=== PATIENT | male | born 1955 | race African-American/Black ===

== ENCOUNTER 2017-01-05 16:24 | Inpatient (IN) | payer OTHER ==
[~2017-01-05] VITALS: Ht 154.9 cm; Wt 43.3 kg
[2017-01-05] VITALS (9 sets, daily range): BP systolic 123–162; BP diastolic 84–109; PULSE 101–120; RESP 20–32; TEMP 98.7–98.8; O2SAT 86–100
--- NOTE | 2017-01-05 16:50 | PD ---
HPI Chief Complaint: Respiratory Distress Time Seen by Provider: 16:48 Travel History International Travel<30 days: No Contact w/Intl Traveler<30days: No Traveled to known affect area: No History of Present Illness HPI 61 YO M with unknown medical history presents to the ED for evaluation of 2 day history of tachypnea, hypoxia, respiratory distress. The patient's brother is at bedside and states that he was discharged from an outside hospital 2 days ago. He is unable to provide any other meaningful history. PFSH Past Medical History Chemotherapy: Yes Social History Tobacco Use: No Allergies-Medications (Allergen,Severity, Reaction): Coded Allergies: No Known Allergies (Unverified , 01/05/17) Reported Meds & Prescriptions Reported Meds & Active Scripts Active No Active Prescriptions or Reported Medications Review of Systems Except as stated in HPI: all other systems reviewed are Neg Physical Exam Narrative GENERAL: Well-nourished, well-developed petite black male in respiratory distress. SKIN: Focused skin assessment warm/dry. HEAD: Normocephalic. EYES: No scleral icterus. No injection or drainage. NECK: Supple, trachea midline. No JVD or lymphadenopathy. CARDIOVASCULAR: Regular rate and rhythm without murmurs, gallops, or rubs. RESPIRATORY: Breath coarse with expiratory wheezes bilaterally. Positive accessory muscle use. Positive retractions. GASTROINTESTINAL: Abdomen soft, non-tender, nondistended. MUSCULOSKELETAL: No cyanosis. Anasarca. BACK: Nontender without obvious deformity. No CVA tenderness. Data Data Last Documented VS Vital Signs Date Time Temp Pulse Resp B/P (MAP) Pulse Ox O2 Delivery O2 Flow Rate FiO2 01/05/17 18:49 97 Nasal Cannula 4.00 01/05/17 18:46 101 23 162/109 (126) 01/05/17 17:26 60 01/05/17 16:56 98.7 Orders Orders Complete Blood Count With Diff (01/05/17 16:52) Comprehensive Metabolic Panel (01/05/17 16:52) B-Type Natriuretic Peptide (01/05/17 16:52) Act Partial Throm Time (Ptt) (01/05/17 16:52) Prothrombin Time / Inr (Pt) (01/05/17 16:52) Ckmb (Isoenzyme) Profile (01/05/17 16:52) Troponin I (01/05/17 16:52) Arterial Blood Gas (Abg) (01/05/17 16:52) Urinalysis - C+S If Indicated (01/05/17 16:52) Iv Access Insert/Monitor (01/05/17 16:52) Electrocardiogram (01/05/17 16:52) Ecg Monitoring (01/05/17 16:52) Oximetry (01/05/17 16:52) Oxygen Administration (01/05/17 16:52) Chest, Single Ap (01/05/17 16:52) Sodium Chloride 0.9% Flush (Ns Flush) (01/05/17 17:00) Methylprednisolone So Succ Inj (Solumedr (01/05/17 17:00) Resp Bipap / Cpap Non Invas Vt (01/05/17 17:19) Resp Blood Gas Venous (01/05/17 ) Furosemide Inj (Lasix Inj) (01/05/17 18:30) Restraints Non-Violent VIKTORIA.Q3H (01/05/17 18:33) Lorazepam Inj (Ativan Inj) (01/05/17 18:45) Urinary Catheter Insert/Apply (01/05/17 18:33) Albuterol-Ipratropium Neb (Duoneb Neb) (01/05/17 18:45) CKMB (01/05/17 17:10) CKMB% (01/05/17 17:10) Admit Order (Ed Use Only) (01/05/17 19:45) Labs Laboratory Tests Test 01/05/17 17:10 01/05/17 18:00 01/05/17 18:06 White Blood Count 10.5 TH/MM3 Red Blood Count 4.33 MIL/MM3 Hemoglobin 12.3 GM/DL Hematocrit 37.5 % Mean Corpuscular Volume 86.8 FL Mean Corpuscular Hemoglobin 28.4 PG Mean Corpuscular Hemoglobin Concent 32.7 % Red Cell Distribution Width 16.4 % Platelet Count 214 TH/MM3 Mean Platelet Volume 6.9 FL Neutrophils (%) (Auto) 84.3 % Lymphocytes (%) (Auto) 2.7 % Monocytes (%) (Auto) 11.1 % Eosinophils (%) (Auto) 1.6 % Basophils (%) (Auto) 0.3 % Neutrophils # (Auto) 8.9 TH/MM3 Lymphocytes # (Auto) 0.3 TH/MM3 Monocytes # (Auto) 1.2 TH/MM3 Eosinophils # (Auto) 0.2 TH/MM3 Basophils # (Auto) 0.0 TH/MM3 CBC Comment AUTO DIFF Differential Comment AUTO DIFF CONFIRMED Platelet Estimate NORMAL Platelet Morphology Comment NORMAL Prothrombin Time 12.7 SEC Prothromb Time International Ratio 1.1 RATIO Activated Partial Thromboplast Time 27.6 SEC Blood Urea Nitrogen 9 MG/DL Creatinine 0.60 MG/DL Random Glucose 54 MG/DL Total Protein 6.8 GM/DL Albumin 2.6 GM/DL Calcium Level 7.7 MG/DL Alkaline Phosphatase 82 U/L Aspartate Amino Transf (AST/SGOT) 49 U/L Alanine Aminotransferase (ALT/SGPT) 20 U/L Total Bilirubin 0.9 MG/DL Sodium Level 123 MEQ/L Potassium Level 3.9 MEQ/L Chloride Level 90 MEQ/L Carbon Dioxide Level 24.0 MEQ/L Anion Gap 9 MEQ/L Estimat Glomerular Filtration Rate 167 ML/MIN Total Creatine Kinase 462 U/L Creatine Kinase MB 6.3 NG/ML Creatine Kinase MB % 1.4 % Troponin I LESS THAN 0.02 NG/ML B-Type Natriuretic Peptide 114 PG/ML Urine Color YELLOW Urine Turbidity CLEAR Urine pH 5.5 Urine Specific [place] 1.022 Urine Protein TRACE mg/dL Urine Glucose (UA) NEG mg/dL Urine Ketones NEG mg/dL Urine Occult Blood NEG Urine Nitrite NEG Urine Bilirubin NEG Urine Urobilinogen 2.0 MG/DL Urine Leukocyte Esterase NEG Urine WBC 1 /hpf Urine Hyaline Casts 6 /lpf Urine Granular Casts 1 /lpf Urine Mucus FEW /lpf Microscopic Urinalysis Comment CULT NOT INDICATED Urine Osmolality 722 MOSM/KG Urine Random Sodium 83 MEQ/L Urine Random Potassium 55 MEQ/L Urine Random Chloride 180 MEQ/L Blood Gas Puncture Site VENOUS Blood Gas Patient Temperature 98.6 Blood Gas HCO3 26 mmol/L Blood Gas Base Excess 0.1 mmol/L Blood Gas Oxygen Saturation 18 % Arterial Blood pH 7.29 Arterial Blood Partial Pressure CO2 56 mmHg Arterial Blood Partial Pressure O2 17 mmHG Arterial Blood Oxygen Content 3.1 Vol % Arterial Blood Carboxyhemoglobin 1.3 % Arterial Blood Methemoglobin 0.7 % Blood Gas Hemoglobin 12.0 G/DL Oxygen Delivery Device BIPAP Blood Gas Ventilator Setting 8/5/RATE12 Blood Gas Inspired Oxygen 60 % [facility] Medical Decision Making Medical Screen Exam Complete: Yes Emergency Medical Condition: Yes Interpretation(s) EKG: Rate 98, sinus rhythm. UT interval 120, QRS 76, QTC 394. Normal axis. No acute ST changes. Reviewed by Dr. Singh. Differential Diagnosis CHF versus cirrhosis versus COPD versus pneumonia versus PE versus other Narrative Course 61 YO M with unknown medical history presents to the ED for evaluation of 2 day history of tachypnea, hypoxia, respiratory distress. The patient's brother is at bedside and states that he was discharged from an outside hospital 2 days ago. He is unable to provide any other meaningful history. Records were requested from [facility]. The patient is tachypneic, hypoxic, using accessory muscles, retracting, struggling to breathe on exam. There is pitting edema in the bilateral upper and lower extremities. Patients O2 saturations dipping into the low 80s on NC, nonrebreather was applied. O2 sats essentially unchanged on nonrebreather. The patient was placed on BiPap, 8/5/40% for 30 minutes. Patient currently satting 95-100% on 2L NC. CBC: WBC 10.5. Neutrophil predominant. Hemoglobin 12.3. INR 1.1. CMP: Sodium 123, chloride 90, calcium 7.7. Cardiac enzymes negative 1. EKG as above CXR: Minimal parenchymal changes BNP 114. UA: No culture indicated. He is administered 500 mL's D5W, 60 mg Lasix IV. The patient is extremely restless, taking off his oximeter and O2, attempting to stand and urinate. Colindres catheter, soft restraints and Ativan were ordered. The patient is a poor historian. Unsure of the source of his respiratory distress at this time. Certainly PE is certainly differential. The patient's brother reports a history of lung cancer, but has no further information. Still awaiting records from the outside hospital. We'll admit to the medicine service for further evaluation. Dr. Peters agrees to accept the patient to the medicine service. Please see medicine note for disposition. Scripts No Active Prescriptions or Reported Meds Trish Ni Jan 05, 2017 16:49
[2017-01-05] MEDS ORDERED: methylPREDNISolone SOD SUCC 125 MG/2 ML VIAL IV PUSH ONE (17:00)
[2017-01-05] MEDS ORDERED: SODIUM CHLORIDE 0.9% FLUSH 10 ML FLUSH IVF PRN (17:00)
--- NOTE | 2017-01-05 17:35 | RADRPT ---
EXAM DATE/TIME: 01/05/2017 17:31 [facility] COMPARISON: No previous studies available for comparison. INDICATIONS : Shortness of breath MEDICAL HISTORY : None. SURGICAL HISTORY : None. ENCOUNTER: Initial ACUITY: 1 day PAIN SCORE: Non-responsive. LOCATION: Bilateral chest FINDINGS: Minimal parenchymal changes left base. There is no pneumothorax or pleural effusion.. The cardiomed iastinal contours are unremarkable. Degenerative changes are present about both shoulders CONCLUSION: Minimal parenchymal changes left base Degenerative changes both shoulders. Bang Sandoval MD FACR on January 05, 2017 at 17:33 Board Certified Radiologist. This report was verified electronically.
[2017-01-05 18:14] LABS: BLOOD GAS BASE EXCESS 0.1 mmol/L (-2-2); BLOOD GAS CARBOXYHEMOGLOBIN 1.3 % (0-4); BLOOD GAS HCO3 26 mmol/L (22-26); BLOOD GAS METHEMOGLOBIN 0.7 % (0-2); BLOOD GAS O2 HGB SATURATION 18 % (90-100); BLOOD GAS OXYGEN CONTENT 3.1 Vol % (12.0-20.0); BLOOD GAS PCO2 56 mmHg (38-42); BLOOD GAS PO2 17 mmHG (61-120); CRITICAL VALUE YES; FIO2 60 %; OXYGEN DEVICE BIPAP; TEMP CORR TO 98.6
[2017-01-05 18:15] LABS: DRAW SITE VENOUS; STAT YES
[2017-01-05] MEDS ORDERED: FUROSEMIDE 20 MG/2 ML VIAL IV PUSH ONE (18:30)
[2017-01-05] MEDS ORDERED: LORazepam 2 MG/ML VIAL IM ONE (18:45)
[2017-01-05] MEDS ORDERED: RESP: ALBUTEROL 2.5 MG/IPRATROPIUM 0.5 MG NEB (SCH) INH (18:45)
[2017-01-05 18:46] LABS: AUTOMATED NEUTROPHIL # 8.9 TH/MM3 (1.8-7.7); BASOPHIL % 0.3 % (0.0-2.0); EOSINOPHIL # 0.2 TH/MM3 (0-0.4); EOSINOPHIL % 1.6 % (0.0-4.0); HEMATOCRIT 37.5 % (39.0-51.0); LYMPH % 2.7 % (9.0-44.0); LYMPHOCYTE # 0.3 TH/MM3 (1.0-4.8); MEAN CELL VOLUME 86.8 FL (80.0-100.0); MEAN CORPUSCULAR HEMOGLOBIN 28.4 PG (27.0-34.0); MEAN CORPUSCULAR HGB CONC 32.7 % (32.0-36.0); MONO % 11.1 % (0.0-8.0); NEUT % 84.3 % (16.0-70.0); PLATELET COUNT 214 TH/MM3 (150-450); RED BLOOD COUNT 4.33 MIL/MM3 (4.50-5.90); RED CELL DISTRIBUTION WIDTH 16.4 % (11.6-17.2); WHITE BLOOD COUNT 10.5 TH/MM3 (4.0-11.0)
[2017-01-05 18:53] LABS: APTT (PATIENT) 27.6 SEC (24.3-30.1); HEMO FLAGS AUTO DIFF; INTERNATIONAL NORMALIZED RATIO 1.1 RATIO; PROTHROMBIN TIME - PATIENT 12.7 SEC (9.8-11.6)
[2017-01-05 19:01] LABS: ALT (GPT) 20 U/L (12-78); ANION GAP 9 MEQ/L (5-15); AST (GOT) 49 U/L (15-37); BLOOD UREA NITROGEN 9 MG/DL (7-18); CHLORIDE 90 MEQ/L (98-107); GLOMERULAR FILTRATION RATE 167 ML/MIN (>89)
[2017-01-05 19:02] LABS: BLOOD, URINE NEG (NEG); COMMENT (UR) CULT NOT INDICATED; CULTURE IF INDICATED CULT NOT INDICATED; GLUCOSE,URINE NEG (NEG); GRANULAR CAST, URINE 1 /lpf; HYALINE CAST, URINE 6 /lpf (RARE); KETONE, URINE NEG (NEG); MUCUS URINE FEW /lpf (OCC); NITRITE,URINE NEG (NEG); PH, URINE 5.5 (5.0-8.5); URINE COLOR YELLOW (YELLW/STRAW)
[2017-01-05 19:11] LABS: ALKALINE PHOSPHATASE 82 U/L (45-117); CREATINE KINASE 462 U/L (39-308); POTASSIUM 3.9 MEQ/L (3.5-5.1); TOTAL BILIRUBIN ADULT 0.9 MG/DL (0.2-1.0)
[2017-01-05 19:14] LABS: SODIUM (NA) 123 MEQ/L (136-145)
[2017-01-05 19:24] LABS: PLATELET ESTIMATE SMEAR NORMAL (NORMAL); PLATELET MORPHOLOGY NORMAL (NORMAL); SCAN/DIFF AUTO DIFF CONFIRMED
[2017-01-05 19:29] LABS: CKMB 6.3 NG/ML (0.5-3.6)
[2017-01-05] MEDS ORDERED: ONDANSETRON HCL 4 MG/2 ML VIAL IVP PRN (20:00)
[2017-01-05] MEDS ORDERED: DEXTROSE 5% IN WATE 500 ML INJ 500 ML IV ONE (20:00)
[2017-01-05] MEDS ORDERED: SODIUM CHLORIDE 0.9% FLUSH 10 ML FLUSH IV FLUSH PRN (20:00)
[2017-01-05] MEDS ORDERED: ACETAMINOPHEN 325 MG TAB PO PRN (20:00)
[2017-01-05] MEDS ORDERED: MAGNESIUM HYDROXIDE SUSP 30 ML CUP PO PRN (20:00)
[2017-01-05] MEDS ORDERED: LACTULOSE SYRUP 20 GM/30 ML CUP PO PRN (20:00)
[2017-01-05] MEDS ORDERED: MORPHINE SULFATE 4 MG/ML INJ IV PUSH PRN (20:00)
[2017-01-05] MEDS ORDERED: SENNOSIDES 8.6 MG TAB PO PRN (20:00)
[2017-01-05] MEDS ORDERED: BISACODYL 10 MG SUPP RECTAL PRN (20:00)
[2017-01-05] MEDS ORDERED: RESP: ALBUTEROL 2.5 MG/IPRATROPIUM 0.5 MG NEB (PRN) NEB (20:15)
[2017-01-05] MEDS ORDERED: CALCIUM GLUCONATE 10% 1 GM/10 ML VIAL IV PUSH ONE (20:30)
--- NOTE | 2017-01-05 20:33 | HHI.HP ---
[facility] No Primary Care Physician Admission Diagnosis respiratory distress Diagnoses: (1) Respiratory distress Diagnosis: Principal (2) Hypoxia Diagnosis: Principal (3) Lung cancer Diagnosis: Principal (4) Hyponatremia Diagnosis: Principal (5) Hypocalcemia Diagnosis: Principal (6) Rhabdomyolysis Diagnosis: Principal Travel History International Travel<30 Days: No Contact w/Intl Traveler <30 Da: No Traveled to Known Affected Are: No History of Present Illness This is a 61-year-old male with an apparent recent PMH of Lung CA who is brought to the ER by patient's Brother secondary to SOB x2 days. History difficult to obtain from patient upon arrival secondary to significant respiratory distress. O2 sat 86% on RA. Placed on BIPAP w/ mild improvement. BP 123/84, HR 113, Afebrile. Currently O2 sat 95% on 3L NC. Patient able to provide a little more history at this time. States that he was diagnosed with Lung CA approximately one month ago at [facility], states he underwent lung biopsy and chemotherapy but cannot recall name of Oncologist. Records from currently pending. D/c'd approx 1wk ago and has been doing well up until 2 days ago. Denies productive cough or fever. Does report "swelling all over" which is now resolved. WBC 10.5, elevated neutrophil count. Na 123, Ca 7.7, CPK 462. Trop neg. BNP 114. INR 1.1. UA negative. CXR with minimal parenchymal changes left base. S/p Lasix IV in ER in addition to Solu-Medrol and DuoNeb w/ improvement. Review of Systems Except as stated in HPI: all other systems reviewed are Neg ROS: 14 point review of systems otherwise negative. Past Family Social History Past Medical History PMH: Lung CA Past Surgical History PAST SURGICAL HISTORY: None Allergies: Coded Allergies: No Known Allergies (Unverified , 01/05/17) Family History PAST FAMILY HISTORY: Reviewed. No h/o DM or CAD Social History PAST SOCIAL HISTORY: Negative for alcohol. Positive for tobacco, quit 1 mo ago. +Marijuana Physical Exam Vital Signs Vital Signs Date Time Temp Pulse Resp B/P (MAP) Pulse Ox O2 Delivery O2 Flow Rate FiO2 01/05/17 20:00 120 20 125/89 (101) 95 Nasal Cannula 3.00 01/05/17 18:49 97 Nasal Cannula 4.00 01/05/17 18:46 101 23 162/109 (126) 98 Nasal Cannula 3.00 01/05/17 17:26 100 60 01/05/17 17:25 100 BiPAP 60 01/05/17 16:56 98.7 105 32 160/107 (124) 98 01/05/17 16:55 105 32 98 Nasal Cannula 4.00 01/05/17 16:55 (97) 98 Nasal Cannula 4.00 01/05/17 16:55 98 Nasal Cannula 4.00 01/05/17 16:25 98.8 113 22 123/84 (97) 86 Physical Exam PE: GENERAL: Middle-aged black male in no acute distress. On NC. HEENT: PERRLA, EOMI. No scleral icterus or conjunctival pallor. No lid lag or facial droop. CARDIOVASCULAR: Regular rate and rhythm. No obvious murmurs to auscultation. No chest tenderness to palpation. RESPIRATORY: Coarse breath sounds, occasional wheezing. Clear to auscultation. Breath sounds equal bilaterally. GASTROINTESTINAL: Abdomen soft, non-tender, nondistended. BS normal. MUSCULOSKELETAL: Extremities without clubbing, cyanosis, or edema. No obvious deformities. NEUROLOGICAL: Awake, alert and oriented x4. No focal neurologic deficits. Moving both upper and lower extremities spontaneously. Laboratory Laboratory Tests Test 01/05/17 17:10 01/05/17 18:00 01/05/17 18:06 White Blood Count 10.5 Red Blood Count 4.33 Hemoglobin 12.3 Hematocrit 37.5 Mean Corpuscular Volume 86.8 Mean Corpuscular Hemoglobin 28.4 Mean Corpuscular Hemoglobin Concent 32.7 Red Cell Distribution Width 16.4 Platelet Count 214 Mean Platelet Volume 6.9 Neutrophils (%) (Auto) 84.3 Lymphocytes (%) (Auto) 2.7 Monocytes (%) (Auto) 11.1 Eosinophils (%) (Auto) 1.6 Basophils (%) (Auto) 0.3 Neutrophils # (Auto) 8.9 Lymphocytes # (Auto) 0.3 Monocytes # (Auto) 1.2 Eosinophils # (Auto) 0.2 Basophils # (Auto) 0.0 CBC Comment AUTO DIFF Differential Comment AUTO DIFF CONFIRMED Platelet Estimate NORMAL Platelet Morphology Comment NORMAL Prothrombin Time 12.7 Prothromb Time International Ratio 1.1 Activated Partial Thromboplast Time 27.6 Blood Urea Nitrogen 9 Creatinine 0.60 Random Glucose 54 Total Protein 6.8 Albumin 2.6 Calcium Level 7.7 Alkaline Phosphatase 82 Aspartate Amino Transf (AST/SGOT) 49 Alanine Aminotransferase (ALT/SGPT) 20 Total Bilirubin 0.9 Sodium Level 123 Potassium Level 3.9 Chloride Level 90 Carbon Dioxide Level 24.0 Anion Gap 9 Estimat Glomerular Filtration Rate 167 Total Creatine Kinase 462 Creatine Kinase MB 6.3 Creatine Kinase MB % 1.4 Troponin I LESS THAN 0.02 Urine Color YELLOW Urine Turbidity CLEAR Urine pH 5.5 Urine Specific [place] 1.022 Urine Protein TRACE Urine Glucose (UA) NEG Urine Ketones NEG Urine Occult Blood NEG Urine Nitrite NEG Urine Bilirubin NEG Urine Urobilinogen 2.0 Urine Leukocyte Esterase NEG Urine WBC 1 Urine Hyaline Casts 6 Urine Granular Casts 1 Urine Mucus FEW Microscopic Urinalysis Comment CULT NOT INDICATED Blood Gas Puncture Site VENOUS Blood Gas Patient Temperature 98.6 Blood Gas HCO3 26 Blood Gas Base Excess 0.1 Blood Gas Oxygen Saturation 18 Arterial Blood pH 7.29 Arterial Blood Partial Pressure CO2 56 Arterial Blood Partial Pressure O2 17 Arterial Blood Oxygen Content 3.1 Arterial Blood Carboxyhemoglobin 1.3 Arterial Blood Methemoglobin 0.7 Blood Gas Hemoglobin 12.0 Oxygen Delivery Device BIPAP Blood Gas Ventilator Setting 8/5/RATE12 Blood Gas Inspired Oxygen 60 Result Diagram: 01/05/17170901/05/171709 Caprini VTE Risk Assessment Caprini VTE Risk Assessment: Mod/High Risk (score >= 2) Caprini Risk Assessment Model Point Value = 1 Point Value = 2 Point Value = 3 Point Value = 5 Age 41-60 Minor surgery BMI > 25 kg/m2 Swollen legs Varicose veins or History of unexplained or recurrent spontaneous Oral contraceptives or hormone replacement Sepsis (< 1 month) Serious lung disease, including pneumonia (< 1 month) Abnormal pulmonary function Acute myocardial infarction Congestive heart failure (< 1 month) History of inflammatory bowel disease Medical patient at bed rest Age 61-74 Arthroscopic surgery Major open surgery (> 45 min) Laparoscopic surgery (> 45 min) Malignancy Confined to bed (> 72 hours) Immobilizing plaster cast Central venous access Age >= 75 History of VTE Family history of VTE Factor V Leiden Prothrombin [id number] Lupus anticoagulant Anticardiolipin antibodies Elevated serum homocysteine Heparin-induced thrombocytopenia Other congenital or acquired thrombophilia Stroke (< 1 month) Elective arthroplasty Hip, pelvis, or leg fracture Acute spinal cord injury (< 1 month) Prophylaxis Regimen Total Risk Factor Score Risk Level Prophylaxis Regimen 0-1 Low Early ambulation 2 Moderate Order ONE of the following: *Sequential Compression Device (SCD) *Heparin 5000 units SQ BID 3-4 Higher Order ONE of the following medications: *Heparin 5000 units SQ TID *Enoxaparin/Lovenox 40 mg SQ daily (WT < 150 kg, CrCl > 30 mL/min) *Enoxaparin/Lovenox 30 mg SQ daily (WT < 150 kg, CrCl > 10-29 mL/min) *Enoxaparin/Lovenox 30 mg SQ BID (WT < 150 kg, CrCl > 30 mL/min) AND/OR *Sequential Compression Device (SCD) 5 or more Highest Order ONE of the following medications: *Heparin 5000 units SQ TID (Preferred with Epidurals) *Enoxaparin/Lovenox 40 mg SQ daily (WT < 150 kg, CrCl > 30 mL/min) *Enoxaparin/Lovenox 30 mg SQ daily (WT < 150 kg, CrCl > 10-29 mL/min) *Enoxaparin/Lovenox 30 mg SQ BID (WT < 150 kg, CrCl > 30 mL/min) AND *Sequential Compression Device (SCD) Assessment and Plan Problem List: (1) Respiratory distress ICD Code: R06.00 - Dyspnea, unspecified (2) Hypoxia ICD Code: R09.02 - Hypoxemia (3) Lung cancer ICD Code: C34.90 - Malignant neoplasm of unspecified part of unspecified bronchus or lung (4) Hypocalcemia ICD Code: E83.51 - Hypocalcemia (5) Hyponatremia ICD Code: E87.1 - Hypo-osmolality and hyponatremia (6) Rhabdomyolysis ICD Code: M62.82 - Rhabdomyolysis Assessment and Plan A/P: 1. Respiratory Distress: Acute Respiratory Failure. Severe. +respiratory distress w/ retractions, requiring BIPAP, now weaned to NC. +wheezing on exam, s/p Solu-Medrol, DuoNeb in ER w/ some improvement, will continue. BNP mildly elevated, no significant fluid overload on exam. CXR w/ no acute findings except for minimal parenchymal changes at left base, images reviewed by me. WBC normal, however elevated neutrophil count, ? early PNA. Will start on empiric treatment w/ Rocephin/Zithro. Apparent h/o recently diagnosed Lung Ca, ? PE, will check CTA Pulm for possible PE. 2. Hypoxia: O2 sat 86% on RA, placed on BIPAP upon arrival w/ improvement, O2 sat 95% on 3L NC at this time. Monitor O2. Check CTA Pulm as above. 3. Lung CA: reports recent diagnosis of Lung Ca approx 1mo ago at [facility] , s/p biopsy and started on chemotherapy. Cannot recall name of Oncologist. Records from pending, will follow. Check CTA as above. 4. Hyponatremia: Na 123, secondary to dehydration vs possible SIADH from underlying Lung CA. S/p Lasix and IVF in ER. Monitor Na, repeat labs in am. Check urine electrolytes, urine osmolality. 5. Hypocalcemia: Ca 7.7, will replace and recheck in am. 6. Rhabdomyolysis: Mild. CPK 462. Will check serial CPK, IVF for hydration. 7. DVT Prophylaxis: Heparin sq 8. Social work for d/c planning as needed. 9. Case discussed w/ ER physician at length. Physician Certification 2 Midnight Certification Type: Admission for Inpatient Services Order for Inpatient Services The services are ordered in accordance with Medicare regulations or non- Medicare payer requirements, as applicable. In the case of services not specified as inpatient-only, they are appropriately provided as inpatient services in accordance with the 2-midnight benchmark. Estimated LOS (days): 2 days is the estimated time the patient will need to remain in the hospital, assuming treatment plan goals are met and no additional complications. Post-Hospital Plan: Not yet determined Radha Peters MD Jan 05, 2017 20:33
--- NOTE | 2017-01-05 20:53 | EKG ---
Date Performed: 01/05/2017 Time Performed: 17:38:07 PTAGE: 61 years EKG: Baseline artifact present Sinus rhythm LOW QRS VOLTAGE IN EXTREMITY LEADS BORDERLINE ECG INTERPRETATION BASED ON A DEFAULT AGE OF 42 YEARS NO PREVIOUS TRACING DOCTOR: Joel Godinez Interpretating Date/Time 01/05/2017 20:52:32
[2017-01-05] MEDS ORDERED: CALCIUM GLUCONATE INJ 1 GM in SODIUM CHLORIDE 0.9% INJ 100 ML IV ONE (21:00)
[2017-01-05] MEDS: SODIUM CHLORIDE 0.9% FLUSH 10 ML FLUSH IV FLUSH SCH (21:00)
[2017-01-05] MEDS: AZITHROMYCIN INJ 500 MG in SODIUM CHLOR 0.9% 250 ML INJ 250 ML IV SCH (21:30)
[2017-01-05] MEDS: DOCUSATE SODIUM 50 MG/SENNA 8.6 MG TAB PO SCH (21:34)
[2017-01-05] MEDS ORDERED: IOHEXOL 350 MG/ML 10 ML VIAL (for RAD DIAG) IVCONTRAST ONE (22:29)
--- NOTE | 2017-01-05 22:49 | RADRPT ---
EXAM DATE/TIME: 01/05/2017 22:21 [facility] COMPARISON: No previous studies available for comparison. INDICATIONS : Shortness of breath. IV CONTRAST: 75 cc Omnipaque 350 (iohexol) IV RADIATION DOSE: 5.81 CTDIvol (mGy) MEDICAL HISTORY : Lung cancer. SURGICAL HISTORY : None. ENCOUNTER: Initial ACUITY: 1 day PAIN SCALE: 10/10 LOCATION: chest TECHNIQUE: Volumetric scanning of the chest was performed using a pulmonary embolism protocol MIP images were re constructed. Using automated exposure control and adjustment of the mA and/or kV according to patien t size, radiation dose was kept as low as reasonably achievable to obtain optimal diagnostic quality images. DICOM format image data is available electronically for review and comparison. Follow-up recommendations for detected pulmonary nodules are based at a minimum on nodule size and pa tient risk factors according to Fleischner Society Guidelines. FINDINGS: Small segmental pulmonary embolus seen posteromedially of the right lower lobe. No other pulmonary em boli are demonstrated. Normal heart size. There is left-sided predominant coronary artery calcificati on. There is a 16 x 28 mm right hilar lymph node. 18 x 39 mm subcarinal lymph node and multiple paraesoph ageal posterior mediastinal lymph nodes that measure up to 2 cm in size. An approximately 18 mm spicu lated mass is seen in the right upper lobe. This is most likely treated tumor. I don't have any perti nent priors. There are small bilateral pleural effusions. Numerous sclerotic foci are seen of the visualized osseous structures CONCLUSION: 1. Small right lower lobe pulmonary embolus. 2. Site of reported primary bronchogenic carcinoma likely in the right upper lobe with an 18 mm spicu lated soft tissue area is seen currently. There is mediastinal and right hilar lymphadenopathy as janie cribed above, pathologic by size criteria. 3. Small bilateral pleural effusions. 4. Coronary artery calcification. 5. Numerous sclerotic metastatic bone lesions. Dae Hair MD on January 05, 2017 at 22:43 Board Certified Radiologist. This report was verified electronically.
[2017-01-05] MEDS: methylPREDNISolone SOD SUCC 40 MG/1 ML VIAL IV PUSH SCH (23:38)
[2017-01-05] MEDS: cefTRIAXone INJ 1,000 MG in SODIUM CHLORIDE 0.9% INJ 100 ML IV SCH (23:56)
[2017-01-06] VITALS (8 sets, daily range): BP systolic 101–149; BP diastolic 66–91; PULSE 87–107; RESP 14–20; TEMP 98–98.6; O2SAT 90–98
[2017-01-06 01:53] LABS: CREATINE KINASE 391 U/L (39-308)
[2017-01-06 02:06] LABS: CKMB 5.6 NG/ML (0.5-3.6)
[2017-01-06] MEDS: ACETAMINOPHEN/HYDROcodone 325 MG/5 MG TAB PO PRN ×2 (05:41→18:52)
[2017-01-06] MEDS: methylPREDNISolone SOD SUCC 40 MG/1 ML VIAL IV PUSH SCH ×4 (05:46→23:51)
[2017-01-06] MEDS: RESP: ALBUTEROL 2.5 MG/IPRATROPIUM 0.5 MG NEB (SCH) NEB ×4 (08:41→19:15)
[2017-01-06] MEDS ORDERED: HEPARIN SODIUM - SQ 10,000 UNITS/ML VIAL SQ SCH (09:00)
--- NOTE | 2017-01-06 09:03 | HHI.PR ---
Subjective Remarks Follow up for respiratory distress, PE, lung cancer. Patient has no acute concerns. No fever, chills. He goes to oncology for his lung cancer. Objective Vitals Vital Signs Date Time Temp Pulse Resp B/P (MAP) Pulse Ox O2 Delivery O2 Flow Rate FiO2 01/06/17 08:42 93 Nasal Cannula 2.00 01/06/17 08:00 98.0 87 14 101/66 (78) 95 01/06/17 06:48 18 01/06/17 04:00 98.0 99 20 149/70 (96) 98 01/06/17 04:00 98.0 99 20 149/70 (96) 98 01/06/17 02:35 18 01/06/17 00:00 98.3 107 18 121/70 (87) 98 01/05/17 22:48 01/05/17 21:36 119 20 150/101 (117) 94 Nasal Cannula 3.00 01/05/17 20:15 93 Nasal Cannula 3.00 01/05/17 20:00 120 20 125/89 (101) 95 Nasal Cannula 3.00 01/05/17 18:49 97 Nasal Cannula 4.00 01/05/17 18:46 101 23 162/109 (126) 98 Nasal Cannula 3.00 01/05/17 17:26 100 60 01/05/17 17:25 100 BiPAP 60 01/05/17 16:56 98.7 105 32 160/107 (124) 98 01/05/17 16:55 105 32 98 Nasal Cannula 4.00 01/05/17 16:55 (97) 98 Nasal Cannula 4.00 01/05/17 16:55 98 Nasal Cannula 4.00 01/05/17 16:25 98.8 113 22 123/84 (97) 86 I/O 01/05/17 01/05/17 01/05/17 01/06/17 01/06/17 01/06/17 07:00 15:00 23:00 07:00 15:00 23:00 Intake Total 730 ml 250 ml Output Total 1600 ml 3350 ml Balance -870 ml -3100 ml Intake Oral 120 ml IV Total 610 ml 250 ml Output Urine Total 1600 ml 3350 ml Result Diagram: 01/05/17 1710 01/05/17 1710 Imaging Last Impressions Chest X-Ray 01/05/17 1652 Signed Impressions: Service Date/Time: Thursday, January 05, 2017 17:31 - CONCLUSION: Minimal parenchymal changes left base Degenerative changes both shoulders. Bang Sandoval MD FACR CT Angiography 01/05/17 0000 Signed Impressions: Service Date/Time: Thursday, January 05, 2017 22:21 - CONCLUSION: 1. Small right lower lobe pulmonary embolus. 2. Site of reported primary bronchogenic carcinoma likely in the right upper lobe with an 18 mm spiculated soft tissue area is seen currently. There is mediastinal and right hilar lymphadenopathy as described above, pathologic by size criteria. 3. Small bilateral pleural effusions. 4. Coronary artery calcification. 5. Numerous sclerotic metastatic bone lesions. Dae Hair MD Objective Remarks GENERAL: Alert, NAD. SKIN: Warm and dry. HEAD: Normocephalic. EYES: No scleral icterus. No injection or drainage. NECK: Supple, trachea midline. No JVD or lymphadenopathy. CARDIOVASCULAR: Regular rate and rhythm without murmurs, gallops, or rubs. RESPIRATORY: Breath sounds equal bilaterally. No accessory muscle use. GASTROINTESTINAL: Abdomen soft, non-tender, nondistended. MUSCULOSKELETAL: No cyanosis, or edema. BACK: Nontender without obvious deformity. No CVA tenderness. Procedures None. A/P Problem List: (1) Respiratory distress ICD Code: R06.00 - Dyspnea, unspecified (2) Hypoxia ICD Code: R09.02 - Hypoxemia (3) Lung cancer ICD Code: C34.90 - Malignant neoplasm of unspecified part of unspecified bronchus or lung (4) Hypocalcemia ICD Code: E83.51 - Hypocalcemia (5) Hyponatremia ICD Code: E87.1 - Hypo-osmolality and hyponatremia (6) Rhabdomyolysis ICD Code: M62.82 - Rhabdomyolysis Assessment and Plan This is a 61-year-old male with an apparent recent PMH of Lung CA who is brought to the ER by patient's Brother secondary to SOB x2 days. He was diagnosed with Lung CA approximately one month ago at [facility], states he underwent lung biopsy and chemotherapy but cannot recall name of Oncologist. CT PE study shows right sided PE. - Acute respiratory failure hypoxia - Right Lower lobe Pulmonary embolism - Lung cancer - Continue supplemental O2 via NC. - Wean off O2 if possible. - Start Lovenox 1mg/kg (40mg Q12hrs). - Follow up with oncology. - Hyponatremia - Hypocalcemia - Na improved from 123 --> 131. - Possibly related to SIADH. - Ca was 7.7, replaced, improved to 8.4. Full code. Lovenox. Reji Monge DO Jan 06, 2017 09:03
[2017-01-06] MEDS: DOCUSATE SODIUM 50 MG/SENNA 8.6 MG TAB PO SCH ×2 (10:32→22:21)
[2017-01-06] MEDS: SODIUM CHLORIDE 0.9% FLUSH 10 ML FLUSH IV FLUSH SCH ×2 (10:32→22:22)
[2017-01-06 11:27] LABS: BASOPHIL % 0.1 % (0.0-2.0); HEMO FLAGS DIFF FINAL; LYMPH % 1.4 % (9.0-44.0); LYMPHOCYTE # 0.1 TH/MM3 (1.0-4.8); MEAN CELL VOLUME 85.1 FL (80.0-100.0); MEAN CORPUSCULAR HEMOGLOBIN 28.2 PG (27.0-34.0); MEAN CORPUSCULAR HGB CONC 33.2 % (32.0-36.0); MONO % 3.3 % (0.0-8.0); NEUT % 95.2 % (16.0-70.0); PLATELET COUNT 240 TH/MM3 (150-450); RED BLOOD COUNT 3.88 MIL/MM3 (4.50-5.90); RED CELL DISTRIBUTION WIDTH 16.2 % (11.6-17.2); WHITE BLOOD COUNT 10.5 TH/MM3 (4.0-11.0)
[2017-01-06 12:04] LABS: ALKALINE PHOSPHATASE 73 U/L (45-117); ALT (GPT) 20 U/L (12-78); ANION GAP 8 MEQ/L (5-15); AST (GOT) 60 U/L (15-37); BICARBONATE 28.1 MEQ/L (21.0-32.0); BLOOD UREA NITROGEN 11 MG/DL (7-18); CHLORIDE 95 MEQ/L (98-107); CREATINE KINASE 296 U/L (39-308); GLOMERULAR FILTRATION RATE 174 ML/MIN (>89); SODIUM (NA) 131 MEQ/L (136-145); TOTAL BILIRUBIN ADULT 0.7 MG/DL (0.2-1.0)
[2017-01-06 12:07] LABS: POTASSIUM 4.7 MEQ/L (3.5-5.1)
[2017-01-06] MEDS: AZITHROMYCIN INJ 500 MG in SODIUM CHLOR 0.9% 250 ML INJ 250 ML IV SCH (22:22)
[2017-01-06] MEDS: cefTRIAXone INJ 1,000 MG in SODIUM CHLORIDE 0.9% INJ 100 ML IV SCH (22:28)
[2017-01-06] MEDS: ENOXAPARIN SODIUM 40 MG/0.4 ML SYRINGE SQ SCH (22:33)
[2017-01-07] VITALS (9 sets, daily range): BP systolic 113–140; BP diastolic 67–94; PULSE 85–95; RESP 18–20; TEMP 97.9–98.6; O2SAT 92–99
[2017-01-07] MEDS: ACETAMINOPHEN/HYDROcodone 325 MG/5 MG TAB PO PRN ×5 (02:32→22:36)
[2017-01-07] MEDS: methylPREDNISolone SOD SUCC 40 MG/1 ML VIAL IV PUSH SCH ×4 (05:40→23:15)
[2017-01-07] MEDS: RESP: ALBUTEROL 2.5 MG/IPRATROPIUM 0.5 MG NEB (SCH) NEB ×4 (08:06→19:06)
[2017-01-07] MEDS: DOCUSATE SODIUM 50 MG/SENNA 8.6 MG TAB PO SCH ×2 (09:22→21:08)
[2017-01-07] MEDS: ENOXAPARIN SODIUM 40 MG/0.4 ML SYRINGE SQ SCH ×2 (09:23→21:09)
[2017-01-07] MEDS: SODIUM CHLORIDE 0.9% FLUSH 10 ML FLUSH IV FLUSH SCH ×2 (09:23→21:09)
--- NOTE | 2017-01-07 14:29 | HHI.PR ---
Subjective Remarks Follow up for respiratory distress, PE, lung cancer. Patient is doing well. On room air. No acute concerns. Patient apparently was diagnosed with lung cancer at [facility]. However, per patient he was referred to Dr. Fuentes at [facility] for treatment. No fever, chills. Discussed with sister. Objective Vitals Vital Signs Date Time Temp Pulse Resp B/P (MAP) Pulse Ox O2 Delivery O2 Flow Rate FiO2 01/07/17 12:53 98.2 87 19 116/88 (97) 94 01/07/17 08:07 92 01/07/17 08:00 85 01/07/17 08:00 98.6 86 20 134/67 (89) 99 01/07/17 07:00 Nasal Cannula 3.00 21 01/07/17 04:00 98.0 85 20 113/73 (86) 92 01/07/17 03:51 18 01/07/17 02:30 96 Nasal Cannula 3.00 01/07/17 02:07 95 01/07/17 00:00 98.1 92 18 116/84 (95) 96 01/06/17 20:00 98.4 94 20 128/83 (98) 98 01/06/17 16:00 98.6 93 16 132/91 (105) 92 01/06/17 15:37 91 21 I/O 01/06/17 01/06/17 01/06/17 01/07/17 01/07/17 01/07/17 07:00 15:00 23:00 07:00 15:00 23:00 Intake Total 250 ml 920 ml 220 ml 710 ml Output Total 3450 ml 325 ml Balance -3200 ml 920 ml -105 ml 710 ml Intake Oral 920 ml 220 ml 360 ml IV Total 250 ml 350 ml Output Urine Total 3450 ml 325 ml # Voids 3 2 Result Diagram: 01/06/17 1011 01/06/17 1011 Imaging Last Impressions Chest X-Ray 01/05/17 1652 Signed Impressions: Service Date/Time: Thursday, January 05, 2017 17:31 - CONCLUSION: Minimal parenchymal changes left base Degenerative changes both shoulders. Bang Sandoval MD FACR CT Angiography 01/05/17 0000 Signed Impressions: Service Date/Time: Thursday, January 05, 2017 22:21 - CONCLUSION: 1. Small right lower lobe pulmonary embolus. 2. Site of reported primary bronchogenic carcinoma likely in the right upper lobe with an 18 mm spiculated soft tissue area is seen currently. There is mediastinal and right hilar lymphadenopathy as described above, pathologic by size criteria. 3. Small bilateral pleural effusions. 4. Coronary artery calcification. 5. Numerous sclerotic metastatic bone lesions. Dae Hair MD Objective Remarks GENERAL: Alert, NAD. SKIN: Warm and dry. HEAD: Normocephalic. EYES: No scleral icterus. No injection or drainage. NECK: Supple, trachea midline. No JVD or lymphadenopathy. CARDIOVASCULAR: Regular rate and rhythm without murmurs, gallops, or rubs. RESPIRATORY: Breath sounds equal bilaterally. No accessory muscle use. GASTROINTESTINAL: Abdomen soft, non-tender, nondistended. MUSCULOSKELETAL: No cyanosis, or edema. BACK: Nontender without obvious deformity. No CVA tenderness. Procedures None. A/P Problem List: (1) Respiratory distress ICD Code: R06.00 - Dyspnea, unspecified (2) Hypoxia ICD Code: R09.02 - Hypoxemia (3) Lung cancer ICD Code: C34.90 - Malignant neoplasm of unspecified part of unspecified bronchus or lung (4) Hypocalcemia ICD Code: E83.51 - Hypocalcemia (5) Hyponatremia ICD Code: E87.1 - Hypo-osmolality and hyponatremia (6) Rhabdomyolysis ICD Code: M62.82 - Rhabdomyolysis Assessment and Plan This is a 61-year-old male with an apparent recent PMH of Lung CA who is brought to the ER by patient's Brother secondary to SOB x2 days. He was diagnosed with Lung CA approximately one month ago at [facility], states he underwent lung biopsy and chemotherapy but cannot recall name of Oncologist. CT PE study shows right sided PE. - Acute respiratory failure hypoxia - Right Lower lobe Pulmonary embolism - Lung cancer - Continue supplemental O2 via NC. - Wean off O2 if possible. - Lovenox 1mg/kg (40mg Q12hrs). - Per patient, he is scheduled to follow up with Oncology at [facility] (Dr. Fuentes). - Will consult Medical oncology. - Hyponatremia - Hypocalcemia - Na improved from 123 --> 131. - Possibly related to SIADH. - Ca was 7.7, replaced, improved to 8.4. Full code. Lovenox. Ahmed,Shahabuddin DO Jan 07, 2017 2:29 pm
--- NOTE | 2017-01-07 17:42 | MB ---
cc: LYLA PLEITEZ M.D. DATE OF CONSULTATION: 01/07/2017. REASON FOR CONSULTATION: Oncology was consulted to render opinion regarding a patient with newly diagnosed lung cancer. ATTENDING PHYSICIAN: Dr. Monge. HISTORY OF PRESENT ILLNESS The patient is a 61-year-old male who presented to the hospital with complaint of shortness of breath. On presentation he was noted to be hypoxemic. He is a rather poor historian. He stated he was admitted to [facility] last month and was diagnosed with lung cancer. He told me he was treated with radiation but did not receive any chemotherapy. He was supposed to follow up with oncology after discharge but he cannot provide any other information. When he presented here, he had a CT angiogram which showed a small right lower lobe pulmonary embolism. There was a right upper lobe 1.8 cm mass with mediastinal right hilar adenopathy. There were also small bilateral pleural effusions. The patient also stated that he was found to have blood clots when he was at the [facility]. He was given a blood thinner that started with the letter "X" which I am assuming is Xarelto. He is feeling well at this point. He is sitting up and playing games on his phone. He denies any chest pain or palpitations. He denies any significant shortness of breath at this time. He states that he lost about 5 pounds. He denies any headache or visual changes. He denies any bone pain or dysuria or hematuria. PAST MEDICAL HISTORY: 1. Pulmonary embolism. 2. A recent diagnosis of lung cancer. PAST SURGICAL HISTORY: 1. Lung biopsy. FAMILY HISTORY: He has no children. He has two brothers and two sisters all healthy. SOCIAL HISTORY: Smoker about a pack a day for thirty years and quit about a month ago. He denies any alcohol use. He lives with a friend. ALLERGIES: NO KNOWN DRUG ALLERGIES. CURRENT MEDICATIONS: 1. Lovenox. 2. Solu-Medrol. 3. Ceftriaxone. 4. Azithromycin. REVIEW OF SYSTEMS: CONSTITUTIONAL: As above. EYES: Negative. ENT: Negative. CARDIOVASCULAR: As above. RESPIRATORY: As above. GI: Denies any nausea or vomiting diarrhea or abdominal pain. : Denies any dysuria or hematuria. MUSCULOSKELETAL: Negative. HEMATOLOGIC: Negative. ENDOCRINE: Negative. DERMATOLOGIC: Negative. PSYCHIATRIC: Negative. NEUROLOGIC: Negative. PHYSICAL EXAMINATION: VITAL SIGNS: Temperature 98.2, blood pressure 116/80, 02 saturation 94% on three liters nasal cannula. GENERAL: He is alert and oriented times three and in no acute distress. He is ambulating around the room without any difficulty. HEAD, EYES, EARS, NOSE, THROAT: Atraumatic, normocephalic. Pupils equal, round, reactive to light. Extraocular muscles intact. No scleral icterus. OROPHARYNX: Dry mucosa. No lesions. NECK: No thyromegaly. The neck veins are prominent, more so on the left side. CARDIOVASCULAR: Regular S1-S2. No murmur. LUNGS: Slight decreased breath sounds at the lung bases. No wheezing. ABDOMEN: Abdomen soft and nontender. I could not palpate the liver or spleen. EXTREMITIES: No cyanosis or clubbing. No significant edema. BACK: No paravertebral tenderness. SKIN: No rash or petechiae. NEUROLOGIC EXAM: Nonfocal. LABORATORY DATA: Reviewed. ASSESSMENT: 1. Newly diagnosed lung cancer. The patient stated he was diagnosed with lung cancer when he was admitted to [facility] last month. He said he had a lung biopsy. We do not have any of the records at this time. The patient states he was treated with radiation and was supposed to follow up with his oncologist; however, he is not able to provide the name of the oncologist or any details. During this hospital stay he had a CT of the chest which showed a 1.8 cm right upper lobe spiculated mass. There was also mediastinal and right hilar adenopathy. There are small bilateral pleural effusions. There were numerous sclerotic metastatic bone lesions noted. Clinically he has no bone pain. He appeared to have metastatic disease. He is going to need palliative chemotherapy if he wants any treatment. I will recommend outpatient PET/CT scan for further evaluation. He can follow up with his oncologist after discharge for treatment. No oncologic intervention planned during this hospital stay. 2. Pulmonary embolism noted on CT angiogram. He has a small right lower lobe pulmonary embolism. The patient however states that he was told he had blood clot in the lung when he was at [facility]. He was given blood thinner which sounds like Xarelto. He is currently on Lovenox. He could be continued on Lovenox or could be switched to an oral anticoagulation agent for treatment of these pulmonary emboli. RECOMMENDATIONS: 1. Agree to continue with Lovenox and can be switched to a new oral anticoagulation agent. 2. Follow up with his oncologist after discharge for treatment of metastatic lung cancer. Thank you Dr. Monge for asking me to see this patient. MD MECHELLE Evans/REYNOLD /3:49 PM /5:21 PM MTDLeanna
[2017-01-07] MEDS: AZITHROMYCIN INJ 500 MG in SODIUM CHLOR 0.9% 250 ML INJ 250 ML IV SCH (21:08)
[2017-01-07] MEDS: cefTRIAXone INJ 1,000 MG in SODIUM CHLORIDE 0.9% INJ 100 ML IV SCH (22:36)
[2017-01-08] VITALS (10 sets, daily range): BP systolic 103–184; BP diastolic 72–90; PULSE 79–101; RESP 16–18; TEMP 97.4–98.3; O2SAT 91–99
[2017-01-08] MEDS: methylPREDNISolone SOD SUCC 40 MG/1 ML VIAL IV PUSH SCH ×3 (05:51→18:06)
[2017-01-08] MEDS: ACETAMINOPHEN/HYDROcodone 325 MG/5 MG TAB PO PRN ×3 (05:52→20:53)
[2017-01-08 06:11] LABS: BICARBONATE 30.7 MEQ/L (21.0-32.0); MAGNESIUM 2.3 MG/DL (1.5-2.5); POTASSIUM 4.5 MEQ/L (3.5-5.1)
[2017-01-08] MEDS: RESP: ALBUTEROL 2.5 MG/IPRATROPIUM 0.5 MG NEB (SCH) NEB ×4 (08:01→19:47)
[2017-01-08] MEDS: SODIUM CHLORIDE 0.9% FLUSH 10 ML FLUSH IV FLUSH SCH ×2 (08:46→20:53)
[2017-01-08] MEDS: DOCUSATE SODIUM 50 MG/SENNA 8.6 MG TAB PO SCH ×2 (08:46→20:50)
[2017-01-08] MEDS: APIXABAN 5 MG TABLET PO SCH ×2 (08:46→20:50)
[2017-01-08] MEDS: LEVOFLOXACIN 500 MG TAB PO SCH (08:46)
[2017-01-08] MEDS ORDERED: LEVA500T20 PO (10:48)
[2017-01-08] MEDS ORDERED: HYDR-3516 PO (10:48)
[2017-01-08] MEDS ORDERED: APIX5TAB PO (10:48)
[2017-01-08] MEDS ORDERED: VENTAER INH (10:50)
--- NOTE | 2017-01-08 10:52 | HHI.DS ---
Discharge Summary Admission Date Jan 05, 2017 at 20:04 Discharge Date: Jan 08, 2017 Admitting Diagnosis respiratory distress (1) Respiratory distress ICD Code: R06.00 - Dyspnea, unspecified (2) Hypoxia ICD Code: R09.02 - Hypoxemia (3) Lung cancer ICD Code: C34.90 - Malignant neoplasm of unspecified part of unspecified bronchus or lung (4) Hypocalcemia ICD Code: E83.51 - Hypocalcemia (5) Hyponatremia ICD Code: E87.1 - Hypo-osmolality and hyponatremia (6) Rhabdomyolysis ICD Code: M62.82 - Rhabdomyolysis Procedures None. Brief History - From Admission This is a 61-year-old male with an apparent recent PMH of Lung CA who is brought to the ER by patient's Brother secondary to SOB x2 days. History difficult to obtain from patient upon arrival secondary to significant respiratory distress. O2 sat 86% on RA. Placed on BIPAP w/ mild improvement. BP 123/84, HR 113, Afebrile. Currently O2 sat 95% on 3L NC. Patient able to provide a little more history at this time. States that he was diagnosed with Lung CA approximately one month ago at [facility], states he underwent lung biopsy and chemotherapy but cannot recall name of Oncologist. Records from currently pending. D/c'd approx 1wk ago and has been doing well up until 2 days ago. Denies productive cough or fever. Does report "swelling all over" which is now resolved. WBC 10.5, elevated neutrophil count. Na 123, Ca 7.7, CPK 462. Trop neg. BNP 114. INR 1.1. UA negative. CXR with minimal parenchymal changes left base. S/p Lasix IV in ER in addition to Solu-Medrol and DuoNeb w/ improvement. CBC/BMP: 01/06/17 1011 01/08/17 0545 Significant Findings Laboratory Tests Test 01/05/17 17:10 01/05/17 18:00 01/05/17 18:06 01/06/17 01:13 Red Blood Count 4.33 MIL/MM3 (4.50-5.90) Hemoglobin 12.3 GM/DL (13.0-17.0) Hematocrit 37.5 % (39.0-51.0) Mean Platelet Volume 6.9 FL (7.0-11.0) Neutrophils (%) (Auto) 84.3 % (16.0-70.0) Lymphocytes (%) (Auto) 2.7 % (9.0-44.0) Monocytes (%) (Auto) 11.1 % (0.0-8.0) Neutrophils # (Auto) 8.9 TH/MM3 (1.8-7.7) Lymphocytes # (Auto) 0.3 TH/MM3 (1.0-4.8) Monocytes # (Auto) 1.2 TH/MM3 (0-0.9) Prothrombin Time 12.7 SEC (9.8-11.6) Random Glucose 54 MG/DL (74-106) Albumin 2.6 GM/DL (3.4-5.0) Calcium Level 7.7 MG/DL (8.5-10.1) Aspartate Amino Transf (AST/SGOT) 49 U/L (15-37) Sodium Level 123 MEQ/L (136-145) Chloride Level 90 MEQ/L (98-107) Total Creatine Kinase 462 U/L (39-308) 391 U/L (39-308) Creatine Kinase MB 6.3 NG/ML (0.5-3.6) 5.6 NG/ML (0.5-3.6) Troponin I LESS THAN 0.02 NG/ML LESS THAN 0.02 NG/ML B-Type Natriuretic Peptide 114 PG/ML (0-100) Urine Mucus FEW /lpf (OCC) Blood Gas Oxygen Saturation 18 % (90-100) Arterial Blood pH 7.29 (7.380-7.420) Arterial Blood Partial Pressure CO2 56 mmHg (38-42) Arterial Blood Partial Pressure O2 17 mmHG (61-120) Arterial Blood Oxygen Content 3.1 Vol % (12.0-20.0) Test 01/06/17 10:11 01/08/17 05:45 Red Blood Count 3.88 MIL/MM3 (4.50-5.90) Hemoglobin 11.0 GM/DL (13.0-17.0) Hematocrit 33.0 % (39.0-51.0) Neutrophils (%) (Auto) 95.2 % (16.0-70.0) Lymphocytes (%) (Auto) 1.4 % (9.0-44.0) Neutrophils # (Auto) 10.0 TH/MM3 (1.8-7.7) Lymphocytes # (Auto) 0.1 TH/MM3 (1.0-4.8) Creatinine 0.58 MG/DL (0.60-1.30) 0.51 MG/DL (0.60-1.30) Total Protein 6.2 GM/DL (6.4-8.2) Albumin 2.3 GM/DL (3.4-5.0) Calcium Level 8.4 MG/DL (8.5-10.1) 7.9 MG/DL (8.5-10.1) Aspartate Amino Transf (AST/SGOT) 60 U/L (15-37) Sodium Level 131 MEQ/L (136-145) 135 MEQ/L (136-145) Chloride Level 95 MEQ/L (98-107) Troponin I LESS THAN 0.02 NG/ML Phosphorus Level 2.2 MG/DL (2.5-4.9) Imaging Last Impressions Chest X-Ray 01/05/17 1652 Signed Impressions: Service Date/Time: Thursday, January 05, 2017 17:31 - CONCLUSION: Minimal parenchymal changes left base Degenerative changes both shoulders. Bang Sandoval MD FACR CT Angiography 01/05/17 0000 Signed Impressions: Service Date/Time: Thursday, January 05, 2017 22:21 - CONCLUSION: 1. Small right lower lobe pulmonary embolus. 2. Site of reported primary bronchogenic carcinoma likely in the right upper lobe with an 18 mm spiculated soft tissue area is seen currently. There is mediastinal and right hilar lymphadenopathy as described above, pathologic by size criteria. 3. Small bilateral pleural effusions. 4. Coronary artery calcification. 5. Numerous sclerotic metastatic bone lesions. Dae Hair MD PE at Discharge GENERAL: Alert, NAD. SKIN: Warm and dry. HEAD: Normocephalic. EYES: No scleral icterus. No injection or drainage. NECK: Supple, trachea midline. No JVD or lymphadenopathy. CARDIOVASCULAR: Regular rate and rhythm without murmurs, gallops, or rubs. RESPIRATORY: Breath sounds equal bilaterally. No accessory muscle use. GASTROINTESTINAL: Abdomen soft, non-tender, nondistended. MUSCULOSKELETAL: No cyanosis, or edema. BACK: Nontender without obvious deformity. No CVA tenderness. Pt update on day of discharge Patient is doing well. Currently on room air. No fever, chills. Ambulating well. Pt Condition on Discharge: Good Discharge Disposition: Discharge Home Discharge Time: > 30 minutes Discharge Instructions DIET: Follow Instructions for: As Tolerated, No Restrictions Activities you can perform: Regular-No Restrictions Follow up Referrals: Oncology/Hematology - 1 Week PCP Follow-up - 1 Week New Medications: Albuterol 18 GM Inh (Ventolin Hfa 18 GM Inh) 90 Mcg/Act Aer 1 PUFF INH Q4H PRN for SHORTNESS OF BREATH, #1 INHALER 0 Refills Apixaban (Eliquis) 5 Mg Tab 5 MG PO BID for Blood Clot Prevention, #42 TAB Take 2 tablets (total 10mg) TWICE a day until 01/14/2017. THEN START 1 tablet TWICE a day starting 01/15/2017 Hydrocodone-Acetaminophen (Hydrocodone-Acetaminophen) 5-325 mg Tab 1 TAB PO Q6HR PRN for PAIN SCALE 4 TO 10, #20 TAB Levofloxacin (Levaquin) 500 Mg Tablet 500 MG PO DAILY for Infection, #4 TAB Reji Monge DO Jan 08, 2017 10:52
--- NOTE | 2017-01-08 12:14 | PD.ONC.PN ---
Subjective Subjective Remarks Afebrile overnight. Patient resting in room. Eager to go home, if possible. Objective Data Date Time Temp Pulse Resp B/P (MAP) Pulse Ox O2 Delivery O2 Flow Rate FiO2 01/08/17 11:53 2.00 01/08/17 08:35 Room Air 01/08/17 08:03 95 Nasal Cannula 3.00 01/08/17 08:00 98.2 79 17 120/81 (94) 92 01/08/17 04:59 98.3 86 16 103/72 (82) 99 01/08/17 01:04 81 01/08/17 00:49 95 Room Air 01/08/17 00:30 97.4 82 16 124/89 (101) 95 01/07/17 21:32 97.9 94 19 130/85 (100) 95 01/07/17 16:00 98.6 91 18 140/94 (109) 93 01/07/17 15:29 94 Nasal Cannula 3.00 01/07/17 12:53 98.2 87 19 116/88 (97) 94 01/08/17 01/08/17 01/08/17 07:00 15:00 23:00 Intake Total 550 ml Balance 550 ml Result Diagram: 01/06/17 1011 01/08/17 0545 Laboratory Results Laboratory Tests Test 01/08/17 05:45 Blood Urea Nitrogen 10 MG/DL Creatinine 0.51 MG/DL Random Glucose 92 MG/DL Calcium Level 7.9 MG/DL Phosphorus Level 2.2 MG/DL Magnesium Level 2.3 MG/DL Sodium Level 135 MEQ/L Potassium Level 4.5 MEQ/L Chloride Level 99 MEQ/L Carbon Dioxide Level 30.7 MEQ/L Anion Gap 5 MEQ/L Estimat Glomerular Filtration Rate 202 ML/MIN Administered Medications Medications (Trade) Dose Ordered Sig/Shravan Route PRN Reason Start Time Stop Time Status Last Admin Dose Admin Sodium Chloride (NS Flush) 2 ml BID IV FLUSH 01/05/17 21:00 01/08/17 08:46 Acetaminophen/ Hydrocodone Bitart ([place] 5-325 Mg) 1 tab Q4H PRN PO PAIN SCALE 3 TO 5 01/05/17 20:00 01/08/17 05:52 Morphine Sulfate (Morphine Inj) 2 mg Q3H PRN IV PUSH Pain 6-10 01/05/17 20:00 01/06/17 02:02 Senna/Docusate Sodium (Darcy-Colace) 1 tab BID PO 01/05/17 21:00 01/08/17 08:46 Albuterol/ Ipratropium (Duoneb Neb) 1 ampule Q4HR WHILE AWAKE NEB NEB 01/06/17 08:00 01/08/17 11:52 Albuterol/ Ipratropium (Duoneb Neb) 1 ampule Q2HR NEB PRN NEB SOB/WHEEZING 01/05/17 20:15 01/06/17 00:34 Methylprednisolone Sodium Succinate (SoluMEDROL INJ) 40 mg Q6HR IV PUSH 01/06/17 00:00 01/08/17 05:51 Apixaban (Eliquis) 10 mg BID PO 01/08/17 09:00 01/14/17 08:59 01/08/17 08:46 Levofloxacin (Levaquin) 500 mg DAILY PO 01/08/17 09:00 01/12/17 08:59 01/08/17 08:46 Objective Remarks GENERAL: Elderly male upright in room in nad. SKIN: Warm and dry. HEAD: Normocephalic. EYES: No injection or drainage. NECK: Supple, trachea midline. CARDIOVASCULAR: Regular rate and rhythm RESPIRATORY: diminished at bases, anterior ravi clear. GASTROINTESTINAL: Abdomen soft, non-tender, nondistended. EXTREMITIES: No cyanosis NEUROLOGICAL: awake and alert, normal speech. moving all extremities. Assessment/Plan Problem List: (1) Lung cancer ICD Codes: C34.90 - Malignant neoplasm of unspecified part of unspecified bronchus or lung Plan: --Newly diagnosed lung cancer. --patient stated he was diagnosed with lung cancer when he was admitted to [facility] last month. --he had a lung biopsy. --The patient states he was treated with radiation and was supposed to follow up with his oncologist; however, he is not able to provide the name of the oncologist or any details. --CT chest showed a 1.8 cm right upper lobe spiculated mass +mediastinal and right hilar adenopathy, +small bilateral pleural effusions. ++numerous sclerotic metastatic bone lesions noted. --will need palliative chemotherapy if he wants any treatment. --recommend outpatient PET/CT scan for further evaluation. can follow up with his oncologist after discharge for treatment. --No oncologic intervention planned during this hospital stay (2) Pulmonary embolism ICD Codes: I26.99 - Other pulmonary embolism without acute cor pulmonale Plan: --on Eliquis --Pulmonary embolism noted on CTA --has a small right lower lobe pulmonary embolism. states that he was told he had blood clot in the lung when he was at [facility]. He was given blood thinner which sounds like Xarelto. Assessment 61y/o male with newly diagnosed lung cancer. h/o Pulmonary embolism. recent diagnosis of lung cancer. Lung biopsy. Plan 1. follow up with his medical oncologist once discharged 2. continue NOAC (Eliquis) Attending Statement The exam, history, and the medical decision-making described in the above note were completed with the assistance of the mid-level provider. I reviewed and agree with the findings presented. I attest that I had a [id number] encounter with the patient on the same day, and personally performed and documented my assessment and findings in the medical record. No CP/SOB. No bleeding reported. Eager to go home. F/u oncology clinic once d/c to continue treatment for his lung cancer. Unique Escobedo Jan 08, 2017 12:13 Franklin Espino MD Jan 08, 2017 15:52
--- NOTE | 2017-01-08 13:42 | HHI.PR ---
Subjective Remarks Follow up for respiratory distress, PE, lung cancer. Patient is doing well. He was on room air this morning. However, prior to discharge, a walk test indicated need for home O2. No fever, chills. Objective Vitals Vital Signs Date Time Temp Pulse Resp B/P (MAP) Pulse Ox O2 Delivery O2 Flow Rate FiO2 01/08/17 12:00 98.3 86 17 128/77 (94) 94 01/08/17 11:53 2.00 01/08/17 08:35 Room Air 01/08/17 08:03 95 Nasal Cannula 3.00 01/08/17 08:00 98.2 79 17 120/81 (94) 92 01/08/17 04:59 98.3 86 16 103/72 (82) 99 01/08/17 01:04 81 01/08/17 00:49 95 Room Air 01/08/17 00:30 97.4 82 16 124/89 (101) 95 01/07/17 21:32 97.9 94 19 130/85 (100) 95 01/07/17 16:00 98.6 91 18 140/94 (109) 93 01/07/17 15:29 94 Nasal Cannula 3.00 I/O 01/07/17 01/07/17 01/07/17 01/08/17 01/08/17 01/08/17 07:00 15:00 23:00 07:00 15:00 23:00 Intake Total 710 ml 480 ml 550 ml Output Total 650 ml Balance 710 ml -170 ml 550 ml Intake Oral 360 ml 480 ml IV Total 350 ml 550 ml Output Urine Total 650 ml # Voids 2 2 # Bowel Movements 1 1 Result Diagram: 01/06/17 1011 01/08/17 0545 Imaging Last Impressions Chest X-Ray 01/05/17 1652 Signed Impressions: Service Date/Time: Thursday, January 05, 2017 17:31 - CONCLUSION: Minimal parenchymal changes left base Degenerative changes both shoulders. Bang Sandoval MD FACR CT Angiography 01/05/17 0000 Signed Impressions: Service Date/Time: Thursday, January 05, 2017 22:21 - CONCLUSION: 1. Small right lower lobe pulmonary embolus. 2. Site of reported primary bronchogenic carcinoma likely in the right upper lobe with an 18 mm spiculated soft tissue area is seen currently. There is mediastinal and right hilar lymphadenopathy as described above, pathologic by size criteria. 3. Small bilateral pleural effusions. 4. Coronary artery calcification. 5. Numerous sclerotic metastatic bone lesions. Dae Hair MD Objective Remarks GENERAL: Alert, NAD. SKIN: Warm and dry. HEAD: Normocephalic. EYES: No scleral icterus. No injection or drainage. NECK: Supple, trachea midline. No JVD or lymphadenopathy. CARDIOVASCULAR: Regular rate and rhythm without murmurs, gallops, or rubs. RESPIRATORY: Breath sounds equal bilaterally. No accessory muscle use. GASTROINTESTINAL: Abdomen soft, non-tender, nondistended. MUSCULOSKELETAL: No cyanosis, or edema. BACK: Nontender without obvious deformity. No CVA tenderness. Procedures None. A/P Problem List: (1) Respiratory distress ICD Code: R06.00 - Dyspnea, unspecified (2) Hypoxia ICD Code: R09.02 - Hypoxemia (3) Lung cancer ICD Code: C34.90 - Malignant neoplasm of unspecified part of unspecified bronchus or lung (4) Hypocalcemia ICD Code: E83.51 - Hypocalcemia (5) Hyponatremia ICD Code: E87.1 - Hypo-osmolality and hyponatremia (6) Rhabdomyolysis ICD Code: M62.82 - Rhabdomyolysis Assessment and Plan This is a 61-year-old male with an apparent recent PMH of Lung CA who is brought to the ER by patient's Brother secondary to SOB x2 days. He was diagnosed with Lung CA approximately one month ago at [facility], states he underwent lung biopsy and chemotherapy but cannot recall name of Oncologist. CT PE study shows right sided PE. - Acute respiratory failure hypoxia - Right Lower lobe Pulmonary embolism - Lung cancer - Continue supplemental O2 via NC. - Wean off O2 if possible. - We discontinued lovenox and started patient on Apixaban. - Oncology consulted. - Patient needs home O2. However, without insurance, it would be difficult to arrange it. Case management is aware of this issue. - Hyponatremia - Hypocalcemia - Na improved from 123 --> 131. - Possibly related to SIADH. - Ca was 7.7, replaced, improved to 8.4. Full code. Apixaban. Discharge: Difficult discharge due to home O2 requirement. If home O2 is arranged, patient can be discharged. Reji Monge DO Jan 08, 2017 1:42 pm
[2017-01-09] VITALS: BP 128/87; PULSE 89; RESP 18; TEMP 98.4; O2SAT 97
[2017-01-09] MEDS: methylPREDNISolone SOD SUCC 40 MG/1 ML VIAL IV PUSH SCH ×3 (00:03→12:30)
[2017-01-09 04:00] VITALS: BP 141/95; PULSE 81; RESP 18; TEMP 97.8; O2SAT 95
[2017-01-09 07:50] VITALS: O2SAT 92
[2017-01-09] MEDS: RESP: ALBUTEROL 2.5 MG/IPRATROPIUM 0.5 MG NEB (SCH) NEB ×2 (07:50→11:34)
[2017-01-09 08:00] VITALS: BP 142/96; PULSE 86; RESP 16; TEMP 97.8; O2SAT 92
[2017-01-09] MEDS: DOCUSATE SODIUM 50 MG/SENNA 8.6 MG TAB PO SCH (08:22)
[2017-01-09] MEDS: APIXABAN 5 MG TABLET PO SCH (08:23)
[2017-01-09] MEDS: ACETAMINOPHEN/HYDROcodone 325 MG/5 MG TAB PO PRN (08:23)
[2017-01-09] MEDS: LEVOFLOXACIN 500 MG TAB PO SCH (08:23)
[2017-01-09] MEDS: SODIUM CHLORIDE 0.9% FLUSH 10 ML FLUSH IV FLUSH SCH (08:23)
[2017-01-09 10:39] LABS: HEMATOCRIT 32.3 % (39.0-51.0); MEAN CELL VOLUME 86.2 FL (80.0-100.0); MEAN CORPUSCULAR HEMOGLOBIN 27.9 PG (27.0-34.0); MEAN CORPUSCULAR HGB CONC 32.4 % (32.0-36.0); PLATELET COUNT 263 TH/MM3 (150-450); RED BLOOD COUNT 3.75 MIL/MM3 (4.50-5.90); REVIEW FLAG FINAL; WHITE BLOOD COUNT 14.7 TH/MM3 (4.0-11.0)
[2017-01-09 10:40] VITALS: RESP 20; O2SAT 97
--- NOTE | 2017-01-09 11:24 | HHI.PR ---
Addendum to Inpatient Note Additional Information Patient has been on room air in his room and his O2 sat has been in the high 90s. I walked him this morning for a total of 6 minutes. At the beginning of his walk test, his room air O2 sat was 97%. After 6 minute walking, his O2 sat went down to 91%. He walked at a good speed and did not have any symptoms. He lives with his sister at a one story house. He is eager to go home. Reji Monge DO Jan 09, 2017 11:24 am
[2017-01-09] MEDS ORDERED: SYMB160A INH (11:25)
--- NOTE | 2017-01-09 11:30 | HHI.DS ---
Discharge Summary Admission Date Jan 05, 2017 at 8:04 pm Discharge Date: Jan 09, 2017 Admitting Diagnosis respiratory distress (1) Respiratory distress ICD Code: R06.00 - Dyspnea, unspecified (2) Hypoxia ICD Code: R09.02 - Hypoxemia (3) Lung cancer ICD Code: C34.90 - Malignant neoplasm of unspecified part of unspecified bronchus or lung (4) Hypocalcemia ICD Code: E83.51 - Hypocalcemia (5) Hyponatremia ICD Code: E87.1 - Hypo-osmolality and hyponatremia (6) Rhabdomyolysis ICD Code: M62.82 - Rhabdomyolysis Procedures None. Brief History - From Admission This is a 61-year-old male with an apparent recent PMH of Lung CA who is brought to the ER by patient's Brother secondary to SOB x2 days. History difficult to obtain from patient upon arrival secondary to significant respiratory distress. O2 sat 86% on RA. Placed on BIPAP w/ mild improvement. BP 123/84, HR 113, Afebrile. Currently O2 sat 95% on 3L NC. Patient able to provide a little more history at this time. States that he was diagnosed with Lung CA approximately one month ago at [facility], states he underwent lung biopsy and chemotherapy but cannot recall name of Oncologist. Records from currently pending. D/c'd approx 1wk ago and has been doing well up until 2 days ago. Denies productive cough or fever. Does report "swelling all over" which is now resolved. WBC 10.5, elevated neutrophil count. Na 123, Ca 7.7, CPK 462. Trop neg. BNP 114. INR 1.1. UA negative. CXR with minimal parenchymal changes left base. S/p Lasix IV in ER in addition to Solu-Medrol and DuoNeb w/ improvement. CBC/BMP: 01/09/17 0939 01/08/17 0545 Significant Findings Laboratory Tests Test 01/08/17 05:45 01/09/17 09:39 Creatinine 0.51 MG/DL (0.60-1.30) Calcium Level 7.9 MG/DL (8.5-10.1) Phosphorus Level 2.2 MG/DL (2.5-4.9) Sodium Level 135 MEQ/L (136-145) White Blood Count 14.7 TH/MM3 (4.0-11.0) Red Blood Count 3.75 MIL/MM3 (4.50-5.90) Hemoglobin 10.5 GM/DL (13.0-17.0) Hematocrit 32.3 % (39.0-51.0) PE at Discharge GENERAL: Alert, NAD. SKIN: Warm and dry. HEAD: Normocephalic. EYES: No scleral icterus. No injection or drainage. NECK: Supple, trachea midline. No JVD or lymphadenopathy. CARDIOVASCULAR: Regular rate and rhythm without murmurs, gallops, or rubs. RESPIRATORY: Breath sounds equal bilaterally. No accessory muscle use. GASTROINTESTINAL: Abdomen soft, non-tender, nondistended. MUSCULOSKELETAL: No cyanosis, or edema. BACK: Nontender without obvious deformity. No CVA tenderness. Pt update on day of discharge Patient is doing well. No CP, SOB, fever, chills. Patient has been on room air in his room and his O2 sat has been in the high 90s. I walked him this morning for a total of 6 minutes. At the beginning of his walk test, his room air O2 sat was 97%. After 6 minute walking, his O2 sat went down to 91%. He walked at a good speed and did not have any symptoms. He lives with his sister at a one story house. He is eager to go home. Hospital Course This is a 61-year-old male with an apparent recent PMH of Lung CA who is brought to the ER by patient's Brother secondary to SOB x2 days. He was diagnosed with Lung CA approximately one month ago at [facility], states he underwent lung biopsy and chemotherapy but cannot recall name of Oncologist. CT PE study shows right sided PE. - Acute respiratory failure hypoxia - Right Lower lobe Pulmonary embolism - Lung cancer - Patient is doing well on room air. At rest, O2 sat > 95%, on ambulation, lowest 91% today. - We discontinued lovenox and started patient on Apixaban. - Oncology consulted. - Patient's assistance provided (Blue card). Patient will need to follow up with Oncology. - Continue Abx, Albuterol Inh, Symbicort Inh at home. - Hyponatremia - Hypocalcemia - Na improved from 123 --> 131. - Possibly related to SIADH. - Ca was 7.7, replaced, improved to 8.4. Full code. Apixaban. Pt Condition on Discharge: Good Discharge Disposition: Discharge Home Discharge Time: > 30 minutes Discharge Instructions DIET: Follow Instructions for: As Tolerated, No Restrictions Activities you can perform: Regular-No Restrictions Follow up Referrals: Oncology/Hematology - 1 Week PCP Follow-up - 1 Week New Medications: Albuterol 18 GM Inh (Ventolin Hfa 18 GM Inh) 90 Mcg/Act Aer 1 PUFF INH Q4H PRN for SHORTNESS OF BREATH, #1 INHALER 0 Refills Budesonide-Formoterol Inh (Symbicort Inh) 160-4.5 Mcg/Act Aero 1 PUFF INH Q12HR, #1 INHALER 0 Refills Apixaban (Eliquis) 5 Mg Tab 5 MG PO BID for Blood Clot Prevention, #42 TAB Take 2 tablets (total 10mg) TWICE a day until 01/14/2017. THEN START 1 tablet TWICE a day starting 01/15/2017 Hydrocodone-Acetaminophen (Hydrocodone-Acetaminophen) 5-325 mg Tab 1 TAB PO Q6HR PRN for PAIN SCALE 4 TO 10, #20 TAB Levofloxacin (Levaquin) 500 Mg Tablet 500 MG PO DAILY for Infection, #4 TAB Reji Monge DO Jan 09, 2017 11:30
[2017-01-09 12:00] VITALS: BP 143/88; PULSE 98; RESP 16; TEMP 97.7; O2SAT 97
--- NOTE | 2017-01-09 12:33 | PD.ONC.PN ---
Subjective Subjective Remarks Afebrile overnight. Patient resting in room. Eager to go home. Waiting for home O2 to be set up. Objective Data Date Time Temp Pulse Resp B/P (MAP) Pulse Ox O2 Delivery O2 Flow Rate FiO2 01/09/17 10:41 97 Room Air 01/09/17 10:40 20 97 01/09/17 08:35 Room Air 01/09/17 08:00 97.8 86 16 142/96 (111) 92 01/09/17 07:50 92 21 01/09/17 04:00 97.8 81 18 141/95 (110) 95 01/09/17 00:00 98.4 89 18 128/87 (101) 97 01/08/17 20:00 98.2 101 18 136/90 (105) 97 01/08/17 19:47 91 21 01/08/17 16:00 98.1 87 18 136/80 (98) 93 Result Diagram: 01/09/17 0939 01/08/17 0545 Laboratory Results Laboratory Tests Test 01/09/17 09:39 White Blood Count 14.7 TH/MM3 Red Blood Count 3.75 MIL/MM3 Hemoglobin 10.5 GM/DL Hematocrit 32.3 % Mean Corpuscular Volume 86.2 FL Mean Corpuscular Hemoglobin 27.9 PG Mean Corpuscular Hemoglobin Concent 32.4 % Red Cell Distribution Width 16.0 % Platelet Count 263 TH/MM3 Mean Platelet Volume 7.1 FL Administered Medications Medications (Trade) Dose Ordered Sig/Shravan Route PRN Reason Start Time Stop Time Status Last Admin Dose Admin Sodium Chloride (NS Flush) 2 ml BID IV FLUSH 01/05/17 21:00 01/09/17 08:23 Acetaminophen/ Hydrocodone Bitart ([place]oulton 5-325 Mg) 1 tab Q4H PRN PO PAIN SCALE 3 TO 5 01/05/17 20:00 01/09/17 08:23 Morphine Sulfate (Morphine Inj) 2 mg Q3H PRN IV PUSH Pain 6-10 01/05/17 20:00 01/06/17 02:02 Senna/Docusate Sodium (Darcy-Colace) 1 tab BID PO 01/05/17 21:00 01/09/17 08:22 Albuterol/ Ipratropium (Duoneb Neb) 1 ampule Q4HR WHILE AWAKE NEB NEB 01/06/17 08:00 01/09/17 11:34 Albuterol/ Ipratropium (Duoneb Neb) 1 ampule Q2HR NEB PRN NEB SOB/WHEEZING 01/05/17 20:15 01/06/17 00:34 Methylprednisolone Sodium Succinate (SoluMEDROL INJ) 40 mg Q6HR IV PUSH 01/06/17 00:00 01/09/17 06:02 Apixaban (Eliquis) 10 mg BID PO 01/08/17 09:00 01/14/17 08:59 01/09/17 08:23 Levofloxacin (Levaquin) 500 mg DAILY PO 01/08/17 09:00 01/12/17 08:59 01/09/17 08:23 Objective Remarks GENERAL: Elderly male sitting up in room in NAD SKIN: Warm and dry. HEAD: Normocephalic. EYES: No injection or drainage. NECK: Supple, trachea midline. CARDIOVASCULAR: Regular rate and rhythm RESPIRATORY: diminished at bases, occasional rhonchi. On 2L O2 via NC GASTROINTESTINAL: Abdomen soft, non-tender, nondistended. EXTREMITIES: No cyanosis NEUROLOGICAL: aox3. normal speech. moving all extremities. Assessment/Plan Problem List: (1) Lung cancer ICD Codes: C34.90 - Malignant neoplasm of unspecified part of unspecified bronchus or lung Plan: --Newly diagnosed lung cancer. --patient stated he was diagnosed with lung cancer when he was admitted to [facility] last month. --he had a lung biopsy. --The patient states he was treated with radiation and was supposed to follow up with his oncologist; however, he is not able to provide the name of the oncologist or any details. --CT chest showed a 1.8 cm right upper lobe spiculated mass +mediastinal and right hilar adenopathy, +small bilateral pleural effusions. ++numerous sclerotic metastatic bone lesions noted. --will need palliative chemotherapy if he wants any treatment. --recommend outpatient PET/CT scan for further evaluation. can follow up with his oncologist after discharge for treatment. --No oncologic intervention planned during this hospital stay (2) Pulmonary embolism ICD Codes: I26.99 - Other pulmonary embolism without acute cor pulmonale Plan: --on Eliquis --Pulmonary embolism noted on CTA --has a small right lower lobe pulmonary embolism. states that he was told he had blood clot in the lung when he was at [facility]. He was given blood thinner which sounds like Xarelto. Assessment 61y/o male with newly diagnosed lung cancer. h/o Pulmonary embolism. recent diagnosis of lung cancer. Lung biopsy. Plan 1. follow up in clinic once discharged. fs faxed to new patient referrals. 2. continue Eliquis Attending Statement The exam, history, and the medical decision-making described in the above note were completed with the assistance of the mid-level provider. I reviewed and agree with the findings presented. I attest that I had a [id number] encounter with the patient on the same day, and personally performed and documented my assessment and findings in the medical record. Late entry. Feeling better. No CP. No bleeding. eager to go home. F/u with oncology after d/c. Problem Qualifiers (1) Lung cancer: Qualified Codes: C34.90 - Malignant neoplasm of unspecified part of unspecified bronchus or lung Unique Escobedo Jan 09, 2017 12:33 Franklin Espino MD Jan 09, 2017 19:30
== END 2017-01-09 15:17 | disposition home or self-care (01) | DRG 189 ==
LOC: NEPE 16:24 → NEDA 19:47 → OBSVTOIN 20:04 → N05B 22:48
PROVIDERS: ADMIT Hospitalist; ATTEND Hospitalist
PROC: 5A09357 Assistance with Respiratory Ventilation, Less than 24 Consecutive Hours, Continuous Positive Airway Pressure (ICD-10-PCS; principal; 2017-01-05)
DX: J96.01 Acute respiratory failure with hypoxia (principal); I26.99 Other pulmonary embolism without acute cor pulmonale; M62.82 Rhabdomyolysis; E87.1 Hypo-osmolality and hyponatremia; J90 Pleural effusion, not elsewhere classified; C79.51 Secondary malignant neoplasm of bone; C34.90 Malignant neoplasm of unspecified part of unspecified bronchus or lung; E83.51 Hypocalcemia; R59.0 Localized enlarged lymph nodes; Z87.891 Personal history of nicotine dependence
CPT/HCPCS: 51702; 71010; 71275; 80048; 80053; 81001; 82436; 82550; 82552; 82805; 83735; 83880; 83935; 84100; 84133; 84300; 84484; 85025; 85027; 85610; 85730; 93005; 94002; 94003; 94150; 94620; 94640; 94664; 96374; 96375; J0456; J0610; J0696; J1644; J1650; J1940; J2060; J2270; J2920; J2930; J7050; J7060; Q9967

== ENCOUNTER 2017-01-26 06:00 | Inpatient (IN) | payer OTHER ==
[~2017-01-26] VITALS: Ht 154.9 cm; Wt 43.0 kg
[~2017-01-26 06:00] MED LIST: APIX5TAB PO; HYDR-3516 PO; LEVA500T20 PO; SYMB160A INH; VENTAER INH
[2017-01-26] MEDS ORDERED: IOHEXOL 350 MG/ML 10 ML VIAL (for RAD DIAG) IVCONTRAST ONE (06:01)
[2017-01-26 06:09] VITALS: BP 148/60; PULSE 96; RESP 16; TEMP 97.8; O2SAT 96
[2017-01-26] MEDS ORDERED: SODIUM CHLOR 0.9% 1000 ML INJ 1,000 ML IV SCH (06:38)
[2017-01-26 06:40] VITALS: O2SAT 97
[2017-01-26] MEDS ORDERED: SODIUM CHLORIDE 0.9% FLUSH 10 ML FLUSH IV FLUSH PRN ×2 (06:45→11:15)
[2017-01-26] MEDS ORDERED: FAMOTIDINE 20 MG/2 ML VIAL IV PUSH ONE (06:45)
[2017-01-26] MEDS ORDERED: MORPHINE SULFATE 4 MG/ML INJ IV PUSH ONE (06:45)
[2017-01-26] MEDS ORDERED: ONDANSETRON HCL 4 MG/2 ML VIAL IVP ONE (06:45)
--- NOTE | 2017-01-26 06:50 | PD ---
HPI Chief Complaint: Abdominal Pain Time Seen by Provider: 06:32 Travel History International Travel<30 days: No Contact w/Intl Traveler<30days: No Traveled to known affect area: No History of Present Illness HPI The patient is a 61-year-old Tiny male who presents to the emergency department for abdominal pain. The patient states he developed abdominal pain last night approximately midnight, describes abdominal pain as diffuse, sharp, and associated with nausea, vomiting, 2 episodes of diarrhea. The patient states the diarrhea was loose, watery, without any visible blood. The patient denies any dysuria, frequency, or urgency. The patient denies any history of abdominal surgeries. He does note subjective fevers, chills, and sweats. The patient does have a history of recent lung carcinoma diagnosis and is followed by his oncologist, Dr. Arana, at [facility]. The patient states he has not started chemotherapy. The patient was also recently diagnosed with a pulmonary embolism was placed on Eliquis. The patient states he was taking his medications, however, ran out of his medications. He denies any acute shortness of breath or chest pain, does describe epigastric abdominal pain that radiates down to the pelvis. PFSH Past Medical History Hx Anticoagulant Therapy: Yes (last pill three days) Asthma: No Cancer: Yes (lung ) Cardiovascular Problems: No Chemotherapy: Yes COPD: No Diminished Hearing: No GERD: No Genitourinary: No Hiatal Hernia: No Kidney Stones: No Musculoskeletal: No Neurologic: No Reproductive: No Respiratory: Yes (stage 4 Lung cancer) Renal Failure: No Sleep Apnea: No Ulcer: No Tetanus Vaccination: < 5 Years Influenza Vaccination: No Past Surgical History Surgical History: No Previous Surgery Other Surgery: No Social History Alcohol Use: No Tobacco Use: No Substance Use: No Allergies-Medications (Allergen,Severity, Reaction): Coded Allergies: No Known Allergies (Unverified , 01/26/17) Reported Meds & Prescriptions Reported Meds & Active Scripts Active Symbicort Inh (Budesonide/Formoterol Fumarate) 160-4.5 Mcg/Act Aero 1 Puff INH Q12HR Ventolin Hfa 18 GM Inh (Albuterol Sulfate) 90 Mcg/Act Aer 1 Puff INH Q4H PRN Review of Systems Except as stated in HPI: all other systems reviewed are Neg General / Constitutional: Positive: Fever, Chills HENT: No: Lightheadedness Cardiovascular: No: Chest Pain or Discomfort Respiratory: No: Shortness of Breath Gastrointestinal: Positive: Nausea, Vomiting, Diarrhea, Abdominal Pain Genitourinary: No: Dysuria Physical Exam Narrative GENERAL: Awake, alert, pleasant 61-year-old male who appears his stated age and is in no acute respiratory distress. SKIN: Focused skin assessment warm/dry. HEAD: Atraumatic. Normocephalic. EYES: No injection or drainage. ENT: No nasal bleeding or discharge. Mucous membranes pink and moist. NECK: Trachea midline. No JVD. CARDIOVASCULAR: Regular rate and rhythm. No murmur appreciated. Heart rate in the 90s. Barrel-shaped chest noted. RESPIRATORY: No accessory muscle use. Clear to auscultation. Breath sounds equal bilaterally. GASTROINTESTINAL: Abdomen soft, mild periumbilical tenderness, but no guarding or rigidity. MUSCULOSKELETAL: No obvious deformities. No clubbing. No cyanosis. No edema. NEUROLOGICAL: Awake and alert. No obvious cranial nerve deficits. Motor grossly within normal limits. Normal speech. PSYCHIATRIC: Appropriate mood and affect; insight and judgment normal. Data Data Last Documented VS Vital Signs Date Time Temp Pulse Resp B/P (MAP) Pulse Ox O2 Delivery O2 Flow Rate FiO2 01/26/17 11:17 97.9 93 19 125/83 (97) 96 Room Air Orders Orders Complete Blood Count With Diff (01/26/17 06:38) Comprehensive Metabolic Panel (01/26/17 06:38) Lipase (01/26/17 06:38) Lactic Acid (01/26/17 06:38) Urinalysis - C+S If Indicated (01/26/17 06:38) Ct Abd/Pel W Iv Contrast(Rout) (01/26/17 06:38) Iv Access Insert/Monitor (01/26/17 06:38) Ecg Monitoring (01/26/17 06:38) Oximetry (01/26/17 06:38) Morphine Inj (Morphine Inj) (01/26/17 06:45) Ondansetron Inj (Zofran Inj) (01/26/17 06:45) Sodium Chlor 0.9% 1000 Ml Inj (Ns 1000 M (01/26/17 06:38) Sodium Chloride 0.9% Flush (Ns Flush) (01/26/17 06:45) Famotidine Inj (Pepcid Inj) (01/26/17 06:45) Ct Thorax/ Chest W Iv Contrast (01/26/17 ) Iohexol 350 Inj (Omnipaque 350 Inj) (01/26/17 06:01) Sodium Chlor 0.9% 1000 Ml Inj (Ns 1000 M (01/26/17 10:00) Admit To Inpatient (01/26/17 ) Vital Signs (Adult) Q4H (01/26/17 11:08) Activity Oob With Assistance (01/26/17 11:08) Diet Regular Basic (01/26/17 Lunch) Sodium Chlor 0.9% 1000 Ml Inj (Ns 1000 M (01/26/17 12:00) Sodium Chloride 0.9% Flush (Ns Flush) (01/26/17 11:15) Sodium Chloride 0.9% Flush (Ns Flush) (01/26/17 21:00) Acetaminophen (Tylenol) (01/26/17 11:15) Temazepam (Restoril) (01/26/17 11:15) Basic Metabolic Panel (Bmp) (01/27/17 06:00) Complete Blood Count With Diff (01/27/17 06:00) Electrocardiogram (01/26/17 11:08) Electrocardiogram (01/26/17 17:08) Resp Oxygen Sarkis C Titrat 1-4 L (01/26/17 ) Pt Request For Service (01/26/17 11:08) Case Management Consult (01/26/17 11:08) Enoxaparin Inj (Lovenox Inj) (01/26/17 13:00) Scd Bilateral/Knee High VIKTORIA.BID (01/26/17 11:08) Clarence Bilateral/Knee High VIKTORIA.QSHIFT (01/26/17 11:08) Naloxone Inj (Narcan Inj) (01/26/17 11:15) Docusate Sodium-Senna (Darcy-Colace) (01/26/17 21:00) Magnesium Hydroxide Liq (Milk Of Magnesi (01/26/17 11:15) Sennosides (Senokot) (01/26/17 11:15) Bisacodyl Supp (Dulcolax Supp) (01/26/17 11:15) Lactulose Liq (Lactulose Liq) (01/26/17 11:15) Inpatient Certification (01/26/17 ) Consult Medical Oncology (01/26/17 ) Budeson-Formot 160-4.5 Mg Inh (Symbicort (01/26/17 21:00) Albuterol-Ipratropium Neb (Duoneb Neb) (01/26/17 12:00) (Hub Use Only)Inp Phy Cons/Ref (01/26/17 ) Admit Order (Ed Use Only) (01/26/17 11:28) Labs Laboratory Tests Test 01/26/17 06:45 White Blood Count 11.8 TH/MM3 Red Blood Count 3.30 MIL/MM3 Hemoglobin 8.5 GM/DL Hematocrit 26.5 % Mean Corpuscular Volume 80.3 FL Mean Corpuscular Hemoglobin 25.7 PG Mean Corpuscular Hemoglobin Concent 32.0 % Red Cell Distribution Width 19.2 % Platelet Count 492 TH/MM3 Mean Platelet Volume 7.1 FL Neutrophils (%) (Auto) 70.6 % Lymphocytes (%) (Auto) 8.0 % Monocytes (%) (Auto) 9.6 % Eosinophils (%) (Auto) 11.1 % Basophils (%) (Auto) 0.7 % Neutrophils # (Auto) 8.3 TH/MM3 Lymphocytes # (Auto) 0.9 TH/MM3 Monocytes # (Auto) 1.1 TH/MM3 Eosinophils # (Auto) 1.3 TH/MM3 Basophils # (Auto) 0.1 TH/MM3 CBC Comment DIFF FINAL Differential Comment Blood Urea Nitrogen 8 MG/DL Creatinine 0.59 MG/DL Random Glucose 77 MG/DL Total Protein 6.5 GM/DL Albumin 2.6 GM/DL Calcium Level 7.8 MG/DL Alkaline Phosphatase 88 U/L Aspartate Amino Transf (AST/SGOT) 28 U/L Alanine Aminotransferase (ALT/SGPT) 23 U/L Total Bilirubin 0.8 MG/DL Sodium Level 134 MEQ/L Potassium Level 3.9 MEQ/L Chloride Level 98 MEQ/L Carbon Dioxide Level 27.8 MEQ/L Anion Gap 8 MEQ/L Estimat Glomerular Filtration Rate 170 ML/MIN Lactic Acid Level 1.6 mmol/L Lipase 57 U/L MDM Medical Decision Making Medical Screen Exam Complete: Yes Emergency Medical Condition: Yes Medical Record Reviewed: Yes Differential Diagnosis Differential diagnosis includes gastritis, pancreatitis, peptic ulcer disease, gastroenteritis, colitis, metastasis, dehydration, electrolyte abnormality. Narrative Course IV was established, labs are drawn and sent, and the patient was placed on cardiac telemetry monitoring and continuous pulse oximetry monitoring. I reviewed the patient's EMR including his previous hospitalization for chest pain where he had a CTA performed which revealed a spiculated right upper lobe mass as well as a right lower lobe pulmonary embolism. CT of the abdomen and pelvis was performed. The patient was administered morphine, Zofran, Zantac, and IV fluids. The patient was signed out to the oncoming physician at 7 AM. Diagnosis Primary Impression: Abdominal pain Qualified Codes: R10.84 - Generalized abdominal pain Condition: Stable Michael Sena MD Jan 26, 2017 06:50
[2017-01-26 07:00] LABS: AUTOMATED NEUTROPHIL # 8.3 TH/MM3 (1.8-7.7); BASOPHIL # 0.1 TH/MM3 (0-0.2); BASOPHIL % 0.7 % (0.0-2.0); EOSINOPHIL # 1.3 TH/MM3 (0-0.4); EOSINOPHIL % 11.1 % (0.0-4.0); HEMATOCRIT 26.5 % (39.0-51.0); HEMO FLAGS DIFF FINAL; LYMPHOCYTE # 0.9 TH/MM3 (1.0-4.8); MEAN CELL VOLUME 80.3 FL (80.0-100.0); MEAN CORPUSCULAR HEMOGLOBIN 25.7 PG (27.0-34.0); MONO % 9.6 % (0.0-8.0); NEUT % 70.6 % (16.0-70.0); PLATELET COUNT 492 TH/MM3 (150-450); RED CELL DISTRIBUTION WIDTH 19.2 % (11.6-17.2); WHITE BLOOD COUNT 11.8 TH/MM3 (4.0-11.0)
[2017-01-26 07:31] LABS: ALT (GPT) 23 U/L (12-78); ANION GAP 8 MEQ/L (5-15); AST (GOT) 28 U/L (15-37); BICARBONATE 27.8 MEQ/L (21.0-32.0); BLOOD UREA NITROGEN 8 MG/DL (7-18); CHLORIDE 98 MEQ/L (98-107); GLOMERULAR FILTRATION RATE 170 ML/MIN (>89); POTASSIUM 3.9 MEQ/L (3.5-5.1); SODIUM (NA) 134 MEQ/L (136-145)
[2017-01-26 07:33] LABS: ALKALINE PHOSPHATASE 88 U/L (45-117); TOTAL BILIRUBIN ADULT 0.8 MG/DL (0.2-1.0)
--- NOTE | 2017-01-26 08:32 | RADRPT ---
EXAM DATE/TIME: 01/26/2017 07:59 [facility] COMPARISON: No previous studies available for comparison. INDICATIONS : Abdominal pain, history of lung cancer; evaluate for metastatic disease. IV CONTRAST: 92 cc Omnipaque 350 (iohexol) IV ; Cumulative dose for multiple exams. ORAL CONTRAST: No oral contrast ingested. RADIATION DOSE: 7.35 CTDIvol (mGy) ; Combined studies - Thorax/Abdomen/Pelvis MEDICAL HISTORY : Carcinoma, lung. SURGICAL HISTORY : None. ENCOUNTER: Initial ACUITY: 1 day PAIN SCALE: 5/10 LOCATION: Bilateral lower quadrant TECHNIQUE: Volumetric scanning of the abdomen and pelvis was performed. Using automated exposure control and ad justment of the mA and/or kV according to patient size, radiation dose was kept as low as reasonably achievable to obtain optimal diagnostic quality images. DICOM format image data is available electro nically for review and comparison. FINDINGS: LOWER LUNGS: Left pleural effusion. Distal para-aortic posterior mediastinal adenopathy.. LIVER: Homogeneous density with multiple low densities. There is no dilation of the biliary tree. No calci fied gallstones. SPLEEN: Normal size without lesion. PANCREAS: Within normal limits. KIDNEYS: Normal in size and shape. There is no mass, stone or hydronephrosis. ADRENAL GLANDS: Bilateral adrenal masses measuring 4.3 x 3.5 cm and the right and 3.7 x 3.2 cm the left. VASCULAR: There is no aortic aneurysm. BOWEL/MESENTERY: The stomach, small bowel, and colon demonstrate no acute abnormality. There is no free intraperitone al air or fluid. There is a perirectal/presacral cystic fluid collection with peripheral enhancement measuring 3.4 x 5.9 cm of uncertain etiology. ABDOMINAL WALL: Within normal limits. RETROPERITONEUM: There is no retrocrural and retroperitoneal lymphadenopathy. BLADDER: No wall thickening or mass. REPRODUCTIVE: Within normal limits. INGUINAL: There is no someone adenopathy in the left pelvic region anteriorly which is intimately associated wi th bowel loops. There appears to be one slightly more larger more medially with central necrosis. No enlarged inguinal adenopathy. MUSCULOSKELETAL: Sclerotic bony metastasis within the thoracolumbar spine. CONCLUSION: 1. Multiple metastatic lesions including both adrenal glands 2. Para-aortic/retrocrural and retroperitoneal adenopathy. 3. There is some prominent adenopathy in the left anterior pelvis which is intimately associated with bowel loops. 4. Multiple low-density liver lesions of uncertain etiology but metastatic disease cannot be excluded . 5. There is fluid in the pelvis could be related to free fluid versus loculated fluid collection. 6. Sclerotic bony metastasis. Tmiothy Lang MD on January 26, 2017 at 8:20 Board Certified Radiologist. This report was verified electronically.
--- NOTE | 2017-01-26 08:52 | RADRPT ---
EXAM DATE/TIME: 01/26/2017 07:59 [facility] COMPARISON: No previous studies available for comparison. INDICATIONS : Chest pain, history of lung cancer; evaluate for metastatic disease. IV CONTRAST: 92 cc Omnipaque 350 (iohexol) IV ; Cumulative dose for multiple exams. RADIATION DOSE: 7.35 CTDIvol (mGy) ; Combined studies - Thorax/Abdomen/Pelvis MEDICAL HISTORY : Carcinoma, lung. SURGICAL HISTORY : None. ENCOUNTER: Initial ACUITY: 1 day PAIN SCALE: 4/10 LOCATION: Bilateral upper chest TECHNIQUE: Volumetric scanning of the chest was performed. Using automated exposure control and adjustment of t he mA and/or kV according to patient size, radiation dose was kept as low as reasonably achievable to obtain optimal diagnostic quality images. DICOM format image data is available electronically for review and comparison. Follow-up recommendations for detected pulmonary nodules are based at a minimum on nodule size and pa tient risk factors according to Fleischner Society Guidelines. FINDINGS: LUNGS: The mass in the right upper lobe is again seen measuring 1.8 x 0.7 cm. There is paraseptal and centri lobular emphysema. PLEURA: There is no pleural thickening or pleural effusion on the right. Small left pleural effusion. MEDIASTINUM: Prominence hilar and mediastinal adenopathy again seen. There does appear to be some thrombus in the superior vena cava. Prominent para-aortic lymphadenopathy. AXILLAE: Within normal limits. No lymphadenopathy. SKELETAL: Sclerotic bony metastasis. MISCELLANEOUS: The visualized upper abdominal organs demonstrate large adrenal masses and liver low densities.. CONCLUSION: 1. Spiculated density right upper lobe again seen and unchanged. 2. Metastatic adenopathy throughout the hilar or mediastinum including periaortic adenopathy. 3. Bilateral metastatic adrenal masses. Multiple low-densities in the liver. 4. Sclerotic bony metastasis. 5. There does appear to be small amount of thrombus in the superior vena cava which was seen on previ ous study. Timothy Lang MD on January 26, 2017 at 8:36 Board Certified Radiologist. This report was verified electronically.
--- NOTE | 2017-01-26 09:03 | PD ---
Physical Exam Date Seen by Provider: Jan 26, 2017 Time Seen by Provider: 09:00 Narrative 61-year-old male came to the emergency room with history of abdominal pain. Patient was seen by the previous ER physician and please refer to his history and physical for further details. Patient was recently diagnosed with a lung mass. Sign out was to follow-up on the blood test result and a CAT scan of the abdomen that was ordered. I went and reassessed the patient. He is extremely barrel chested but otherwise emaciated. He was pointing to his upper abdomen and epigastric area included a CT scan of his chest as well. The CT scan report just came back and patient has extensive past disease into his abdomen. There is mass in his lung 2. I would like to admit this patient at this point given the extreme cancer situation. Awaiting for the hospitalist to call back. Data Data Last Documented VS Vital Signs Date Time Temp Pulse Resp B/P (MAP) Pulse Ox O2 Delivery O2 Flow Rate FiO2 01/26/17 11:17 97.9 93 19 125/83 (97) 96 Room Air Orders Orders Complete Blood Count With Diff (01/26/17 06:38) Comprehensive Metabolic Panel (01/26/17 06:38) Lipase (01/26/17 06:38) Lactic Acid (01/26/17 06:38) Urinalysis - C+S If Indicated (01/26/17 06:38) Ct Abd/Pel W Iv Contrast(Rout) (01/26/17 06:38) Iv Access Insert/Monitor (01/26/17 06:38) Ecg Monitoring (01/26/17 06:38) Oximetry (01/26/17 06:38) Morphine Inj (Morphine Inj) (01/26/17 06:45) Ondansetron Inj (Zofran Inj) (01/26/17 06:45) Sodium Chlor 0.9% 1000 Ml Inj (Ns 1000 M (01/26/17 06:38) Sodium Chloride 0.9% Flush (Ns Flush) (01/26/17 06:45) Famotidine Inj (Pepcid Inj) (01/26/17 06:45) Ct Thorax/ Chest W Iv Contrast (01/26/17 ) Iohexol 350 Inj (Omnipaque 350 Inj) (01/26/17 06:01) Sodium Chlor 0.9% 1000 Ml Inj (Ns 1000 M (01/26/17 10:00) Admit To Inpatient (01/26/17 ) Vital Signs (Adult) Q4H (01/26/17 11:08) Activity Oob With Assistance (01/26/17 11:08) Sodium Chlor 0.9% 1000 Ml Inj (Ns 1000 M (01/26/17 12:00) Sodium Chloride 0.9% Flush (Ns Flush) (01/26/17 11:15) Sodium Chloride 0.9% Flush (Ns Flush) (01/26/17 21:00) Acetaminophen (Tylenol) (01/26/17 11:15) Temazepam (Restoril) (01/26/17 11:15) Basic Metabolic Panel (Bmp) (01/27/17 06:00) Complete Blood Count With Diff (01/27/17 06:00) Electrocardiogram (01/26/17 11:08) Electrocardiogram (01/26/17 17:08) Resp Oxygen Sarkis C Titrat 1-4 L (01/26/17 ) Pt Request For Service (01/26/17 11:08) Case Management Consult (01/26/17 11:08) Enoxaparin Inj (Lovenox Inj) (01/26/17 13:00) Scd Bilateral/Knee High VIKTORIA.BID (01/26/17 11:08) Clarence Bilateral/Knee High VIKTORIA.QSHIFT (01/26/17 11:08) Naloxone Inj (Narcan Inj) (01/26/17 11:15) Docusate Sodium-Senna (Darcy-Colace) (01/26/17 21:00) Magnesium Hydroxide Liq (Milk Of Magnesi (01/26/17 11:15) Sennosides (Senokot) (01/26/17 11:15) Bisacodyl Supp (Dulcolax Supp) (01/26/17 11:15) Lactulose Liq (Lactulose Liq) (01/26/17 11:15) Inpatient Certification (01/26/17 ) Consult Medical Oncology (01/26/17 ) Budeson-Formot 160-4.5 Mg Inh (Symbicort (01/26/17 21:00) Albuterol-Ipratropium Neb (Duoneb Neb) (01/26/17 12:00) (Hub Use Only)Inp Phy Cons/Ref (01/26/17 ) Admit Order (Ed Use Only) (01/26/17 11:28) Labs Laboratory Tests Test 01/26/17 06:45 White Blood Count 11.8 TH/MM3 Red Blood Count 3.30 MIL/MM3 Hemoglobin 8.5 GM/DL Hematocrit 26.5 % Mean Corpuscular Volume 80.3 FL Mean Corpuscular Hemoglobin 25.7 PG Mean Corpuscular Hemoglobin Concent 32.0 % Red Cell Distribution Width 19.2 % Platelet Count 492 TH/MM3 Mean Platelet Volume 7.1 FL Neutrophils (%) (Auto) 70.6 % Lymphocytes (%) (Auto) 8.0 % Monocytes (%) (Auto) 9.6 % Eosinophils (%) (Auto) 11.1 % Basophils (%) (Auto) 0.7 % Neutrophils # (Auto) 8.3 TH/MM3 Lymphocytes # (Auto) 0.9 TH/MM3 Monocytes # (Auto) 1.1 TH/MM3 Eosinophils # (Auto) 1.3 TH/MM3 Basophils # (Auto) 0.1 TH/MM3 CBC Comment DIFF FINAL Differential Comment Blood Urea Nitrogen 8 MG/DL Creatinine 0.59 MG/DL Random Glucose 77 MG/DL Total Protein 6.5 GM/DL Albumin 2.6 GM/DL Calcium Level 7.8 MG/DL Alkaline Phosphatase 88 U/L Aspartate Amino Transf (AST/SGOT) 28 U/L Alanine Aminotransferase (ALT/SGPT) 23 U/L Total Bilirubin 0.8 MG/DL Sodium Level 134 MEQ/L Potassium Level 3.9 MEQ/L Chloride Level 98 MEQ/L Carbon Dioxide Level 27.8 MEQ/L Anion Gap 8 MEQ/L Estimat Glomerular Filtration Rate 170 ML/MIN Lactic Acid Level 1.6 mmol/L Iron Level 16 MCG/DL Total Iron Binding Capacity 315 MCG/DL Percent Iron Saturation 5.1 % Ferritin 120 NG/ML Lipase 57 U/L MDM Supervised Visit with CONY: No Narrative Course 10:01 AM case was discussed with Dr. Ledesma who will follow-up on the patient when patient is admitted and consult. Still waiting for the hospitalist to call back for admission. Diagnosis Primary Impression: Abdominal pain Qualified Codes: R10.84 - Generalized abdominal pain Additional Impressions: Metastatic cancer Metastatic cancer to intra-abdominal lymph nodes Lung cancer Qualified Codes: C34.11 - Malignant neoplasm of upper lobe, right bronchus or lung Admitting Information Admitting Physician Requests: it Leif Moore MD Jan 26, 2017 09:03
[2017-01-26] MEDS ORDERED: SODIUM CHLOR 0.9% 1000 ML INJ 1,000 ML IV ONE (10:00)
[2017-01-26] MEDS ORDERED: LACTULOSE SYRUP 20 GM/30 ML CUP PO PRN (11:15)
[2017-01-26] MEDS ORDERED: MAGNESIUM HYDROXIDE SUSP 30 ML CUP PO PRN (11:15)
[2017-01-26] MEDS ORDERED: BISACODYL 10 MG SUPP RECTAL PRN (11:15)
[2017-01-26] MEDS ORDERED: ACETAMINOPHEN 325 MG TAB PO PRN (11:15)
[2017-01-26] MEDS ORDERED: SENNOSIDES 8.6 MG TAB PO PRN (11:15)
[2017-01-26] MEDS ORDERED: NALOXONE HCL 0.4 MG/ML AMP IV PUSH PRN ×2 (11:15→16:45)
[2017-01-26 11:17] VITALS: BP 125/83; PULSE 93; RESP 19; TEMP 97.9; O2SAT 96
[2017-01-26] MEDS: RESP: ALBUTEROL 2.5 MG/IPRATROPIUM 0.5 MG NEB (SCH) NEB ×4 (12:00→19:07)
[2017-01-26] MEDS ORDERED: ENOXAPARIN SODIUM 40 MG/0.4 ML SYRINGE SQ SCH (13:00)
[2017-01-26] MEDS: SODIUM CHLOR 0.9% 1000 ML INJ 1,000 ML IV SCH ×2 (13:07→21:44)
[2017-01-26 14:34] VITALS: BP 114/67; PULSE 68; RESP 18; O2SAT 94
[2017-01-26 16:00] VITALS: BP 123/77; PULSE 95; RESP 20; TEMP 98.4; O2SAT 93
--- NOTE | 2017-01-26 16:12 | HHI.HP ---
[facility] No Primary Care Physician Admission Diagnosis widespread metastatic disease, abdominal pain Diagnoses: (1) Metastatic cancer Diagnosis: Principal Chief Complaint: Lower abdominal pain. Travel History International Travel<30 Days: No Contact w/Intl Traveler <30 Da: No Traveled to Known Affected Are: No History of Present Illness Written by Moustapha Lopez PA-C acting as scribe for Dr. Moreno Mata on 01/26/17 at 15:59. Mr. Zeng is 61 years old, with previous history of lung cancer. He was recently admitted to [facility] on 01/05/17 for respiratory distress, hypoxia, lung cancer, hyponatremia, hypo-calcium via, and rhabdomyolysis. Mr. Zeng said he began experiencing abdominal pain, nausea and vomiting at 1 AM this morning; since that time he stated he experienced 5-10 bouts of vomiting. As he was unable to get his condition under control he came to [facility] for evaluation and management of his condition. Imaging obtained while patient was in the emergency department indicated metastatic cancer having spread to both adrenal glands, para-aortic retroperitoneal areas evidenced adenopathy, adenopathy of left anterior pelvis and bowel loops, liver, sclerotic bony metastasis. Labs indicated that patient's normocytic anemia had worsened. At time of interview, Mr. Zeng was encountered in his hospital room laying a bed and reported having abdominal pain, nausea, feeling cold/chills, having a cough, and having occasional wheezing. He spoke of having 2-3 bouts of bloodless diarrhea as well as having decreased appetite with weight loss. He stated that he has been using a walker in order to ambulate. Mr. Zeng also reported having insomnia in which she may sleep perhaps only 2 hours at a time and may sleep a total of 6 hours per 24. Review of Systems Constitutional: COMPLAINS OF: Chills, Change in appetite Respiratory: COMPLAINS OF: Cough, Wheezing Gastrointestinal: COMPLAINS OF: Abdominal pain, Diarrhea, Nausea, Vomiting Except as stated in HPI: all other systems reviewed are Neg Past Family Social History Past Medical History Lung cancer Insomnia Respiratory distress with hypoxia Hyponatremia Hypocalcemia Rhabdomyolysis Past Surgical History Patient denied past surgical history. Reported Medications Reported Meds & Active Scripts Active Symbicort Inh (Budesonide/Formoterol Fumarate) 160-4.5 Mcg/Act Aero 1 Puff INH Q12HR Ventolin Hfa 18 GM Inh (Albuterol Sulfate) 90 Mcg/Act Aer 1 Puff INH Q4H PRN Allergies: Coded Allergies: No Known Allergies (Unverified , 01/26/17) Active Ordered Medications Current Medications Medications (Trade) Dose Ordered Sig/Shravan Route Start Time Stop Time Status Last Admin Sodium Chloride 1,000 ml @ 100 mls/hr Q10H IV 01/26/17 12:00 01/26/17 13:07 (NS Flush) 2 ml UNSCH PRN IV FLUSH 01/26/17 11:15 (NS Flush) 2 ml BID IV FLUSH 01/26/17 21:00 (Tylenol) 650 mg Q4H PRN PO 01/26/17 11:15 (Restoril) 15 mg HS PRN PO 01/26/17 11:15 (Lovenox Inj) 40 mg Q24H SQ 01/26/17 13:00 01/26/17 13:07 (Narcan Inj) 0.4 mg UNSCH PRN IV PUSH 01/26/17 11:15 (Darcy-Colace) 1 tab BID PO 01/26/17 21:00 (Milk Of Magnesia Liq) 30 ml Q12H PRN PO 01/26/17 11:15 (Senokot) 17.2 mg Q12H PRN PO 01/26/17 11:15 (Dulcolax Supp) 10 mg DAILY PRN RECTAL 01/26/17 11:15 (Lactulose Liq) 30 ml DAILY PRN PO 01/26/17 11:15 (Symbicort 160-4.5 Inh) 1 puff Q12HR INH 01/26/17 21:00 (Duoneb Neb) 1 ampule Q4HR WHILE AWAKE NEB NEB 01/26/17 12:00 01/26/17 15:36 Family History Patient has negative family history for diabetes and coronary artery disease. Social History Patient denied alcohol use. Patient has positive history of tobacco use and reportedly quit approximately 2 months ago; use and frequency were not disclosed. Positive history of marijuana usage. Physical Exam Vital Signs Vital Signs Date Time Temp Pulse Resp B/P (MAP) Pulse Ox O2 Delivery O2 Flow Rate FiO2 01/26/17 14:50 01/26/17 14:34 68 18 114/67 (83) 94 Room Air 01/26/17 11:17 97.9 93 19 125/83 (97) 96 Room Air 01/26/17 06:40 97 01/26/17 06:09 97.8 96 16 148/60 (89) 96 Room Air Physical Exam GENERAL: This is a cachectic appearing, evidencing protein malnutrition patient , in mild distress. SKIN: No rashes, ecchymoses or lesions. Cool and dry. No signs of dehydration. HEAD: Atraumatic. Normocephalic. No temporal or scalp tenderness. EYES: Pupils equal round and reactive. Extraocular motions intact. No scleral icterus. No injection or drainage. ENT: Nose without bleeding or purulent drainage. Airway patent. NECK: Trachea midline. No lymphadenopathy. Supple and nontender. CARDIOVASCULAR: Regular rate and rhythm without murmurs, gallops, or rubs. RESPIRATORY: Clear to auscultation. Breath sounds equal bilaterally with bibasilar crackles present.. No wheezes or rhonchi. GASTROINTESTINAL: Abdomen was generally soft, non-tender, nondistended. However left upper quadrant was firm. No hepato-splenomegaly or guarding. MUSCULOSKELETAL: Extremities without clubbing, cyanosis, or edema. NEUROLOGICAL: Awake and alert. Cranial nerves II through XII intact. Motor and sensory grossly within normal limits. Five out of 5 muscle strength in all muscle groups. Normal speech. Laboratory Laboratory Tests Test 01/26/17 06:45 White Blood Count 11.8 Red Blood Count 3.30 Hemoglobin 8.5 Hematocrit 26.5 Mean Corpuscular Volume 80.3 Mean Corpuscular Hemoglobin 25.7 Mean Corpuscular Hemoglobin Concent 32.0 Red Cell Distribution Width 19.2 Platelet Count 492 Mean Platelet Volume 7.1 Neutrophils (%) (Auto) 70.6 Lymphocytes (%) (Auto) 8.0 Monocytes (%) (Auto) 9.6 Eosinophils (%) (Auto) 11.1 Basophils (%) (Auto) 0.7 Neutrophils # (Auto) 8.3 Lymphocytes # (Auto) 0.9 Monocytes # (Auto) 1.1 Eosinophils # (Auto) 1.3 Basophils # (Auto) 0.1 CBC Comment DIFF FINAL Differential Comment Blood Urea Nitrogen 8 Creatinine 0.59 Random Glucose 77 Total Protein 6.5 Albumin 2.6 Calcium Level 7.8 Alkaline Phosphatase 88 Aspartate Amino Transf (AST/SGOT) 28 Alanine Aminotransferase (ALT/SGPT) 23 Total Bilirubin 0.8 Sodium Level 134 Potassium Level 3.9 Chloride Level 98 Carbon Dioxide Level 27.8 Anion Gap 8 Estimat Glomerular Filtration Rate 170 Lactic Acid Level 1.6 Lipase 57 Result Diagram: 01/26/1764401/26/17644 Imaging Last Impressions Abdomen/Pelvis CT 01/26/1738 Signed Impressions: Service Date/Time: Thursday, January 26, 2017 07:59 - CONCLUSION: 1. Multiple metastatic lesions including both adrenal glands 2. Para-aortic/retrocrural and retroperitoneal adenopathy. 3. There is some prominent adenopathy in the left anterior pelvis which is intimately associated with bowel loops. 4. Multiple low-density liver lesions of uncertain etiology but metastatic disease cannot be excluded. 5. There is fluid in the pelvis could be related to free fluid versus loculated fluid collection. 6. Sclerotic bony metastasis. Timothy Lang MD Chest CT 01/26/17 0000 Signed Impressions: Service Date/Time: Thursday, January 26, 2017 07:59 - CONCLUSION: 1. Spiculated density right upper lobe again seen and unchanged. 2. Metastatic adenopathy throughout the hilar or mediastinum including periaortic adenopathy. 3. Bilateral metastatic adrenal masses. Multiple low-densities in the liver. 4. Sclerotic bony metastasis. 5. There does appear to be small amount of thrombus in the superior vena cava which was seen on previous study. Timothy Lang MD Caprini VTE Risk Assessment Caprini VTE Risk Assessment: Mod/High Risk (score >= 2) Caprini Risk Assessment Model Point Value = 1 Point Value = 2 Point Value = 3 Point Value = 5 Age 41-60 Minor surgery BMI > 25 kg/m2 Swollen legs Varicose veins or History of unexplained or recurrent spontaneous Oral contraceptives or hormone replacement Sepsis (< 1 month) Serious lung disease, including pneumonia (< 1 month) Abnormal pulmonary function Acute myocardial infarction Congestive heart failure (< 1 month) History of inflammatory bowel disease Medical patient at bed rest Age 61-74 Arthroscopic surgery Major open surgery (> 45 min) Laparoscopic surgery (> 45 min) Malignancy Confined to bed (> 72 hours) Immobilizing plaster cast Central venous access Age >= 75 History of VTE Family history of VTE Factor V Leiden Prothrombin [id number] Lupus anticoagulant Anticardiolipin antibodies Elevated serum homocysteine Heparin-induced thrombocytopenia Other congenital or acquired thrombophilia Stroke (< 1 month) Elective arthroplasty Hip, pelvis, or leg fracture Acute spinal cord injury (< 1 month) Prophylaxis Regimen Total Risk Factor Score Risk Level Prophylaxis Regimen 0-1 Low Early ambulation 2 Moderate Order ONE of the following: *Sequential Compression Device (SCD) *Heparin 5000 units SQ BID 3-4 Higher Order ONE of the following medications: *Heparin 5000 units SQ TID *Enoxaparin/Lovenox 40 mg SQ daily (WT < 150 kg, CrCl > 30 mL/min) *Enoxaparin/Lovenox 30 mg SQ daily (WT < 150 kg, CrCl > 10-29 mL/min) *Enoxaparin/Lovenox 30 mg SQ BID (WT < 150 kg, CrCl > 30 mL/min) AND/OR *Sequential Compression Device (SCD) 5 or more Highest Order ONE of the following medications: *Heparin 5000 units SQ TID (Preferred with Epidurals) *Enoxaparin/Lovenox 40 mg SQ daily (WT < 150 kg, CrCl > 30 mL/min) *Enoxaparin/Lovenox 30 mg SQ daily (WT < 150 kg, CrCl > 10-29 mL/min) *Enoxaparin/Lovenox 30 mg SQ BID (WT < 150 kg, CrCl > 30 mL/min) AND *Sequential Compression Device (SCD) Assessment and Plan Problem List: (1) Metastatic cancer ICD Code: C79.9 - Secondary malignant neoplasm of unspecified site Status: Acute (2) Lung cancer ICD Code: C34.90 - Malignant neoplasm of unspecified part of unspecified bronchus or lung (3) Abdominal pain ICD Code: R10.9 - Unspecified abdominal pain Status: Acute Assessment and Plan Mr. Zeng is 61 years old, with previous history of lung cancer. He was recently admitted to [facility] on 01/05/17 for respiratory distress, hypoxia, lung cancer, hyponatremia, hypo-calcium via, and rhabdomyolysis. Metastatic cancer Lung Cancer Abdominal pain Nausea/vomiting Diarrhea -Admitted to inpatient service -Oncology consult -IV fluids -Zofran 4 mg by mouth every 6 hours when necessary -Pain management -Palliative care consult -Labs in a.m. -Symbicort 1 puff every 12 hours -DuoNeb's every 4 hours while awake -Physical therapy consult -Case management consult DVT prophylaxis -Lovenox 40 mg sq every 24 hours -SCDs/MARTHA hose Diet -Regular This note was transcribed by jayashree Lopez PA-C . I, Dr. Asuncion Mata personally performed the history, physical exam, and medical decision making; and confirmed the accuracy of the information in the transcribed note. Authenticated by Dr. Asuncion Mata on 01/26/17 at 15:59. Discussed Condition With Patient and ED team. Physician Certification 2 Midnight Certification Type: Admission for Inpatient Services Order for Inpatient Services The services are ordered in accordance with Medicare regulations or non- Medicare payer requirements, as applicable. In the case of services not specified as inpatient-only, they are appropriately provided as inpatient services in accordance with the 2-midnight benchmark. Estimated LOS (days): 3 Three days is the estimated time the patient will need to remain in the hospital , assuming treatment plan goals are met and no additional complications. Post-Hospital Plan: Not yet determined Problem Qualifiers (1) Lung cancer: Qualified Codes: C34.11 - Malignant neoplasm of upper lobe, right bronchus or lung (2) Abdominal pain: Qualified Codes: R10.84 - Generalized abdominal pain Moustapha Lopez Jr. Jan 26, 2017 16:12 Asuncion Mata MD Jan 26, 2017 16:43
[2017-01-26] MEDS ORDERED: ACETAMINOPHEN/HYDROcodone 325 MG/5 MG TAB PO PRN (16:45)
[2017-01-26] MEDS ORDERED: MORPHINE SULFATE 4 MG/ML INJ IV PUSH PRN (16:45)
[2017-01-26 16:46] LABS: BLOOD, URINE NEG (NEG); GLUCOSE,URINE NEG (NEG); KETONE, URINE TRACE mg/dL (NEG); MUCUS URINE FEW /lpf (OCC); NITRITE,URINE NEG (NEG); PH, URINE 5.5 (5.0-8.5); URINE COLOR YELLOW (YELLW/STRAW)
[2017-01-26 16:47] LABS: COMMENT (UR) CULT NOT INDICATED; CULTURE IF INDICATED CULT NOT INDICATED
[2017-01-26] MEDS: ACETAMINOPHEN/HYDROcodone 325 MG/10 MG TAB PO PRN ×2 (17:47→21:42)
--- NOTE | 2017-01-26 19:06 | MB ---
cc: BARTOLO LORENZ DATE OF CONSULTATION 01/26/17 DATE OF 59 REQUESTING PHYSICIAN Hospitalist service. REASON FOR CONSULTATION Diagnosis of metastatic adenocarcinoma of lung primary associated with extensive metastases to the mediastinal lymph nodes, left supraclavicular lymph nodes as well as metastatic disease to bilateral adrenal glands and to the liver. Mutational analysis: MET mutation positive (Exon 14). The patient also with high PDL-1 expression of 80%. Treatment history to date: The patient is status post palliative mediastinal radiation for management of SVC syndrome which was delivered in November 2016 at [facility]. Systemic therapy to date: The patient has had none. CHIEF COMPLAINT The patient reports having had severe pain in his mid section which started at 8:00 p.m. on the night of 01/25/2017. He reports not being able to tolerate the pain any longer. Therefore, he presented to [facility] in [place] earlier today. HISTORY OF PRESENT ILLNESS Mr. Zeng is a 61-year-old male with an extensive past history of tobaccoism as well as marijuana consumption. The patient reports being in his usual state of health when he noticed facial swelling and swelling of his left arm in November of 2016. He presented to [facility] where he underwent imaging studies of the thorax. He was noted to have a spiculated mass in the right upper lobe of the lung and was found to have an SVC thrombus associated with extensive mediastinal lymphadenopathy. He underwent image guided biopsies of one of the accounts receivable representative lesions and was found to have adenocarcinoma of the lung. He was subsequently initiated on palliative radiation to the mediastinal lymph node chains. Of note, restaging imaging scans have indicated interval reduction in size of the mediastinal lymph nodes. An SVC thrombus was also identified and this was treated with anticoagulation. The patient had been evaluated and worked up by Dr. Timothy Arana of the [facility], however, Dr. Arana has not been able to initiate palliative outpatient systemic therapy due to the patient's lack of insurance. The patient presented to [facility] earlier today with the above-noted symptoms. He underwent repeat imaging studies including CT scan of the abdomen, pelvis and thorax. He was found to have enlarged bilateral adrenal glands with central necrosis. The adrenal gland measured greater than four or five cm each. The oncology service has been asked to see him for further workup and evaluation. PAST MEDICAL HISTORY 1. Metastatic adenocarcinoma of the lung. 2. SVC syndrome. 3. SVC thrombus. 4. Personal history of tobaccoism. 5. Extensive spinal scoliosis with deformity of the spine. PAST SURGICAL HISTORY Image guided biopsy of the lung mass/mediastinal lymph node mass. FAMILY HISTORY Mother with breast cancer. Multiple aunts on mom's side with breast cancer. The patient does not know of his father's health. ALLERGIES NO KNOWN DRUG ALLERGIES. SOCIAL HISTORY The patient is single. He has never been . He has no children. He lives at home with a roommate. He has a brother who is supportive. ALLERGIES NO KNOWN DRUG ALLERGIES. MEDICATIONS Inpatient 1. Normal saline 100 cc per hour. 2. Hydrocodone/acetaminophen 10/325 mg every 4 hours as needed for pain. 3. DuoNebs 1 ampule every 4 hours as needed for wheezing. 4. Symbicort 1 puff inhaled q.12 h. 5. Lovenox 40 mg subcu q.24 h. 6. Morphine sulfate 2 mg IV as needed every 4 hours for pain. 7. Zofran 4 mg IV every 6 hours as needed for nausea and vomiting. 8. Temazepam 50 mg p.o. q.h.s. as needed for insomnia. REVIEW OF SYSTEMS A 13-point review of systems was obtained. The following are the pertinent positives and negatives: CONSTITUTIONAL: Fatigue, weakness, loss of appetite. He reports weight loss. Denies fevers or chills. HEENT: Denies headaches, denies blurry vision. He reports facial swelling. He does report enlarging masses along the left side of his supraclavicular area. RESPIRATORY: Difficulty breathing at rest, difficulty breathing with exertion, cough without hemoptysis. CARDIOVASCULAR: Denies angina-like chest pain, PND, orthopnea. Denies lower extremity swelling. GI: Denies nausea, vomiting, diarrhea, hematochezia, melena. UROGENITAL: Denies dysuria, hematuria, urinary incontinence. 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 MUSCULOSKELETAL: Chronic back pain secondary to kyphoscoliosis. He reports pain in his chest. The chest pain is musculoskeletal. No other complaints reported. PHYSICAL EXAMINATION VITAL SIGNS: Temperature 98.4 degrees Fahrenheit, heart rate 95 beats a minute, respiratory rate 20, blood pressure 123/77, O2 sats 93% on room air. GENERAL APPEARANCE: Mr. Zeng is a middle-aged -[place] male. He has significant deformities of his axial skeleton with a very pronounced kyphoscoliosis with a barrel chest and what appears to be hypertrophy/failure in development of his torso. His limbs appeared to be of appropriate length. HEENT: Head atraumatic, normocephalic, conjunctivae are non pale, sclerae are anicteric, oral exam no pharyngeal erythema. He does have facial swelling and neck swelling. There is palpable pathologically enlarged lymphadenopathy along the left supraclavicular lymph node chains. RESPIRATORY: Prolonged expiratory phase with decreased bibasilar breath sounds. CARDIOVASCULAR: Regular rate and rhythm, S1-S2. ABDOMEN: Belly is thin, soft, no obvious tenderness, no organ enlargement. LOWER EXTREMITIES: No pretibial edema or calf tenderness. He has atrophy of the musculature of his legs. UPPER EXTREMITIES: Left upper extremity with edema. LABORATORY FINDINGS Blood work dated 01/26/2017: WBC count 11.8, hemoglobin is 8.5 gm/dl, hematocrit 26.5%, platelet count is 492, absolute neutrophil count is 8.3. Chemistries: Sodium 134, potassium 3.9, chloride 98, bicarb 27.8, BUN eight, creatinine 0.59, EGFR 77, calcium 7.8, total bilirubin 0.8, AST 28, ALT 23, albumin 2.6, alkaline phosphatase 88. IMAGING STUDIES CT scan of the chest dated 01/26/2017: Spiculated density in the right upper lobe. Metastatic adenopathy throughout the hilum and mediastinum. Periaortic lymphadenopathy noted. Bilateral metastatic adrenal masses with multiple low-density liver lesions as well. Sclerotic bony metastases are noted as well. There is a thrombus noted within the superior vena cava which was seen in the previous study but now appears to be smaller. ASSESSMENT Mr. Zeng is a 61-year-old man with a recently diagnosed metastatic adenocarcinoma of lung primary. His malignancy is positive for PDL-1 expression at 80%. 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 He presented initially to [facility] on November of 2016 with SVC syndrome. While at [facility] during that admission, he received palliative radiation to the mediastinum with resultant response as far as the SVC syndrome was concerned. He was on anticoagulation for his SVC syndrome but was taken off of Eliquis due to GI bleed at some point in the last month or month and a half. He has yet to receive systemic palliative therapy. He had followed with Dr. Arana at least on one occasion in the clinic, but Dr. Arana had advised the patient to seek out evaluation at [place] due to him being underensured. The patient is therefore yet to receive systemic palliative therapy such as first-line immunotherapy with Keytruda. Mr. Zeng presents to this hospital with complaints of abdominal pain. It appears his pain symptoms are likely related to the massive adrenal metastases. RECOMMENDATIONS 1. Metastatic adenocarcinoma of the lung: Due to the high expression of PDL-1 expression, Mr. Zeng has a high likelihood of responding positively to first line palliative immunotherapy with Keytruda. He also may potentially respond to Crizotinib which is a targeted agent (TKI) which has been shown to result in high rates of responses in individuals who harbor the MET mutation in [id number] lung cancer. Unfortunately, I am unable to start these treatments in the hospital and I will need him to be discharged so he can establish with myself or one of my associates in clinic so we can initiate treatment. 2. SVC syndrome with SVC thrombus: I would like him to start anticoagulation. I will check a stool for occult blood. 3. Anemia: Initiate empiric intravenous iron replacement therapy. 4. Abdominal pain: He will likely require some combination of long and short acting opioids to help manage his pain appropriately. Oncology will follow along with you. MD RONALD Deleon/ /5:54 PM /6:33 PM NINO
[2017-01-26 20:00] VITALS: BP 103/78; PULSE 99; RESP 16; TEMP 97.5; O2SAT 99
[2017-01-26] MEDS: BUDESONIDE-FORMOTEROL 160/4.5 MCG INHALER INH SCH (21:00)
[2017-01-26] MEDS: SODIUM CHLORIDE 0.9% FLUSH 10 ML FLUSH IV FLUSH SCH (21:00)
[2017-01-26] MEDS: TEMAZEPAM 15 MG CAP PO PRN (21:41)
[2017-01-26] MEDS: ENOXAPARIN SODIUM 40 MG/0.4 ML SYRINGE SQ SCH (21:43)
[2017-01-26] MEDS: DOCUSATE SODIUM 50 MG/SENNA 8.6 MG TAB PO SCH (21:43)
[2017-01-26 21:54] LABS: TRANSFERRIN IRON PROFILE 225 MG/DL (200-360)
[2017-01-26 21:57] LABS: FERRITIN 120 NG/ML (26-388)
[2017-01-27] VITALS: BP 96/70; PULSE 90; RESP 17; TEMP 97; O2SAT 98
[2017-01-27 04:00] VITALS: BP 91/74; PULSE 95; RESP 18; TEMP 96.8; O2SAT 98
--- NOTE | 2017-01-27 05:07 | EKG ---
Date Performed: 01/26/2017 Time Performed: 18:16:48 PTAGE: 61 years EKG: ATRIAL FIBRILLATION LOW QRS VOLTAGE IN PRECORDIAL LEADS NONSPECIFIC T-WAVE ABNORMALITY ABNO RMAL RHYTHM ECG PREVIOUS TRACING : 01/26/2017 11.26 DOCTOR: Wesley Mcclain Interpretating Date/Time 01/27/2017 05:04:01
--- NOTE | 2017-01-27 05:21 | EKG ---
Date Performed: 01/26/2017 Time Performed: 11:26:06 PTAGE: 61 years EKG: Sinus rhythm WITH SHORT NV INTERVAL LOW QRS VOLTAGE ABNORMAL ECG PREVIOUS TRACING : 01/05/2017 17.38 DOCTOR: Wesley Mcclain Interpretating Date/Time 01/27/2017 05:15:02
[2017-01-27] MEDS: ENOXAPARIN SODIUM 40 MG/0.4 ML SYRINGE SQ SCH ×2 (06:00→17:34)
[2017-01-27 06:17] LABS: AUTOMATED NEUTROPHIL # 7.9 TH/MM3 (1.8-7.7); BASOPHIL # 0.1 TH/MM3 (0-0.2); BASOPHIL % 0.8 % (0.0-2.0); EOSINOPHIL # 1.4 TH/MM3 (0-0.4); EOSINOPHIL % 12.3 % (0.0-4.0); HEMATOCRIT 27.7 % (39.0-51.0); HEMO FLAGS DIFF FINAL; LYMPH % 5.9 % (9.0-44.0); LYMPHOCYTE # 0.7 TH/MM3 (1.0-4.8); MEAN CELL VOLUME 82.4 FL (80.0-100.0); MEAN CORPUSCULAR HEMOGLOBIN 25.2 PG (27.0-34.0); MEAN CORPUSCULAR HGB CONC 30.5 % (32.0-36.0); MONO % 9.2 % (0.0-8.0); NEUT % 71.8 % (16.0-70.0); PLATELET COUNT 429 TH/MM3 (150-450); RED BLOOD COUNT 3.37 MIL/MM3 (4.50-5.90); RED CELL DISTRIBUTION WIDTH 19.5 % (11.6-17.2)
[2017-01-27 06:34] LABS: BICARBONATE 22.6 MEQ/L (21.0-32.0); POTASSIUM 3.3 MEQ/L (3.5-5.1)
[2017-01-27 06:55] LABS: CALCIUM-PROTEIN CORRECTED 7.9 MG/DL (8.5-10.1)
[2017-01-27 08:00] VITALS: BP 118/88; PULSE 112; RESP 18; TEMP 96.8; O2SAT 96
[2017-01-27] MEDS: RESP: ALBUTEROL 2.5 MG/IPRATROPIUM 0.5 MG NEB (SCH) NEB ×4 (08:00→19:34)
[2017-01-27] MEDS: SODIUM CHLORIDE 0.9% FLUSH 10 ML FLUSH IV FLUSH SCH ×2 (09:00→19:53)
[2017-01-27] MEDS: SODIUM CHLOR 0.9% 1000 ML INJ 1,000 ML IV SCH ×2 (09:34→19:53)
[2017-01-27] MEDS: BUDESONIDE-FORMOTEROL 160/4.5 MCG INHALER INH SCH ×2 (09:35→19:52)
[2017-01-27] MEDS: DOCUSATE SODIUM 50 MG/SENNA 8.6 MG TAB PO SCH ×2 (09:35→19:53)
[2017-01-27] MEDS: IRON SUCROSE INJ 200 MG in SODIUM CHLORIDE 0.9% INJ 100 ML IV SCH (09:35)
--- NOTE | 2017-01-27 09:37 | HHI.PR ---
Subjective Remarks In bed, says he feels improving some. No more diarrhea, able to keep down food. Less nausea, no vomiting. Pain is controlled by meds. Doesn't have appetite, wants meds to increase appetite.Breathing fairly well, no cough, fever or chills. No wheezing. Objective Vitals Vital Signs Date Time Temp Pulse Resp B/P (MAP) Pulse Ox O2 Delivery O2 Flow Rate FiO2 01/27/17 08:00 96.8 112 18 118/88 (98) 96 01/27/17 04:00 96.8 95 18 91/74 (80) 98 01/27/17 00:00 97.0 90 17 96/70 (79) 98 01/26/17 22:42 16 01/26/17 20:00 97.5 99 16 103/78 (86) 99 01/26/17 16:00 98.4 95 20 123/77 (92) 93 01/26/17 14:50 01/26/17 14:34 68 18 114/67 (83) 94 Room Air 01/26/17 11:17 97.9 93 19 125/83 (97) 96 Room Air I/O 01/26/17 01/26/17 01/26/17 01/27/17 01/27/17 01/27/17 07:00 15:00 23:00 07:00 15:00 23:00 Intake Total 580 ml 120 ml Output Total 100 ml 100 ml Balance 480 ml 20 ml Intake Oral 580 ml 120 ml Output Urine Total 100 ml 100 ml # Voids 1 # Bowel Movements 0 Result Diagram: 01/27/17 0525 01/27/17 0525 Imaging Last Impressions Abdomen/Pelvis CT 01/26/17 0638 Signed Impressions: Service Date/Time: Thursday, January 26, 2017 07:59 - CONCLUSION: 1. Multiple metastatic lesions including both adrenal glands 2. Para-aortic/retrocrural and retroperitoneal adenopathy. 3. There is some prominent adenopathy in the left anterior pelvis which is intimately associated with bowel loops. 4. Multiple low-density liver lesions of uncertain etiology but metastatic disease cannot be excluded. 5. There is fluid in the pelvis could be related to free fluid versus loculated fluid collection. 6. Sclerotic bony metastasis. Timothy Lang MD Chest CT 01/26/17 0000 Signed Impressions: Service Date/Time: Thursday, January 26, 2017 07:59 - CONCLUSION: 1. Spiculated density right upper lobe again seen and unchanged. 2. Metastatic adenopathy throughout the hilar or mediastinum including periaortic adenopathy. 3. Bilateral metastatic adrenal masses. Multiple low-densities in the liver. 4. Sclerotic bony metastasis. 5. There does appear to be small amount of thrombus in the superior vena cava which was seen on previous study. Timothy Lang MD Objective Remarks GENERAL: This is a cachectic appearing, evidencing protein malnutrition patient , in mild distress. CARDIOVASCULAR: Regular rate and rhythm without murmurs, gallops, or rubs. RESPIRATORY: Clear to auscultation. Breath sounds equal bilaterally with bibasilar crackles present.. No wheezes or rhonchi. GASTROINTESTINAL: Abdomen was generally soft, non-tender, nondistended. However left upper quadrant was firm. No hepato-splenomegaly or guarding. MUSCULOSKELETAL: Extremities without clubbing, cyanosis, or edema. NEUROLOGICAL: Awake and alert. Cranial nerves II through XII intact. Motor and sensory grossly within normal limits. Five out of 5 muscle strength in all muscle groups. Normal speech. A/P Problem List: (1) Metastatic cancer ICD Code: C79.9 - Secondary malignant neoplasm of unspecified site Status: Acute (2) Lung cancer ICD Code: C34.90 - Malignant neoplasm of unspecified part of unspecified bronchus or lung (3) Abdominal pain ICD Code: R10.9 - Unspecified abdominal pain Status: Acute Assessment and Plan Mr. Zeng is 61 years old, with previous history of lung cancer. He was recently admitted to [facility] on 01/05/17 for respiratory distress, hypoxia, lung cancer, hyponatremia, hypo-calcium via, and rhabdomyolysis. Metastatic adenocarcinoma of the lung on ketruda, palliative chemo SVC sdr with SVC thrombus, start anticoagulation per Dr Chavez, check FOBT before starting anticoag Anemia: Start iron supplement IV Abdominal pain, controlled with opioids Nausea/vomiting, improving Diarrhea, improved -Admitted to inpatient service -Oncology consult. patient with lung Ca with mets , will also consult palliative care for goals of care -IV fluids -Zofran 4 mg by mouth every 6 hours when necessary -Pain management -Palliative care consult -Labs in a.m. -Symbicort 1 puff every 12 hours -DuoNeb's every 4 hours while awake -Physical therapy consult -Case management consult Decrease appetite, severe prot fely malnutrition. 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 Add megace, add multivit and ensure to diet. 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
[2017-01-27 12:00] VITALS: BP 101/71; PULSE 101; RESP 16; TEMP 97.2; O2SAT 92
[2017-01-27] MEDS: MEGESTROL ACETATE SUSP 400 MG/10 ML CUP PO SCH (12:04)
[2017-01-27 16:00] VITALS: BP 115/84; PULSE 106; RESP 18; TEMP 97.6; O2SAT 95
--- NOTE | 2017-01-27 19:51 | PD.ONC.PN ---
Subjective Subjective Remarks Patient was seen and examined, labs, medications and vital signs were reviewed. He reports his pain is better today. He wants to know when he can go home. He denies difficulty breathing. He continues to have some swelling of the L upper ext, face and neck. Objective Data Date Time Temp Pulse Resp B/P (MAP) Pulse Ox O2 Delivery O2 Flow Rate FiO2 01/27/17 16:00 97.6 106 18 115/84 (94) 95 01/27/17 12:00 97.2 101 16 101/71 (81) 92 01/27/17 08:00 96.8 112 18 118/88 (98) 96 01/27/17 04:00 96.8 95 18 91/74 (80) 98 01/27/17 00:00 97.0 90 17 96/70 (79) 98 01/26/17 22:42 16 01/26/17 20:00 97.5 99 16 103/78 (86) 99 01/27/17 01/27/17 01/27/17 06:59 14:59 22:59 Intake Total 120 ml 720 ml Output Total 100 ml 225 ml 225 ml Balance 20 ml -225 ml 495 ml Result Diagram: 01/27/17 0525 01/27/17 0525 Laboratory Results Laboratory Tests Test 01/27/17 05:25 White Blood Count 11.0 TH/MM3 Red Blood Count 3.37 MIL/MM3 Hemoglobin 8.5 GM/DL Hematocrit 27.7 % Mean Corpuscular Volume 82.4 FL Mean Corpuscular Hemoglobin 25.2 PG Mean Corpuscular Hemoglobin Concent 30.5 % Red Cell Distribution Width 19.5 % Platelet Count 429 TH/MM3 Mean Platelet Volume 7.2 FL Neutrophils (%) (Auto) 71.8 % Lymphocytes (%) (Auto) 5.9 % Monocytes (%) (Auto) 9.2 % Eosinophils (%) (Auto) 12.3 % Basophils (%) (Auto) 0.8 % Neutrophils # (Auto) 7.9 TH/MM3 Lymphocytes # (Auto) 0.7 TH/MM3 Monocytes # (Auto) 1.0 TH/MM3 Eosinophils # (Auto) 1.4 TH/MM3 Basophils # (Auto) 0.1 TH/MM3 CBC Comment DIFF FINAL Differential Comment Blood Urea Nitrogen 5 MG/DL Creatinine 0.41 MG/DL Random Glucose 60 MG/DL Total Protein 5.9 GM/DL Calcium Level 7.3 MG/DL Sodium Level 136 MEQ/L Potassium Level 3.3 MEQ/L Chloride Level 105 MEQ/L Carbon Dioxide Level 22.6 MEQ/L Anion Gap 8 MEQ/L Estimat Glomerular Filtration Rate 259 ML/MIN Protein Corrected Calcium 7.9 MG/DL Administered Medications Medications (Trade) Dose Ordered Sig/Shravan Route PRN Reason Start Time Stop Time Status Last Admin Dose Admin Sodium Chloride 1,000 ml @ 100 mls/hr Q10H IV 01/26/17 12:00 01/27/17 09:34 Temazepam (Restoril) 15 mg HS PRN PO INSOMNIA 01/26/17 11:15 01/26/17 21:41 Senna/Docusate Sodium (Darcy-Colace) 1 tab BID PO 01/26/17 21:00 01/27/17 09:35 Budesonide/ Formoterol Fumarate (Symbicort 160-4.5 Inh) 1 puff Q12HR INH 01/26/17 21:00 01/27/17 09:35 Albuterol/ Ipratropium (Duoneb Neb) 1 ampule Q4HR WHILE AWAKE NEB NEB 01/26/17 12:00 01/27/17 19:34 Acetaminophen/ Hydrocodone Bitart ([place] 10-325 Mg) 1 tab Q4H PRN PO PAIN SCALE 6 TO 10 01/26/17 16:45 01/26/17 21:42 Enoxaparin Sodium (Lovenox Inj) 40 mg Q12H SQ 01/26/17 18:00 01/27/17 17:34 Iron Sucrose 200 mg/Sodium Chloride 110 ml @ 110 mls/hr DAILY IV 01/27/17 09:00 01/29/17 09:59 01/27/17 09:35 Megestrol Acetate (Megace Liq) 400 mg DAILY PO 01/27/17 10:00 01/27/17 12:04 Objective Remarks GENERAL APPEARANCE: Mr. Zeng is a middle-aged -Nepalese male. He has significant deformities of his axial skeleton with a very pronounced kyphoscoliosis with a barrel chest and what appears to be hypertrophy/failure in development of his torso. His limbs appeared to be of appropriate length. HEENT: Head atraumatic, normocephalic, conjunctivae are non pale, sclerae are anicteric, oral exam no pharyngeal erythema. He does have facial swelling and neck swelling. There is palpable pathologically enlarged lymphadenopathy along the left supraclavicular lymph node chains. RESPIRATORY: Prolonged expiratory phase with decreased bibasilar breath sounds. CARDIOVASCULAR: Regular rate and rhythm, S1-S2. ABDOMEN: Belly is thin, soft, no obvious tenderness, no organ enlargement. LOWER EXTREMITIES: No pretibial edema or calf tenderness. He has atrophy of the musculature of his legs. UPPER EXTREMITIES: Left upper extremity with edema. Assessment/Plan Assessment Mr. Zeng is a 61-year-old man with a recently diagnosed metastatic adenocarcinoma of lung primary. His malignancy is positive for PDL-1 expression at 80%. 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 He presented initially to [facility] on November of 2016 with SVC syndrome. While at [facility] during that admission, he received palliative radiation to the mediastinum with resultant response as far as the SVC syndrome was concerned. He was on anticoagulation for his SVC syndrome but was taken off of Eliquis due to GI bleed at some point in the last month or month and a half. He has yet to receive systemic palliative therapy. He had followed with Dr. Arana at least on one occasion in the clinic, but Dr. Arana had advised the patient to seek out evaluation at [place] due to him being underensured. The patient is therefore yet to receive systemic palliative therapy such as first-line immunotherapy with Keytruda. Mr. Zeng presents to this hospital with complaints of abdominal pain. It appears his pain symptoms are likely related to the massive adrenal metastases. Plan 1. Metastatic adenocarcinoma of lung primary: PDL-1 expression 80%, also positive for the c-MET (exon 14) mutation. He is a candidate for 1st line immunotherapy with Keytruda or even crizotinib. He is motivated to initiate treatment as an out patient. Because keytruda is an immunotherapeutic agent and is generally well tolerated, I do not think he should have difficulty tolerating this. I am hopefully this will result in an improvement of his disease related symptoms and help prolong his survival. The anticipated response rate with Keytruda in individuals with >50% PDL-1 expression is >65% ( compared with a 35 -40% overall response rates to conventional palliative 1st line chemotherapy combination regimens in the 1st line setting). His goals of care are defined above. He is motivated to proceed. I have requested my office to schedule him for an out patient visit. He may be d/chris home when his ABD pain symptoms improve to the point he may be managed on an out patient pain medication regimen. Phillip Chavez MD Jan 27, 2017 19:51
[2017-01-27] MEDS: ACETAMINOPHEN/HYDROcodone 325 MG/10 MG TAB PO PRN (19:52)
[2017-01-27 20:00] VITALS: BP 101/68; PULSE 101; RESP 18; TEMP 96.3; O2SAT 93
[2017-01-27] MEDS: TEMAZEPAM 15 MG CAP PO PRN (21:05)
[2017-01-28] VITALS (8 sets, daily range): BP systolic 90–111; BP diastolic 61–83; PULSE 80–102; RESP 17–20; TEMP 96.1–98.4; O2SAT 94–100
[2017-01-28] MEDS: ENOXAPARIN SODIUM 40 MG/0.4 ML SYRINGE SQ SCH ×2 (05:27→18:05)
[2017-01-28] MEDS: SODIUM CHLOR 0.9% 1000 ML INJ 1,000 ML IV SCH ×3 (05:28→23:55)
[2017-01-28 07:06] LABS: AUTOMATED NEUTROPHIL # 6.8 TH/MM3 (1.8-7.7); BASOPHIL # 0.1 TH/MM3 (0-0.2); BASOPHIL % 0.9 % (0.0-2.0); EOSINOPHIL # 0.9 TH/MM3 (0-0.4); EOSINOPHIL % 9.9 % (0.0-4.0); HEMO FLAGS DIFF FINAL; LYMPHOCYTE # 0.6 TH/MM3 (1.0-4.8); MEAN CELL VOLUME 81.8 FL (80.0-100.0); MEAN CORPUSCULAR HEMOGLOBIN 25.9 PG (27.0-34.0); MEAN CORPUSCULAR HGB CONC 31.6 % (32.0-36.0); MONO % 11.6 % (0.0-8.0); NEUT % 71.6 % (16.0-70.0); PLATELET COUNT 457 TH/MM3 (150-450); RED BLOOD COUNT 3.18 MIL/MM3 (4.50-5.90); RED CELL DISTRIBUTION WIDTH 19.9 % (11.6-17.2); WHITE BLOOD COUNT 9.5 TH/MM3 (4.0-11.0)
[2017-01-28] MEDS: RESP: ALBUTEROL 2.5 MG/IPRATROPIUM 0.5 MG NEB (SCH) NEB ×4 (07:26→21:00)
[2017-01-28 07:29] LABS: BICARBONATE 23.2 MEQ/L (21.0-32.0)
[2017-01-28 07:34] LABS: POTASSIUM 4.1 MEQ/L (3.5-5.1)
[2017-01-28 07:46] LABS: CALCIUM-PROTEIN CORRECTED 7.7 MG/DL (8.5-10.1)
[2017-01-28] MEDS: MEGESTROL ACETATE SUSP 400 MG/10 ML CUP PO SCH ×3 (08:16→20:08)
[2017-01-28] MEDS: BUDESONIDE-FORMOTEROL 160/4.5 MCG INHALER INH SCH ×2 (08:16→20:07)
[2017-01-28] MEDS: SODIUM CHLORIDE 0.9% FLUSH 10 ML FLUSH IV FLUSH SCH ×2 (08:16→20:07)
[2017-01-28] MEDS: IRON SUCROSE INJ 200 MG in SODIUM CHLORIDE 0.9% INJ 100 ML IV SCH (08:16)
[2017-01-28] MEDS: DOCUSATE SODIUM 50 MG/SENNA 8.6 MG TAB PO SCH ×2 (08:17→20:07)
--- NOTE | 2017-01-28 08:49 | HHI.PR ---
Subjective Remarks No current complaints at the moment. Receiving IV iron infusion No nausea or vomiting at the moment no shortness of breath or chest pain No dysuria or hematuria Hopefully can discharge to home tomorrow once can be set up with follow-up A.m. labs Physical therapy and occupational therapy to eval and treat Objective Vitals Vital Signs Date Time Temp Pulse Resp B/P (MAP) Pulse Ox O2 Delivery O2 Flow Rate FiO2 01/28/17 07:26 95 21 01/28/17 04:00 96.1 102 18 111/83 (92) 98 01/28/17 00:00 97.0 95 17 98/70 (79) 94 01/27/17 20:00 96.3 101 18 101/68 (79) 93 01/27/17 16:00 97.6 106 18 115/84 (94) 95 01/27/17 12:00 97.2 101 16 101/71 (81) 92 I/O 01/27/17 01/27/17 01/27/17 01/28/17 01/28/17 01/28/17 07:00 15:00 23:00 07:00 15:00 23:00 Intake Total 120 ml 960 ml 120 ml Output Total 100 ml 225 ml 375 ml 150 ml Balance 20 ml -225 ml 585 ml -30 ml Intake Oral 120 ml 960 ml 120 ml Output Urine Total 100 ml 225 ml 375 ml 150 ml # Voids 4 # Bowel Movements 1 Result Diagram: 01/28/17 0602 01/28/17 0602 Other Results Laboratory Tests Test 01/26/17 06:45 01/26/17 16:22 01/27/17 05:25 01/28/17 06:02 White Blood Count 11.8 TH/MM3 11.0 TH/MM3 9.5 TH/MM3 Red Blood Count 3.30 MIL/MM3 3.37 MIL/MM3 3.18 MIL/MM3 Hemoglobin 8.5 GM/DL 8.5 GM/DL 8.2 GM/DL Hematocrit 26.5 % 27.7 % 26.0 % Mean Corpuscular Volume 80.3 FL 82.4 FL 81.8 FL Mean Corpuscular Hemoglobin 25.7 PG 25.2 PG 25.9 PG Mean Corpuscular Hemoglobin Concent 32.0 % 30.5 % 31.6 % Red Cell Distribution Width 19.2 % 19.5 % 19.9 % Platelet Count 492 TH/MM3 429 TH/MM3 457 TH/MM3 Mean Platelet Volume 7.1 FL 7.2 FL 7.5 FL Neutrophils (%) (Auto) 70.6 % 71.8 % 71.6 % Lymphocytes (%) (Auto) 8.0 % 5.9 % 6.0 % Monocytes (%) (Auto) 9.6 % 9.2 % 11.6 % Eosinophils (%) (Auto) 11.1 % 12.3 % 9.9 % Basophils (%) (Auto) 0.7 % 0.8 % 0.9 % Neutrophils # (Auto) 8.3 TH/MM3 7.9 TH/MM3 6.8 TH/MM3 Lymphocytes # (Auto) 0.9 TH/MM3 0.7 TH/MM3 0.6 TH/MM3 Monocytes # (Auto) 1.1 TH/MM3 1.0 TH/MM3 1.1 TH/MM3 Eosinophils # (Auto) 1.3 TH/MM3 1.4 TH/MM3 0.9 TH/MM3 Basophils # (Auto) 0.1 TH/MM3 0.1 TH/MM3 0.1 TH/MM3 CBC Comment DIFF FINAL DIFF FINAL DIFF FINAL Differential Comment Blood Urea Nitrogen 8 MG/DL 5 MG/DL 5 MG/DL Creatinine 0.59 MG/DL 0.41 MG/DL 0.34 MG/DL Random Glucose 77 MG/DL 60 MG/DL 59 MG/DL Total Protein 6.5 GM/DL 5.9 GM/DL 5.5 GM/DL Albumin 2.6 GM/DL Calcium Level 7.8 MG/DL 7.3 MG/DL 6.9 MG/DL Alkaline Phosphatase 88 U/L Aspartate Amino Transf (AST/SGOT) 28 U/L Alanine Aminotransferase (ALT/SGPT) 23 U/L Total Bilirubin 0.8 MG/DL Sodium Level 134 MEQ/L 136 MEQ/L 135 MEQ/L Potassium Level 3.9 MEQ/L 3.3 MEQ/L 4.1 MEQ/L Chloride Level 98 MEQ/L 105 MEQ/L 105 MEQ/L Carbon Dioxide Level 27.8 MEQ/L 22.6 MEQ/L 23.2 MEQ/L Anion Gap 8 MEQ/L 8 MEQ/L 7 MEQ/L Estimat Glomerular Filtration Rate 170 ML/MIN 259 ML/MIN 322 ML/MIN Lactic Acid Level 1.6 mmol/L Iron Level 16 MCG/DL Total Iron Binding Capacity 315 MCG/DL Percent Iron Saturation 5.1 % Ferritin 120 NG/ML Lipase 57 U/L Urine Color YELLOW Urine Turbidity CLEAR Urine pH 5.5 Urine Specific [place] GREATER THAN 1.050 Urine Protein TRACE mg/dL Urine Glucose (UA) NEG mg/dL Urine Ketones TRACE mg/dL Urine Occult Blood NEG Urine Nitrite NEG Urine Bilirubin NEG Urine Urobilinogen LESS THAN 2.0 MG/DL Urine Leukocyte Esterase NEG Urine RBC LESS THAN 1 /hpf Urine WBC 1 /hpf Urine Mucus FEW /lpf Microscopic Urinalysis Comment CULT NOT INDICATED Protein Corrected Calcium 7.9 MG/DL 7.7 MG/DL Magnesium Level 2.0 MG/DL Imaging Last Impressions Abdomen/Pelvis CT 01/26/17 0638 Signed Impressions: Service Date/Time: Thursday, January 26, 2017 07:59 - CONCLUSION: 1. Multiple metastatic lesions including both adrenal glands 2. Para-aortic/retrocrural and retroperitoneal adenopathy. 3. There is some prominent adenopathy in the left anterior pelvis which is intimately associated with bowel loops. 4. Multiple low-density liver lesions of uncertain etiology but metastatic disease cannot be excluded. 5. There is fluid in the pelvis could be related to free fluid versus loculated fluid collection. 6. Sclerotic bony metastasis. Timothy Lang MD Chest CT 01/26/17 0000 Signed Impressions: Service Date/Time: Thursday, January 26, 2017 07:59 - CONCLUSION: 1. Spiculated density right upper lobe again seen and unchanged. 2. Metastatic adenopathy throughout the hilar or mediastinum including periaortic adenopathy. 3. Bilateral metastatic adrenal masses. Multiple low-densities in the liver. 4. Sclerotic bony metastasis. 5. There does appear to be small amount of thrombus in the superior vena cava which was seen on previous study. Timothy Lang MD Objective Remarks GENERAL: Awake alert and oriented talkative and cooperative appears to be improved SKIN: Warm and dry. HEAD: Atraumatic. Normocephalic. EYES: Pupils equal and round. No scleral icterus. No injection or drainage. Extraocular muscles intact ENT: No nasal bleeding or discharge. Mucous membranes pink and moist. Tongue is midline NECK: Trachea midline. No JVD. Neck is supple CARDIOVASCULAR: Regular rate and rhythm. S1-S2 no S3 or S4 no heave or thrill or rub RESPIRATORY: No accessory muscle use. Coarse breath sounds bilaterally. Breath sounds equal bilaterally. GASTROINTESTINAL: Abdomen soft, non-tender, nondistended. Hepatic and splenic margins not palpable. MUSCULOSKELETAL: Extremities without clubbing, cyanosis, or edema. No obvious deformities. NEUROLOGICAL: Awake and alert. No obvious cranial nerve deficits. Motor grossly within normal limits. Five out of 5 muscle strength in the arms and legs. Normal speech. PSYCHIATRIC: Appropriate mood and affect; insight and judgment normal. Medications and IVs Current Medications Morphine Sulfate (Morphine Inj) 2 mg ONCE ONCE IV PUSH Last administered on 06:53; Start 01/26/17 at 06:45; Stop 01/26/17 at 06:46; Status DC Ondansetron HCl (Zofran Inj) 4 mg ONCE ONCE IVP Last administered on 06:54; Start 01/26/17 at 06:45; Stop 01/26/17 at 06:46; Status DC Sodium Chloride 1,000 ml @ 125 mls/hr Q8H IV Last administered on 01/26/17 06 :53; Start 01/26/17 at 06:38; Stop 01/26/17 at 11:26; Status DC Sodium Chloride (NS Flush) 2 ml UNSCH PRN IV FLUSH FLUSH AFTER USING IV ACCESS ; Start 01/26/17 at 06:45; Stop 01/26/17 at 11:27; Status DC Famotidine (Pepcid Inj) 20 mg ONCE ONCE IV PUSH Last administered on 06:54; Start 01/26/17 at 06:45; Stop 01/26/17 at 06:46; Status DC Iohexol (Omnipaque 350 Inj) 92 ml STK-MED ONCE IVCONTRAST Last administered on 01/26/17 06:01; Start 01/26/17 at 06:01; Stop 01/26/17 at 08:08; Status DC Sodium Chloride 1,000 ml @ 999 mls/hr BOLUS ONCE IV Last administered on 01/26 10:07; Start 01/26/17 at 10:00; Stop 01/26/17 at 11:00; Status DC Sodium Chloride 1,000 ml @ 100 mls/hr Q10H IV Last administered on 01/28/17 05:28; Start 01/26/17 at 12:00 Sodium Chloride (NS Flush) 2 ml UNSCH PRN IV FLUSH FLUSH AFTER USING IV ACCESS ; Start 01/26/17 at 11:15 Sodium Chloride (NS Flush) 2 ml BID IV FLUSH Last administered on 01/28/17 08: 16; Start 01/26/17 at 21:00 Acetaminophen (Tylenol) 650 mg Q4H PRN PO TEMP > 100.4; Start 01/26/17 at 11:15 Temazepam (Restoril) 15 mg HS PRN PO INSOMNIA Last administered on 01/27/17 21 :05; Start 01/26/17 at 11:15 Enoxaparin Sodium (Lovenox Inj) 40 mg Q24H SQ Last administered on 01/26/17 13 :07; Start 01/26/17 at 13:00; Stop 01/26/17 at 18:11; Status DC Naloxone HCl (Narcan Inj) 0.4 mg UNSCH PRN IV PUSH SEE LABEL COMMENTS; Start 01/26/17 at 11:15; Stop 01/26/17 at 17:46; Status DC Senna/Docusate Sodium (Darcy-Colace) 1 tab BID PO Last administered on 09:35; Start 01/26/17 at 21:00 Magnesium Hydroxide (Milk Of Magnesia Liq) 30 ml Q12H PRN PO MILD - MODERATE CONSTIPATION; Start 01/26/17 at 11:15 Sennosides (Senokot) 17.2 mg Q12H PRN PO MODERATE - SEVERE CONSTIPATION; Start 01/26/17 at 11:15 Bisacodyl (Dulcolax Supp) 10 mg DAILY PRN RECTAL SEVERE CONSITIPATION; Start 01/26/17 at 11:15 Lactulose (Lactulose Liq) 30 ml DAILY PRN PO SEVERE CONSITIPATION; Start at 11:15 Budesonide/ Formoterol Fumarate (Symbicort 160-4.5 Inh) 1 puff Q12HR INH Last administered on 01/28/17 08:16; Start 01/26/17 at 21:00 Albuterol/ Ipratropium (Duoneb Neb) 1 ampule Q4HR WHILE AWAKE NEB NEB Last administered on 01/28/17 07:26; Start 01/26/17 at 12:00 Acetaminophen/ Hydrocodone Bitart ([place] 5-325 Mg) 1 tab Q4H PRN PO PAIN SCALE 3 TO 5; Start 01/26/17 at 16:45 Acetaminophen/ Hydrocodone Bitart ([place] 10-325 Mg) 1 tab Q4H PRN PO PAIN SCALE 6 TO 10 Last administered on 01/27/17 19:52; Start 01/26/17 at 16:45 Morphine Sulfate (Morphine Inj) 2 mg Q4H PRN IV PUSH BREAKTHROUGH PAIN; Start 01/26/17 at 16:45 Naloxone HCl (Narcan Inj) 0.4 mg UNSCH PRN IV PUSH SEE LABEL COMMENTS; Start 01/26/17 at 16:45 Enoxaparin Sodium (Lovenox Inj) 40 mg Q12H SQ Last administered on 01/28/17 05 :27; Start 01/26/17 at 18:00 Iron Sucrose 200 mg/Sodium Chloride 110 ml @ 110 mls/hr DAILY IV Last administered on 01/28/17 08:16; Start 01/27/17 at 09:00; Stop 01/29/17 at 09:59 Megestrol Acetate (Megace Liq) 400 mg DAILY PO Last administered on 01/28/17 08:16; Start 01/27/17 at 10:00 Urinary Catheter: No Vascular Central Line Catheter: No A/P Problem List: (1) Metastatic cancer ICD Code: C79.9 - Secondary malignant neoplasm of unspecified site Status: Acute (2) Lung cancer ICD Code: C34.90 - Malignant neoplasm of unspecified part of unspecified bronchus or lung (3) Abdominal pain ICD Code: R10.9 - Unspecified abdominal pain Status: Acute Assessment and Plan Mr. Zeng is 61 years old, with previous history of lung cancer. He was recently admitted to [facility] on 01/05/17 for respiratory distress, hypoxia, lung cancer, hyponatremia, hypo-calcium via, and rhabdomyolysis. Metastatic adenocarcinoma of the lung on ketruda, palliative chemo SVC syndrome with SVC thrombus, start anticoagulation per Dr Chavez, check FOBT before starting anticoag Anemia: Start iron supplement IV - am labs Abdominal pain, controlled with opioids - po meds only Nausea/vomiting, improving Diarrhea, improved -Admitted to inpatient service -Oncology consult. patient with lung Ca with mets , will also consult palliative care for goals of care -IV fluids -Zofran 4 mg by mouth every 6 hours when necessary -Pain management- po meds only -Palliative care consult -Labs in a.m. -Symbicort 1 puff every 12 hours -DuoNeb's every 4 hours while awake -Physical therapy consult -Case management consult Decrease appetite, severe prot fely malnutrition. 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 Add megace, add multivit and ensure to diet. consult corset fitter DVT prophylaxis -Lovenox 40 mg sq every 24 hours -SCDs/MARTHA hose Diet -Regular as danielito Physical therapy and occupational therapy to eval and treat consult case management regarding discharge A.m. labs Hopefully home in next 24 hours Problem Qualifiers (1) Lung cancer: Qualified Codes: C34.11 - Malignant neoplasm of upper lobe, right bronchus or lung (2) Abdominal pain: Qualified Codes: R10.84 - Generalized abdominal pain Bang Stubbs DO Jan 28, 2017 08:49
--- NOTE | 2017-01-28 09:36 | PD.ONC.PN ---
Subjective Subjective Remarks Afebrile overnight Patient reports overall he is sleeping much better and his pain is much better controlled Objective Data Date Time Temp Pulse Resp B/P (MAP) Pulse Ox O2 Delivery O2 Flow Rate FiO2 01/28/17 08:00 98.0 93 20 99/77 (84) 100 01/28/17 07:26 95 21 01/28/17 04:00 96.1 102 18 111/83 (92) 98 01/28/17 00:00 97.0 95 17 98/70 (79) 94 01/27/17 20:00 96.3 101 18 101/68 (79) 93 01/27/17 16:00 97.6 106 18 115/84 (94) 95 01/27/17 12:00 97.2 101 16 101/71 (81) 92 01/28/17 01/28/17 01/28/17 07:00 15:00 23:00 Intake Total 120 ml Output Total 150 ml Balance -30 ml Result Diagram: 01/28/1702 01/28/17 0602 Laboratory Results Laboratory Tests Test 01/28/17 06:02 White Blood Count 9.5 TH/MM3 Red Blood Count 3.18 MIL/MM3 Hemoglobin 8.2 GM/DL Hematocrit 26.0 % Mean Corpuscular Volume 81.8 FL Mean Corpuscular Hemoglobin 25.9 PG Mean Corpuscular Hemoglobin Concent 31.6 % Red Cell Distribution Width 19.9 % Platelet Count 457 TH/MM3 Mean Platelet Volume 7.5 FL Neutrophils (%) (Auto) 71.6 % Lymphocytes (%) (Auto) 6.0 % Monocytes (%) (Auto) 11.6 % Eosinophils (%) (Auto) 9.9 % Basophils (%) (Auto) 0.9 % Neutrophils # (Auto) 6.8 TH/MM3 Lymphocytes # (Auto) 0.6 TH/MM3 Monocytes # (Auto) 1.1 TH/MM3 Eosinophils # (Auto) 0.9 TH/MM3 Basophils # (Auto) 0.1 TH/MM3 CBC Comment DIFF FINAL Differential Comment Blood Urea Nitrogen 5 MG/DL Creatinine 0.34 MG/DL Random Glucose 59 MG/DL Total Protein 5.5 GM/DL Calcium Level 6.9 MG/DL Magnesium Level 2.0 MG/DL Sodium Level 135 MEQ/L Potassium Level 4.1 MEQ/L Chloride Level 105 MEQ/L Carbon Dioxide Level 23.2 MEQ/L Anion Gap 7 MEQ/L Estimat Glomerular Filtration Rate 322 ML/MIN Protein Corrected Calcium 7.7 MG/DL Administered Medications Medications (Trade) Dose Ordered Sig/Shravan Route PRN Reason Start Time Stop Time Status Last Admin Dose Admin Sodium Chloride 1,000 ml @ 100 mls/hr Q10H IV 01/26/17 12:00 01/28/17 05:28 Sodium Chloride (NS Flush) 2 ml BID IV FLUSH 01/26/17 21:00 01/28/17 08:16 Temazepam (Restoril) 15 mg HS PRN PO INSOMNIA 01/26/17 11:15 01/27/17 21:05 Senna/Docusate Sodium (Darcy-Colace) 1 tab BID PO 01/26/17 21:00 01/27/17 09:35 Budesonide/ Formoterol Fumarate (Symbicort 160-4.5 Inh) 1 puff Q12HR INH 01/26/17 21:00 01/28/17 08:16 Albuterol/ Ipratropium (Duoneb Neb) 1 ampule Q4HR WHILE AWAKE NEB NEB 01/26/17 12:00 01/28/17 07:26 Acetaminophen/ Hydrocodone Bitart ([place] 10-325 Mg) 1 tab Q4H PRN PO PAIN SCALE 6 TO 10 01/26/17 16:45 01/27/17 19:52 Enoxaparin Sodium (Lovenox Inj) 40 mg Q12H SQ 01/26/17 18:00 01/28/17 05:27 Iron Sucrose 200 mg/Sodium Chloride 110 ml @ 110 mls/hr DAILY IV 01/27/17 09:00 01/29/17 09:59 01/28/17 08:16 Objective Remarks GENERAL: Older male resting in bed in no acute distress. 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 He appears comfortable. SKIN: Warm and dry. Xerostomia HEAD: Normocephalic. EYES: No injection or drainage. NECK: Supple, trachea midline. CARDIOVASCULAR: Regular rate and rhythm without murmurs. RESPIRATORY: Clear anteriorly but mildly decreased to the right. Breathing unlabored. GASTROINTESTINAL: Abdomen somewhat firm but not distended. Nontender. EXTREMITIES: No cyanosis, or edema. MUSCULOSKELETAL: Generalized weakness NEUROLOGICAL: No obvious focal deficit. Awake, alert, and oriented x3. Assessment/Plan Assessment Mr. Zeng is a 61-year-old man with a recently diagnosed metastatic adenocarcinoma of lung primary. His malignancy is positive for PDL-1 expression at 80%. 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 He presented initially to [facility] on November of 2016 with SVC syndrome. While at [facility] during that admission, he received palliative radiation to the mediastinum with resultant response as far as the SVC syndrome was concerned. He was on anticoagulation for his SVC syndrome but was taken off of Eliquis due to GI bleed at some point in the last month or month and a half. He has yet to receive systemic palliative therapy. He had followed with Dr. Arana at least on one occasion in the clinic, but Dr. Arana had advised the patient to seek out evaluation at [facility] due to him being underensured. The patient is therefore yet to receive systemic palliative therapy such as first-line immunotherapy with Keytruda. Mr. Zeng presents to this hospital with complaints of abdominal pain. It appears his pain symptoms are likely related to the massive adrenal metastases. Plan 1. We will plan for first line immunotherapy with Keytruda once he is discharged. 2. His pain is much better controlled; he has not been using any IV narcotic medication. 3. Continue IV iron replacement. 4. He is clear for discharge from an oncology standpoint after last bag of IV iron tomorrow. Follow-up in clinic with Dr. Chavez. Nicole Wisdom Jan 28, 2017 09:36
[2017-01-28] MEDS: ACETAMINOPHEN/HYDROcodone 325 MG/10 MG TAB PO PRN (15:55)
[2017-01-28] MEDS: TEMAZEPAM 15 MG CAP PO PRN (23:55)
[2017-01-29] VITALS (9 sets, daily range): BP systolic 91–115; BP diastolic 61–76; PULSE 95–111; RESP 18–23; TEMP 96.2–97.7; O2SAT 90–96
[2017-01-29] MEDS: ENOXAPARIN SODIUM 40 MG/0.4 ML SYRINGE SQ SCH ×2 (05:30→17:13)
[2017-01-29] MEDS: MEGESTROL ACETATE SUSP 400 MG/10 ML CUP PO SCH ×2 (08:05→20:19)
[2017-01-29] MEDS: BUDESONIDE-FORMOTEROL 160/4.5 MCG INHALER INH SCH ×2 (08:05→20:19)
[2017-01-29] MEDS: IRON SUCROSE INJ 200 MG in SODIUM CHLORIDE 0.9% INJ 100 ML IV SCH (08:05)
[2017-01-29] MEDS: SODIUM CHLORIDE 0.9% FLUSH 10 ML FLUSH IV FLUSH SCH (08:06)
[2017-01-29] MEDS: DOCUSATE SODIUM 50 MG/SENNA 8.6 MG TAB PO SCH ×2 (08:08→20:21)
--- NOTE | 2017-01-29 08:53 | HHI.PR ---
Subjective Remarks No current complaints at the moment. Receiving IV iron infusion No nausea or vomiting at the moment no shortness of breath or chest pain No dysuria or hematuria Hopefully can discharge to home tomorrow once can be set up with follow-up A.m. labs Physical therapy and occupational therapy to eval and treat 10-9 DC TO HOME TODAY AFTER IRON INFUSION WALK TEST IF NEEDS OXYGEN DC ON IT- 2 LITERS BY NASAL CANNULA C IF ABLE TO SET UP FOLLOW UP WITH HEMATOLOGY FOR OUTPATIENT CHEMO DW RN AND PT FINISH IRON INFUSION AND DC LATER TODAY Objective Vitals Vital Signs Date Time Temp Pulse Resp B/P (MAP) Pulse Ox O2 Delivery O2 Flow Rate FiO2 01/29/17 04:00 97.0 99 19 91/61 (71) 95 01/29/17 00:00 96.5 101 18 101/69 (80) 96 01/28/17 21:01 98 Nasal Cannula 2.00 01/28/17 20:00 97.2 94 19 90/61 (71) 95 01/28/17 16:00 98.4 80 20 101/77 (85) 100 01/28/17 12:00 97.7 90 20 106/75 (85) 98 I/O 01/28/17 01/28/17 01/28/17 01/29/17 01/29/17 01/29/17 07:00 15:00 23:00 07:00 15:00 23:00 Intake Total 120 ml 2550 ml 240 ml Output Total 150 ml 200 ml 150 ml Balance -30 ml 2350 ml 90 ml Intake Oral 120 ml 1440 ml 240 ml IV Total 1110 ml Output Urine Total 150 ml 200 ml 150 ml # Voids 1 Result Diagram: 01/28/17 0602 01/28/17 0602 Other Results Laboratory Tests Test 01/26/17 16:22 01/27/17 05:25 01/28/17 06:02 Urine Color YELLOW Urine Turbidity CLEAR Urine pH 5.5 Urine Specific [place] GREATER THAN 1.050 Urine Protein TRACE mg/dL Urine Glucose (UA) NEG mg/dL Urine Ketones TRACE mg/dL Urine Occult Blood NEG Urine Nitrite NEG Urine Bilirubin NEG Urine Urobilinogen LESS THAN 2.0 MG/DL Urine Leukocyte Esterase NEG Urine RBC LESS THAN 1 /hpf Urine WBC 1 /hpf Urine Mucus FEW /lpf Microscopic Urinalysis Comment CULT NOT INDICATED White Blood Count 11.0 TH/MM3 9.5 TH/MM3 Red Blood Count 3.37 MIL/MM3 3.18 MIL/MM3 Hemoglobin 8.5 GM/DL 8.2 GM/DL Hematocrit 27.7 % 26.0 % Mean Corpuscular Volume 82.4 FL 81.8 FL Mean Corpuscular Hemoglobin 25.2 PG 25.9 PG Mean Corpuscular Hemoglobin Concent 30.5 % 31.6 % Red Cell Distribution Width 19.5 % 19.9 % Platelet Count 429 TH/MM3 457 TH/MM3 Mean Platelet Volume 7.2 FL 7.5 FL Neutrophils (%) (Auto) 71.8 % 71.6 % Lymphocytes (%) (Auto) 5.9 % 6.0 % Monocytes (%) (Auto) 9.2 % 11.6 % Eosinophils (%) (Auto) 12.3 % 9.9 % Basophils (%) (Auto) 0.8 % 0.9 % Neutrophils # (Auto) 7.9 TH/MM3 6.8 TH/MM3 Lymphocytes # (Auto) 0.7 TH/MM3 0.6 TH/MM3 Monocytes # (Auto) 1.0 TH/MM3 1.1 TH/MM3 Eosinophils # (Auto) 1.4 TH/MM3 0.9 TH/MM3 Basophils # (Auto) 0.1 TH/MM3 0.1 TH/MM3 CBC Comment DIFF FINAL DIFF FINAL Differential Comment Blood Urea Nitrogen 5 MG/DL 5 MG/DL Creatinine 0.41 MG/DL 0.34 MG/DL Random Glucose 60 MG/DL 59 MG/DL Total Protein 5.9 GM/DL 5.5 GM/DL Calcium Level 7.3 MG/DL 6.9 MG/DL Sodium Level 136 MEQ/L 135 MEQ/L Potassium Level 3.3 MEQ/L 4.1 MEQ/L Chloride Level 105 MEQ/L 105 MEQ/L Carbon Dioxide Level 22.6 MEQ/L 23.2 MEQ/L Anion Gap 8 MEQ/L 7 MEQ/L Estimat Glomerular Filtration Rate 259 ML/MIN 322 ML/MIN Protein Corrected Calcium 7.9 MG/DL 7.7 MG/DL Magnesium Level 2.0 MG/DL Imaging Last Impressions Abdomen/Pelvis CT 01/26/17 0638 Signed Impressions: Service Date/Time: Thursday, January 26, 2017 07:59 - CONCLUSION: 1. Multiple metastatic lesions including both adrenal glands 2. Para-aortic/retrocrural and retroperitoneal adenopathy. 3. There is some prominent adenopathy in the left anterior pelvis which is intimately associated with bowel loops. 4. Multiple low-density liver lesions of uncertain etiology but metastatic disease cannot be excluded. 5. There is fluid in the pelvis could be related to free fluid versus loculated fluid collection. 6. Sclerotic bony metastasis. Timothy Lang MD Chest CT 01/26/17 0000 Signed Impressions: Service Date/Time: Thursday, January 26, 2017 07:59 - CONCLUSION: 1. Spiculated density right upper lobe again seen and unchanged. 2. Metastatic adenopathy throughout the hilar or mediastinum including periaortic adenopathy. 3. Bilateral metastatic adrenal masses. Multiple low-densities in the liver. 4. Sclerotic bony metastasis. 5. There does appear to be small amount of thrombus in the superior vena cava which was seen on previous study. Timothy Lang MD Objective Remarks GENERAL: Awake alert and oriented talkative and cooperative appears to be improved SKIN: Warm and dry. HEAD: Atraumatic. Normocephalic. EYES: Pupils equal and round. No scleral icterus. No injection or drainage. Extraocular muscles intact ENT: No nasal bleeding or discharge. Mucous membranes pink and moist. Tongue is midline NECK: Trachea midline. No JVD. Neck is supple CARDIOVASCULAR: Regular rate and rhythm. S1-S2 no S3 or S4 no heave or thrill or rub RESPIRATORY: No accessory muscle use. Coarse breath sounds bilaterally. Breath sounds equal bilaterally. GASTROINTESTINAL: Abdomen soft, non-tender, nondistended. Hepatic and splenic margins not palpable. MUSCULOSKELETAL: Extremities without clubbing, cyanosis, or edema. No obvious deformities. NEUROLOGICAL: Awake and alert. No obvious cranial nerve deficits. Motor grossly within normal limits. Five out of 5 muscle strength in the arms and legs. Normal speech. PSYCHIATRIC: Appropriate mood and affect; insight and judgment normal. Medications and IVs Current Medications Morphine Sulfate (Morphine Inj) 2 mg ONCE ONCE IV PUSH Last administered on 06:53; Start 01/26/17 at 06:45; Stop 01/26/17 at 06:46; Status DC Ondansetron HCl (Zofran Inj) 4 mg ONCE ONCE IVP Last administered on 06:54; Start 01/26/17 at 06:45; Stop 01/26/17 at 06:46; Status DC Sodium Chloride 1,000 ml @ 125 mls/hr Q8H IV Last administered on 01/26/17 06 :53; Start 01/26/17 at 06:38; Stop 01/26/17 at 11:26; Status DC Sodium Chloride (NS Flush) 2 ml UNSCH PRN IV FLUSH FLUSH AFTER USING IV ACCESS ; Start 01/26/17 at 06:45; Stop 01/26/17 at 11:27; Status DC Famotidine (Pepcid Inj) 20 mg ONCE ONCE IV PUSH Last administered on 06:54; Start 01/26/17 at 06:45; Stop 01/26/17 at 06:46; Status DC Iohexol (Omnipaque 350 Inj) 92 ml STK-MED ONCE IVCONTRAST Last administered on 01/26/17 06:01; Start 01/26/17 at 06:01; Stop 01/26/17 at 08:08; Status DC Sodium Chloride 1,000 ml @ 999 mls/hr BOLUS ONCE IV Last administered on 01/26 10:07; Start 01/26/17 at 10:00; Stop 01/26/17 at 11:00; Status DC Sodium Chloride 1,000 ml @ 100 mls/hr Q10H IV Last administered on 01/28/17 23:55; Start 01/26/17 at 12:00 Sodium Chloride (NS Flush) 2 ml UNSCH PRN IV FLUSH FLUSH AFTER USING IV ACCESS ; Start 01/26/17 at 11:15 Sodium Chloride (NS Flush) 2 ml BID IV FLUSH Last administered on 01/29/17 08: 06; Start 01/26/17 at 21:00 Acetaminophen (Tylenol) 650 mg Q4H PRN PO TEMP > 100.4; Start 01/26/17 at 11:15 Temazepam (Restoril) 15 mg HS PRN PO INSOMNIA Last administered on 01/28/17 23 :55; Start 01/26/17 at 11:15 Enoxaparin Sodium (Lovenox Inj) 40 mg Q24H SQ Last administered on 01/26/17 13 :07; Start 01/26/17 at 13:00; Stop 01/26/17 at 18:11; Status DC Naloxone HCl (Narcan Inj) 0.4 mg UNSCH PRN IV PUSH SEE LABEL COMMENTS; Start 01/26/17 at 11:15; Stop 01/26/17 at 17:46; Status DC Senna/Docusate Sodium (Darcy-Colace) 1 tab BID PO Last administered on 20:07; Start 01/26/17 at 21:00 Magnesium Hydroxide (Milk Of Magnesia Liq) 30 ml Q12H PRN PO MILD - MODERATE CONSTIPATION; Start 01/26/17 at 11:15 Sennosides (Senokot) 17.2 mg Q12H PRN PO MODERATE - SEVERE CONSTIPATION; Start 01/26/17 at 11:15 Bisacodyl (Dulcolax Supp) 10 mg DAILY PRN RECTAL SEVERE CONSITIPATION; Start 01/26/17 at 11:15 Lactulose (Lactulose Liq) 30 ml DAILY PRN PO SEVERE CONSITIPATION; Start at 11:15 Budesonide/ Formoterol Fumarate (Symbicort 160-4.5 Inh) 1 puff Q12HR INH Last administered on 01/29/17 08:05; Start 01/26/17 at 21:00 Albuterol/ Ipratropium (Duoneb Neb) 1 ampule Q4HR WHILE AWAKE NEB NEB Last administered on 01/28/17 21:00; Start 01/26/17 at 12:00 Acetaminophen/ Hydrocodone Bitart ([place] 5-325 Mg) 1 tab Q4H PRN PO PAIN SCALE 3 TO 5; Start 01/26/17 at 16:45 Acetaminophen/ Hydrocodone Bitart ([place] 10-325 Mg) 1 tab Q4H PRN PO PAIN SCALE 6 TO 10 Last administered on 01/28/17 15:55; Start 01/26/17 at 16:45 Morphine Sulfate (Morphine Inj) 2 mg Q4H PRN IV PUSH BREAKTHROUGH PAIN; Start 01/26/17 at 16:45 Naloxone HCl (Narcan Inj) 0.4 mg UNSCH PRN IV PUSH SEE LABEL COMMENTS; Start 01/26/17 at 16:45 Enoxaparin Sodium (Lovenox Inj) 40 mg Q12H SQ Last administered on 01/29/17 05 :30; Start 01/26/17 at 18:00 Iron Sucrose 200 mg/Sodium Chloride 110 ml @ 110 mls/hr DAILY IV Last administered on 01/29/17 08:05; Start 01/27/17 at 09:00; Stop 01/29/17 at 09:59 Megestrol Acetate (Megace Liq) 400 mg DAILY PO Last administered on 01/28/17 08:16; Start 01/27/17 at 10:00; Stop 01/28/17 at 08:47; Status DC Megestrol Acetate (Megace Liq) 400 mg BID PO Last administered on 01/29/17 08: 05; Start 01/28/17 at 09:00 Urinary Catheter: No Vascular Central Line Catheter: No A/P Problem List: (1) Metastatic cancer ICD Code: C79.9 - Secondary malignant neoplasm of unspecified site Status: Acute (2) Lung cancer ICD Code: C34.90 - Malignant neoplasm of unspecified part of unspecified bronchus or lung (3) Abdominal pain ICD Code: R10.9 - Unspecified abdominal pain Status: Acute Assessment and Plan Mr. Zeng is 61 years old, with previous history of lung cancer. He was recently admitted to [facility] on 01/05/17 for respiratory distress, hypoxia, lung cancer, hyponatremia, hypo-calcium via, and rhabdomyolysis. Metastatic adenocarcinoma of the lung on ketruda, palliative chemo SVC syndrome with SVC thrombus, start anticoagulation per Dr Chavez, check FOBT before starting anticoag Anemia: Start iron supplement IV - am labs Abdominal pain, controlled with opioids - po meds only Nausea/vomiting, improving Diarrhea, improved -Admitted to inpatient service -Oncology consult. patient with lung Ca with mets , will also consult palliative care for goals of care -IV fluids -Zofran 4 mg by mouth every 6 hours when necessary -Pain management- po meds only -Palliative care consult -Labs in a.m. -Symbicort 1 puff every 12 hours -DuoNeb's every 4 hours while awake -Physical therapy consult -Case management consult Decrease appetite, severe prot fely malnutrition. 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 Add megace, add multivit and ensure to diet. consult stripper soft plastic DVT prophylaxis -Lovenox 40 mg sq every 24 hours -SCDs/MARTHA hose Diet -Regular as danielito Physical therapy and occupational therapy to eval and treat consult case management regarding discharge OXYGEN 2 LITERS BY NASAL CANNULA IF FAILS WALK TEST DC TO HOME TODAY HHC IF ABLE TO GET FOLLOW UP WITH ONCOLOGY FOR OUTPT CHEMO Discharge Planning DC TO HOME IF CASE MANAGEMENT CAN SET UP OXYGEN [facility] IF ABLE TO OBTAIN Problem Qualifiers (1) Lung cancer: Qualified Codes: C34.11 - Malignant neoplasm of upper lobe, right bronchus or lung (2) Abdominal pain: Qualified Codes: R10.84 - Generalized abdominal pain Bang Stubbs DO Jan 29, 2017 08:53
[2017-01-29] MEDS ORDERED: SENN1TAB PO (09:02)
[2017-01-29] MEDS ORDERED: MEGE40SU PO (09:02)
[2017-01-29] MEDS ORDERED: OXYGENDME NAS.CANULA (09:02)
[2017-01-29] MEDS ORDERED: Lactulose Liq PO (09:02)
[2017-01-29] MEDS ORDERED: IPRASOL NEB (09:02)
[2017-01-29] MEDS ORDERED: SYMB160A INH (09:02)
[2017-01-29] MEDS ORDERED: HYDR-3583 PO (09:02)
[2017-01-29] MEDS ORDERED: VENTAER INH (09:02)
[2017-01-29] MEDS ORDERED: NEBULIZER1 MI1 (09:02)
[2017-01-29] MEDS ORDERED: NEBU1EAC (09:02)
--- NOTE | 2017-01-29 09:04 | HHI.FF ---
Face to Face Verification Diagnosis: (1) Hypocalcemia (2) Respiratory distress (3) Hyponatremia (4) Rhabdomyolysis (5) Pulmonary embolism (6) Metastatic cancer (7) Abdominal pain (8) Metastatic cancer to intra-abdominal lymph nodes (9) Lung cancer (10) Hypoxia Physical Therapy Order: Evaluate and Treat, Improve ambulation, Strength and gait training Occupational Therapy Order: Evaluate and Treat, Gross motor coordination, Fine motor coordination Home Health Nursing Order: Medical education Signs/symptoms of disease process Oxygen administration education Nursing assessment with vital signs Home Health Aide Order: To Assist In: Bathing and personal care, regulatory affairs intern and meal prep I have seen patient Ta Zeng on 01/29/17. My clinical findings support the need for the requested home health care services because: Patient has SOB Deconditioned w/ increased weakness I certify that my clinical findings support that this patient is homebound because: Hx COPD- exertion dyspnea/weakness Unsteady gait/balance Bang Stubbs DO Jan 29, 2017 09:04
[2017-01-29] MEDS ORDERED: FERR200T PO (09:05)
--- NOTE | 2017-01-29 09:07 | HHI.DS ---
Discharge Summary Admission Date Jan 26, 2017 at 11:30 Discharge Date: Jan 29, 2017 Admitting Diagnosis widespread metastatic disease, abdominal pain (1) Metastatic cancer ICD Code: C79.9 - Secondary malignant neoplasm of unspecified site Diagnosis: Principal Status: Acute (2) Lung cancer ICD Code: C34.90 - Malignant neoplasm of unspecified part of unspecified bronchus or lung (3) Abdominal pain ICD Code: R10.9 - Unspecified abdominal pain Diagnosis: Secondary Status: Acute Procedures NONE Brief History - From Admission Mr. Zeng is 61 years old, with previous history of lung cancer. He was recently admitted to [facility] on 01/05/17 for respiratory distress, hypoxia, lung cancer, hyponatremia, hypo-calcium via, and rhabdomyolysis. Mr. Zeng said he began experiencing abdominal pain, nausea and vomiting at 1 AM this morning; since that time he stated he experienced 5-10 bouts of vomiting. As he was unable to get his condition under control he came to [facility] for evaluation and management of his condition. Imaging obtained while patient was in the emergency department indicated metastatic cancer having spread to both adrenal glands, para-aortic retroperitoneal areas evidenced adenopathy, adenopathy of left anterior pelvis and bowel loops, liver, sclerotic bony metastasis. Labs indicated that patient's normocytic anemia had worsened. At time of interview, Mr. Zeng was encountered in his hospital room laying a bed and reported having abdominal pain, nausea, feeling cold/chills, having a cough, and having occasional wheezing. He spoke of having 2-3 bouts of bloodless diarrhea as well as having decreased appetite with weight loss. He stated that he has been using a walker in order to ambulate. Mr. Zeng also reported having insomnia in which she may sleep perhaps only 2 hours at a time and may sleep a total of 6 hours per 24. CBC/BMP: 01/28/17 0602 01/28/17 0602 Significant Findings Laboratory Tests Test 01/26/17 16:22 01/27/17 05:25 01/28/17 06:02 Urine Specific [place] GREATER THAN 1.050 Urine Ketones TRACE mg/dL (NEG) Urine Mucus FEW /lpf (OCC) Red Blood Count 3.37 MIL/MM3 (4.50-5.90) 3.18 MIL/MM3 (4.50-5.90) Hemoglobin 8.5 GM/DL (13.0-17.0) 8.2 GM/DL (13.0-17.0) Hematocrit 27.7 % (39.0-51.0) 26.0 % (39.0-51.0) Mean Corpuscular Hemoglobin 25.2 PG (27.0-34.0) 25.9 PG (27.0-34.0) Mean Corpuscular Hemoglobin Concent 30.5 % (32.0-36.0) 31.6 % (32.0-36.0) Red Cell Distribution Width 19.5 % (11.6-17.2) 19.9 % (11.6-17.2) Neutrophils (%) (Auto) 71.8 % (16.0-70.0) 71.6 % (16.0-70.0) Lymphocytes (%) (Auto) 5.9 % (9.0-44.0) 6.0 % (9.0-44.0) Monocytes (%) (Auto) 9.2 % (0.0-8.0) 11.6 % (0.0-8.0) Eosinophils (%) (Auto) 12.3 % (0.0-4.0) 9.9 % (0.0-4.0) Neutrophils # (Auto) 7.9 TH/MM3 (1.8-7.7) Lymphocytes # (Auto) 0.7 TH/MM3 (1.0-4.8) 0.6 TH/MM3 (1.0-4.8) Monocytes # (Auto) 1.0 TH/MM3 (0-0.9) 1.1 TH/MM3 (0-0.9) Eosinophils # (Auto) 1.4 TH/MM3 (0-0.4) 0.9 TH/MM3 (0-0.4) Blood Urea Nitrogen 5 MG/DL (7-18) 5 MG/DL (7-18) Creatinine 0.41 MG/DL (0.60-1.30) 0.34 MG/DL (0.60-1.30) Random Glucose 60 MG/DL (74-106) 59 MG/DL (74-106) Total Protein 5.9 GM/DL (6.4-8.2) 5.5 GM/DL (6.4-8.2) Calcium Level 7.3 MG/DL (8.5-10.1) 6.9 MG/DL (8.5-10.1) Potassium Level 3.3 MEQ/L (3.5-5.1) Protein Corrected Calcium 7.9 MG/DL (8.5-10.1) 7.7 MG/DL (8.5-10.1) Platelet Count 457 TH/MM3 (150-450) Sodium Level 135 MEQ/L (136-145) Imaging Last Impressions Abdomen/Pelvis CT 01/26/17 0638 Signed Impressions: Service Date/Time: Thursday, January 26, 2017 07:59 - CONCLUSION: 1. Multiple metastatic lesions including both adrenal glands 2. Para-aortic/retrocrural and retroperitoneal adenopathy. 3. There is some prominent adenopathy in the left anterior pelvis which is intimately associated with bowel loops. 4. Multiple low-density liver lesions of uncertain etiology but metastatic disease cannot be excluded. 5. There is fluid in the pelvis could be related to free fluid versus loculated fluid collection. 6. Sclerotic bony metastasis. Timothy Lang MD Chest CT 01/26/17 0000 Signed Impressions: Service Date/Time: Thursday, January 26, 2017 07:59 - CONCLUSION: 1. Spiculated density right upper lobe again seen and unchanged. 2. Metastatic adenopathy throughout the hilar or mediastinum including periaortic adenopathy. 3. Bilateral metastatic adrenal masses. Multiple low-densities in the liver. 4. Sclerotic bony metastasis. 5. There does appear to be small amount of thrombus in the superior vena cava which was seen on previous study. Timothy Lang MD PE at Discharge GENERAL: Awake alert and oriented talkative and cooperative appears to be improved SKIN: Warm and dry. HEAD: Atraumatic. Normocephalic. EYES: Pupils equal and round. No scleral icterus. No injection or drainage. Extraocular muscles intact ENT: No nasal bleeding or discharge. Mucous membranes pink and moist. Tongue is midline NECK: Trachea midline. No JVD. Neck is supple CARDIOVASCULAR: Regular rate and rhythm. S1-S2 no S3 or S4 no heave or thrill or rub RESPIRATORY: No accessory muscle use. Coarse breath sounds bilaterally. Breath sounds equal bilaterally. GASTROINTESTINAL: Abdomen soft, non-tender, nondistended. Hepatic and splenic margins not palpable. MUSCULOSKELETAL: Extremities without clubbing, cyanosis, or edema. No obvious deformities. NEUROLOGICAL: Awake and alert. No obvious cranial nerve deficits. Motor grossly within normal limits. Five out of 5 muscle strength in the arms and legs. Normal speech. PSYCHIATRIC: Appropriate mood and affect; insight and judgment normal. Pt update on day of discharge No current complaints at the moment. Receiving IV iron infusion No nausea or vomiting at the moment no shortness of breath or chest pain No dysuria or hematuria Hopefully can discharge to home tomorrow once can be set up with follow-up A.m. labs Physical therapy and occupational therapy to eval and treat 10-9 DC TO HOME TODAY AFTER IRON INFUSION WALK TEST IF NEEDS OXYGEN DC ON IT- 2 LITERS BY NASAL CANNULA [facility] IF ABLE TO SET UP FOLLOW UP WITH HEMATOLOGY FOR OUTPATIENT CHEMO DW RN AND PT FINISH IRON INFUSION AND DC LATER TODAY Hospital Course Mr. Zeng is 61 years old, with previous history of lung cancer. He was recently admitted to [facility] on 01/05/17 for respiratory distress, hypoxia, lung cancer, hyponatremia, hypo-calcium via, and rhabdomyolysis. Mr. Zeng said he began experiencing abdominal pain, nausea and vomiting at 1 AM this morning; since that time he stated he experienced 5-10 bouts of vomiting. As he was unable to get his condition under control he came to [facility] for evaluation and management of his condition. Imaging obtained while patient was in the emergency department indicated metastatic cancer having spread to both adrenal glands, para-aortic retroperitoneal areas evidenced adenopathy, adenopathy of left anterior pelvis and bowel loops, liver, sclerotic bony metastasis. Labs indicated that patient's normocytic anemia had worsened. At time of interview, Mr. Zeng was encountered in his hospital room laying a bed and reported having abdominal pain, nausea, feeling cold/chills, having a cough, and having occasional wheezing. He spoke of having 2-3 bouts of bloodless diarrhea as well as having decreased appetite with weight loss. He stated that he has been using a walker in order to ambulate. Mr. Zeng also reported having insomnia in which she may sleep perhaps only 2 hours at a time and may sleep a total of 6 hours per 24. No current complaints at the moment. Receiving IV iron infusion No nausea or vomiting at the moment no shortness of breath or chest pain No dysuria or hematuria Hopefully can discharge to home tomorrow once can be set up with follow-up A.m. labs Physical therapy and occupational therapy to eval and treat 10-9 DC TO HOME TODAY AFTER IRON INFUSION WALK TEST IF NEEDS OXYGEN DC ON IT- 2 LITERS BY NASAL CANNULA [facility] IF ABLE TO SET UP FOLLOW UP WITH HEMATOLOGY FOR OUTPATIENT CHEMO DW RN AND PT FINISH IRON INFUSION AND DC LATER TODAY Pt Condition on Discharge: Fair Discharge Disposition: Disch w/ Home Health Serv Discharge Time: > 30 minutes Discharge Instructions DIET: Follow Instructions for: Heart Healthy Diet Activities you can perform: Regular-No Restrictions Other Activity Instructions: NO SMOKING NO ALCOHOL Follow up Referrals: Internal Medicine - 1 Week Oncology - 1 Week with Phillip Chavez MD PCP Follow-up - 1 Week New Medications: Ferrous Sulfate (Feosol) 325 Mg (65 Mg Iron) Tab 200 MG PO BIDPC for Nutritional Supplement, #60 TAB 0 Refills Nebulizer (Nebulizer) 1 Mis Mis EA .ROUTE DIRECTED for Breathing Treatment, #1 0 Refills Nebulizer Accessories (Adult Aerosol Mask) 1 Each Each UNIT, #1 Oxygen (O2) (Oxygen (O2)) Device LITER RYAN.CANULA CONTINUOUS for Prevent Hypoxemia, #2 Oxygen Concentrator Portable Gaseous 2 L/min via Nasal Canula Continuous For 99 months Hydrocodone-Acetaminophen (Hydrocodone-Acetaminophen) 10-325 mg Tab 1 TAB PO Q4H PRN for PAIN SCALE 6 TO 10, #60 TAB Ipratropium-Albuterol Neb (Duoneb) 0.5-2.5 Mg/3 Ml Neb 1 AMPULE NEB Q4HR WHILE AWAKE NEB for Shortness of Breath, #180 ML Megestrol Liq (Megestrol Liq) 40 Mg/Ml Susp 400 MG PO BID for Nutritional Supplement, #600 ML Sennosides-Docusate Sodium (Senna Plus 8.6-50 mg) 8.6 Mg-50 Mg Tab 2 TAB PO BID for Constipation, #120 TAB [Lactulose Liq] () 30 ML SYRP 30 ML PO DAILY PRN for SEVERE CONSITIPATION, #900 ML Changed Medications: Albuterol 18 GM Inh (Ventolin Hfa 18 GM Inh) 90 Mcg/Act Aer 2 PUFF INH Q4H PRN for SHORTNESS OF BREATH, #1 INHALER 0 Refills (Changed from: 1 PUFF) Continued Medications: Budesonide-Formoterol Inh (Symbicort Inh) 160-4.5 Mcg/Act Aero 1 PUFF INH Q12HR for Shortness of Breath, #1 INHALER 0 Refills (This prescription has been renewed) Bang Stubbs DO Jan 29, 2017 09:07
[2017-01-29] MEDS: RESP: ALBUTEROL 2.5 MG/IPRATROPIUM 0.5 MG NEB (SCH) NEB ×4 (09:11→20:38)
[2017-01-29 14:28] LABS: AUTOMATED NEUTROPHIL # 6.6 TH/MM3 (1.8-7.7); BASOPHIL # 0.1 TH/MM3 (0-0.2); BASOPHIL % 0.8 % (0.0-2.0); EOSINOPHIL # 1.3 TH/MM3 (0-0.4); EOSINOPHIL % 13.4 % (0.0-4.0); HEMATOCRIT 25.9 % (39.0-51.0); LYMPH % 6.5 % (9.0-44.0); LYMPHOCYTE # 0.6 TH/MM3 (1.0-4.8); MEAN CELL VOLUME 82.2 FL (80.0-100.0); MEAN CORPUSCULAR HEMOGLOBIN 25.1 PG (27.0-34.0); MEAN CORPUSCULAR HGB CONC 30.6 % (32.0-36.0); MONO % 8.7 % (0.0-8.0); NEUT % 70.6 % (16.0-70.0); PLATELET COUNT 464 TH/MM3 (150-450); RED BLOOD COUNT 3.16 MIL/MM3 (4.50-5.90); RED CELL DISTRIBUTION WIDTH 19.8 % (11.6-17.2); WHITE BLOOD COUNT 9.4 TH/MM3 (4.0-11.0)
[2017-01-29 14:32] LABS: HEMO FLAGS AUTO DIFF
[2017-01-29] MEDS: ACETAMINOPHEN/HYDROcodone 325 MG/10 MG TAB PO PRN (14:34)
[2017-01-29 15:20] LABS: ALKALINE PHOSPHATASE 84 U/L (45-117); ALT (GPT) 14 U/L (12-78); ANION GAP 8 MEQ/L (5-15); AST (GOT) 15 U/L (15-37); BICARBONATE 24.8 MEQ/L (21.0-32.0); BLOOD UREA NITROGEN 4 MG/DL (7-18); CALCIUM-PROTEIN CORRECTED 8.1 MG/DL (8.5-10.1); CHLORIDE 103 MEQ/L (98-107); FREE T4 1.23 NG/DL (0.76-1.46); GLOMERULAR FILTRATION RATE 283 ML/MIN (>89); POTASSIUM 3.4 MEQ/L (3.5-5.1); SODIUM (NA) 136 MEQ/L (136-145); TOTAL BILIRUBIN ADULT 0.3 MG/DL (0.2-1.0)
[2017-01-29 16:01] LABS: BANDS 6 % (0-6); CORRECTED NUCLEATED RBC 4 /100 WBC (0-0); EOSINOPHILS 5 % (0-4); NEUTROPHIL # MANUAL DIFF 7.6 TH/MM3 (1.8-7.7); POLYS (SEG NEUTROPHILS) 75 % (16-70); WBC DIFF SAMPLE 100
[2017-01-29 16:03] LABS: BURR CELLS 1+ (NORMAL); KERATOCYTES OCC (NORMAL); OVALOCYTES 1+ (NORMAL); PLATELET ESTIMATE SMEAR NORMAL (NORMAL); PLATELET MORPHOLOGY NORMAL (NORMAL); SCAN/DIFF FINAL DIFF MANUAL
[2017-01-29] MEDS: SODIUM CHLOR 0.9% 1000 ML INJ 1,000 ML IV SCH (16:17)
[2017-01-29 16:37] LABS: HEMOGLOBIN A1a 1.6 %; HEMOGLOBIN A1b 1.5 %; HEMOGLOBIN Ao 87.1 %; HEMOGLOBIN LA1C 1.6 %; HEMOGLOBIN P3 3.2 %
== END 2017-01-29 20:47 | disposition home or self-care (01) | DRG 181 ==
LOC: NEPE 06:00 → NEDA 11:30 → HOCA 15:08
PROVIDERS: ADMIT Hospitalist; ATTEND Hospitalist
DX: C34.11 Malignant neoplasm of upper lobe, right bronchus or lung (principal); C79.71 Secondary malignant neoplasm of right adrenal gland; R64 Cachexia; C77.1 Secondary and unspecified malignant neoplasm of intrathoracic lymph nodes; C78.7 Secondary malignant neoplasm of liver and intrahepatic bile duct; E46 Unspecified protein-calorie malnutrition; I82.210 Acute embolism and thrombosis of superior vena cava; C77.2 Secondary and unspecified malignant neoplasm of intra-abdominal lymph nodes; C79.51 Secondary malignant neoplasm of bone; Z68.1 Body mass index [BMI] 19.9 or less, adult; I87.1 Compression of vein; C79.72 Secondary malignant neoplasm of left adrenal gland; D64.9 Anemia, unspecified; G47.00 Insomnia, unspecified; Z87.891 Personal history of nicotine dependence; M41.9 Scoliosis, unspecified
CPT/HCPCS: 71260; 74177; 80048; 80053; 81001; 82728; 83036; 83540; 83550; 83605; 83690; 83735; 84100; 84155; 84439; 84443; 85007; 85025; 85027; 93005; 94620; 94640; 94664; 96361; 96374; 96375; J1650; J1756; J2270; J2405; J7030; Q9967

== ENCOUNTER 2017-02-09 04:46 | Inpatient (IN) | payer SELFPAY ==
[~2017-02-09] VITALS: Ht 154.9 cm; Wt 40.1 kg
[~2017-02-09 04:46] MED LIST changes: -APIX5TAB PO; +FERR200T PO; -HYDR-3516 PO; +HYDR-3583 PO; +IPRASOL NEB; -LEVA500T20 PO; +Lactulose Liq PO; +MEGE40SU PO; +NEBU1EAC; +NEBULIZER1 MI1; +OXYGENDME NAS.CANULA; +SENN1TAB PO
[2017-02-09 04:52] VITALS: BP 144/83; PULSE 101; RESP 20; TEMP 98.6; O2SAT 96
--- NOTE | 2017-02-09 05:28 | PD ---
HPI Chief Complaint: Abdominal Pain Time Seen by Provider: 04:58 Travel History International Travel<30 days: No Contact w/Intl Traveler<30days: No Traveled to known affect area: No History of Present Illness HPI Patient is a 61-year-old male presents emergency department for evaluation of lower quadrant abdominal pain as well as dark tarry stools. Patient was recently diagnosed with stage IV metastatic lung cancer. Patient's been having pain and dark stools for the past few hours. States pain is cramping, nagging, mild, no radiation, associated signs symptoms as above, context as above. Patient also had a transient episode of hypoglycemia with a glucose apparently 11 enroute is not on any antihyperglycemics. PFSH Past Medical History Hx Anticoagulant Therapy: Yes (last pill three days) Arthritis: Yes Asthma: No Cancer: Yes (lung ) Cardiovascular Problems: No Chemotherapy: Yes COPD: No Diminished Hearing: No Endocrine: No GERD: No Genitourinary: No Hiatal Hernia: No Immune Disorder: No Kidney Stones: No Musculoskeletal: No Neurologic: No Psychiatric: No Reproductive: No Respiratory: Yes (stage 4 Lung cancer) Renal Failure: No Sleep Apnea: No Ulcer: No Past Surgical History Surgical History: No Previous Surgery Other Surgery: No Social History Alcohol Use: No Tobacco Use: No Substance Use: No Allergies-Medications (Allergen,Severity, Reaction): Coded Allergies: No Known Allergies (Unverified , 02/09/17) Reported Meds & Prescriptions Reported Meds & Active Scripts Active Feosol (Ferrous Sulfate) 325 Mg (65 Mg Iron) Tab 200 Mg PO BIDPC Oxygen (O2) Device Liter RYAN.CANULA CONTINUOUS Oxygen Concentrator Portable Gaseous 2 L/min via Nasal Canula Continuous For 99 months Adult Aerosol Mask (Nebulizer Accessories) 1 Each Each Unit Nebulizer 1 Mis Mis Ea .ROUTE DIRECTED Senna Plus 8.6-50 mg (Sennosides-Docusate Sodium) 8.6 Mg-50 Mg Tab 2 Tab PO BID [Lactulose Liq] 30 ML Syrp 30 Ml PO DAILY PRN Hydrocodone-Acetaminophen 10-325 mg Tab 1 Tab PO Q4H PRN Duoneb (Ipratropium-Albuterol Neb) 0.5-2.5 Mg/3 Ml Neb 1 Ampule NEB Q4HR WHILE AWAKE NEB Megestrol Liq (Megestrol Acetate) 40 Mg/Ml Susp 400 Mg PO BID Symbicort Inh (Budesonide/Formoterol Fumarate) 160-4.5 Mcg/Act Aero 1 Puff INH Q12HR Ventolin Hfa 18 GM Inh (Albuterol Sulfate) 90 Mcg/Act Aer 2 Puff INH Q4H PRN Review of Systems Except as stated in HPI: all other systems reviewed are Neg Physical Exam Narrative GENERAL: Well-developed, under nourished, quite pleasant male with an Afro who appears much older than stated age. SKIN: Focused skin assessment warm/dry. HEAD: Atraumatic. Normocephalic. EYES: Pupils equal and round. No scleral icterus. No injection or drainage. ENT: No nasal bleeding or discharge. Mucous membranes pink and moist. NECK: Trachea midline. No JVD. CARDIOVASCULAR: Regular rate and rhythm. No murmur appreciated. RESPIRATORY: No accessory muscle use. Clear to auscultation. Breath sounds equal bilaterally. GASTROINTESTINAL: Abdomen soft, non-tender, nondistended. Hepatic and splenic margins not palpable. Patient is a palpable abdominal mass in the left lower quadrant. MUSCULOSKELETAL: No obvious deformities. No clubbing. No cyanosis. No edema. NEUROLOGICAL: Awake and alert. No obvious cranial nerve deficits. Motor grossly within normal limits. Normal speech. PSYCHIATRIC: Appropriate mood and affect; insight and judgment normal. Data Data Last Documented VS Vital Signs Date Time Temp Pulse Resp B/P (MAP) Pulse Ox O2 Delivery O2 Flow Rate FiO2 02/09/17 07:35 105 17 126/83 (97) 100 Nasal Cannula 2.00 02/09/17 04:52 98.6 Orders Orders Complete Blood Count With Diff (02/09/17 05:25) Comprehensive Metabolic Panel (02/09/17 05:25) Lipase (02/09/17 05:25) Prothrombin Time / Inr (Pt) (02/09/17 05:25) Act Partial Throm Time (Ptt) (02/09/17 05:25) Ecg Monitoring (02/09/17 05:25) Iv Access Insert/Monitor (02/09/17 05:25) Oximetry (02/09/17 05:25) Sodium Chloride 0.9% Flush (Ns Flush) (02/09/17 05:30) Sodium Chlorid 0.9% 500 Ml Inj (Ns 500 M (02/09/17 05:30) Ondansetron Inj (Zofran Inj) (02/09/17 07:00) Electrocardiogram (02/09/17 05:05) Admit Order (Ed Use Only) (02/09/17 ) Labs Laboratory Tests Test 02/09/17 05:15 White Blood Count 13.4 TH/MM3 Red Blood Count 3.53 MIL/MM3 Hemoglobin 9.1 GM/DL Hematocrit 29.6 % Mean Corpuscular Volume 83.8 FL Mean Corpuscular Hemoglobin 25.8 PG Mean Corpuscular Hemoglobin Concent 30.8 % Red Cell Distribution Width 22.1 % Platelet Count 247 TH/MM3 Mean Platelet Volume 7.2 FL Neutrophils (%) (Auto) 76.7 % Lymphocytes (%) (Auto) 7.4 % Monocytes (%) (Auto) 5.0 % Eosinophils (%) (Auto) 10.0 % Basophils (%) (Auto) 0.9 % Neutrophils # (Auto) 10.3 TH/MM3 Lymphocytes # (Auto) 1.0 TH/MM3 Monocytes # (Auto) 0.7 TH/MM3 Eosinophils # (Auto) 1.3 TH/MM3 Basophils # (Auto) 0.1 TH/MM3 CBC Comment DIFF FINAL Differential Comment Prothrombin Time 17.4 SEC Prothromb Time International Ratio 1.5 RATIO Activated Partial Thromboplast Time 36.4 SEC Blood Urea Nitrogen 12 MG/DL Creatinine 0.59 MG/DL Random Glucose 100 MG/DL Total Protein 4.9 GM/DL Albumin 1.9 GM/DL Calcium Level 7.3 MG/DL Alkaline Phosphatase 94 U/L Aspartate Amino Transf (AST/SGOT) 34 U/L Alanine Aminotransferase (ALT/SGPT) 16 U/L Total Bilirubin 0.4 MG/DL Sodium Level 130 MEQ/L Potassium Level 4.3 MEQ/L Chloride Level 98 MEQ/L Carbon Dioxide Level 23.7 MEQ/L Anion Gap 8 MEQ/L Estimat Glomerular Filtration Rate 170 ML/MIN Protein Corrected Calcium 8.5 MG/DL Lipase 60 U/L MDM Medical Decision Making Medical Screen Exam Complete: Yes Emergency Medical Condition: Yes Differential Diagnosis GI bleeding, metastatic disease, coagulopathy, anemia, metastatic disease. Narrative Course Patient roomed emergency department, my impression of this patient is a patient with very medical little metabolic reserve with likely metastatic disease of unknown origin with multiple lesions in the abdomen and chest who is anemic. His rectal exam did show gross black melena, he is on iron pills and is quite possible that that is leading to this dark stool however it is very liquidy. On occult stool card it does turn positive. Patient is anemic, has an INR 1.5. I spent an extended period of time at the patient's bedside discussing options including hospice. He and his family are highly against hospice at this time. They are currently awaiting his Medicaid status so that he can begin chemotherapy in consultations with oncology. At this time given his intentions to completely fight he does meet inpatient criteria for melena and anemia. Diagnosis Primary Impression: GI bleeding Additional Impression: Coagulopathy Admitting Information Admitting Physician Requests: Admit Condition: Stable Ta Nieto MD Feb 09, 2017 05:28
[2017-02-09] MEDS ORDERED: SODIUM CHLORIDE 0.9% FLUSH 10 ML FLUSH IVF PRN (05:30)
[2017-02-09] MEDS ORDERED: SODIUM CHLORID 0.9% 500 ML INJ 500 ML IV ONE (05:30)
[2017-02-09 05:44] LABS: AUTOMATED NEUTROPHIL # 10.3 TH/MM3 (1.8-7.7); BASOPHIL # 0.1 TH/MM3 (0-0.2); BASOPHIL % 0.9 % (0.0-2.0); EOSINOPHIL # 1.3 TH/MM3 (0-0.4); HEMATOCRIT 29.6 % (39.0-51.0); HEMO FLAGS DIFF FINAL; LYMPH % 7.4 % (9.0-44.0); MEAN CELL VOLUME 83.8 FL (80.0-100.0); MEAN CORPUSCULAR HEMOGLOBIN 25.8 PG (27.0-34.0); MEAN CORPUSCULAR HGB CONC 30.8 % (32.0-36.0); NEUT % 76.7 % (16.0-70.0); PLATELET COUNT 247 TH/MM3 (150-450); RED BLOOD COUNT 3.53 MIL/MM3 (4.50-5.90); RED CELL DISTRIBUTION WIDTH 22.1 % (11.6-17.2); WHITE BLOOD COUNT 13.4 TH/MM3 (4.0-11.0)
[2017-02-09 05:57] LABS: APTT (PATIENT) 36.4 SEC (24.3-30.1); INTERNATIONAL NORMALIZED RATIO 1.5 RATIO; PROTHROMBIN TIME - PATIENT 17.4 SEC (9.8-11.6)
[2017-02-09 06:19] LABS: BICARBONATE 23.7 MEQ/L (21.0-32.0); CALCIUM-PROTEIN CORRECTED 8.5 MG/DL (8.5-10.1); POTASSIUM 4.3 MEQ/L (3.5-5.1); TOTAL BILIRUBIN ADULT 0.4 MG/DL (0.2-1.0)
[2017-02-09] MEDS ORDERED: ONDANSETRON HCL 4 MG/2 ML VIAL IV PUSH ONE (07:00)
[2017-02-09 07:35] VITALS: BP 126/83; PULSE 105; RESP 17; O2SAT 100
[2017-02-09] MEDS ORDERED: MAGNESIUM HYDROXIDE SUSP 30 ML CUP PO PRN (08:00)
[2017-02-09] MEDS ORDERED: ACETAMINOPHEN/HYDROcodone 325 MG/5 MG TAB PO PRN (08:00)
[2017-02-09] MEDS ORDERED: ACETAMINOPHEN 325 MG TAB PO PRN ×2 (08:00)
[2017-02-09] MEDS ORDERED: SODIUM CHLORIDE 0.9% FLUSH 10 ML FLUSH IV FLUSH PRN (08:00)
[2017-02-09] MEDS ORDERED: ONDANSETRON HCL 4 MG/2 ML VIAL IVP PRN (08:00)
[2017-02-09] MEDS: PANTOPRAZOLE SODIUM 40 MG VIAL IV PUSH SCH ×2 (09:13→21:01)
[2017-02-09] MEDS: SODIUM CHLORIDE 0.9% FLUSH 10 ML FLUSH IV FLUSH SCH ×2 (09:15→21:00)
--- NOTE | 2017-02-09 09:31 | PD.CONS ---
HPI History of Present Illness This is a 61 year old year old male with a history of metastatic adenocarcinoma of the lung with extensive metastasis to the mediastinal lymph nodes, left supraclavicular lymph nodes,bilateral adrenal glands, and liver, who presented to the emergency room for evaluation of black tarry stools. He was diagnosed with lung cancer in November 2016, at which time he was hospitalized at 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 He was started on palliative radiation, but was not able to be started on outpatient palliative systemic therapy with Dr. Arana, secondary to lack of insurance. He was then hospitalized at this facility earlier this month and was seen by Dr. Chavez, who had planned on starting chemotherapy as outpatient. The patient reports that he has not followed up with Dr. Chavez yet and has not started started chemotherapy. He reports that he started having black tarry stools with lower abdominal cramping over the weekend. He denies any nausea or vomiting and reports that his appetite has been fair. He cannot identify any aggravating or alleviating factors for his symptoms. He has occasional heartburn or reflux, but denies any nausea, vomiting or hematemesis. He denies any history of peptic ulcer disease. He states that he takes a blood thinner but he does not recall what this is. I do not see it on his medication list, nor on his discharge summary dated1. H/H was 9.1/29.6 on admission, platelets 247, and PT 17.4, INR 1.5, APTT 36.4. He was eating a clear liquid breakfast tray when I saw him at 0945. (Kayla Iraheta) PFSH Past Medical History Metastatic adenocarcinoma of the lung SVC syndrome SVC thrombus Extensive spinal scoliosis with deformity of the spine Past Surgical History Biopsy of lung mass/mediastinal lymph node mass (Kayla Iraheta) Coded Allergies: No Known Allergies (Unverified , 02/09/17) Medications Allergies Coded Allergies Type Severity Reaction Last Updated Verified No Known Allergies 02/09/17 No Active Scripts Medications Dose Route/Sig Max Daily Dose Days Date Category Dose Instructions Feosol (Ferrous Sulfate) 325 Mg (65 Mg Iron) Tab 200 Mg PO BIDPC 01/29/17 Rx Oxygen (O2) Device Liter RYAN.CANULA CONTINUOUS 01/29/17 Rx Oxygen Concentrator Portable Gaseous 2 L/min via Nasal Canula Continuous For 99 months Adult Aerosol Mask (Nebulizer Accessories) 1 Each Each Unit 01/29/17 Rx Nebulizer 1 Mis Mis Ea .ROUTE DIRECTED 01/29/17 Rx Senna Plus 8.6-50 mg (Sennosides-Docusate Sodium) 8.6 Mg-50 Mg Tab 2 Tab PO BID 01/29/17 Rx [Lactulose Liq] 30 ML Syrp 30 Ml PO DAILY PRN 01/29/17 Rx Hydrocodone-Acetaminophen 10-325 mg Tab 1 Tab PO Q4H PRN 01/29/17 Rx Duoneb (Ipratropium-Albuterol Neb) 0.5-2.5 Mg/3 Ml Neb 1 Ampule NEB Q4HR WHILE AWAKE NEB 01/29/17 Rx Megestrol Liq (Megestrol Acetate) 40 Mg/Ml Susp 400 Mg PO BID 01/29/17 Rx Symbicort Inh (Budesonide/Formoterol Fumarate) 160-4.5 Mcg/Act Aero 1 Puff INH Q12HR 01/29/17 Rx Ventolin Hfa 18 GM Inh (Albuterol Sulfate) 90 Mcg/Act Aer 2 Puff INH Q4H PRN 01/29/17 Rx Family History Mother had breast cancer. Multiple and some on side with breast cancer Social History Quit smoking 2 months ago, smoked for many years prior to that- unable to quantify No ETOH No illicit drug use (Kayla Iraheta) Review of Systems Constitutional: COMPLAINS OF: Fatigue, DENIES: Weight loss, Change in appetite Respiratory: COMPLAINS OF: Cough, Shortness of breath Gastrointestinal: COMPLAINS OF: Abdominal pain, Black stools, Swelling of Abdomen, Heartburn, DENIES: Bloody stools, Constipation, Diarrhea, Nausea, Vomiting, Hematemesis Hematologic/lymphatic: DENIES: Bruising Neurologic: DENIES: Headache Psychiatric: DENIES: Confusion (Kayla Iraheta) GI Exam Vitals I&O Vital Signs Date Time Temp Pulse Resp B/P (MAP) Pulse Ox O2 Delivery O2 Flow Rate FiO2 02/09/17 07:35 105 17 126/83 (97) 100 Nasal Cannula 2.00 02/09/17 04:52 98.6 101 20 144/83 (103) 96 Laboratory Test 02/09/17 05:15 White Blood Count 13.4 TH/MM3 Red Blood Count 3.53 MIL/MM3 Hemoglobin 9.1 GM/DL Hematocrit 29.6 % Mean Corpuscular Volume 83.8 FL Mean Corpuscular Hemoglobin 25.8 PG Mean Corpuscular Hemoglobin Concent 30.8 % Red Cell Distribution Width 22.1 % Platelet Count 247 TH/MM3 Mean Platelet Volume 7.2 FL Neutrophils (%) (Auto) 76.7 % Lymphocytes (%) (Auto) 7.4 % Monocytes (%) (Auto) 5.0 % Eosinophils (%) (Auto) 10.0 % Basophils (%) (Auto) 0.9 % Neutrophils # (Auto) 10.3 TH/MM3 Lymphocytes # (Auto) 1.0 TH/MM3 Monocytes # (Auto) 0.7 TH/MM3 Eosinophils # (Auto) 1.3 TH/MM3 Basophils # (Auto) 0.1 TH/MM3 CBC Comment DIFF FINAL Differential Comment Prothrombin Time 17.4 SEC Prothromb Time International Ratio 1.5 RATIO Activated Partial Thromboplast Time 36.4 SEC Blood Urea Nitrogen 12 MG/DL Creatinine 0.59 MG/DL Random Glucose 100 MG/DL Total Protein 4.9 GM/DL Albumin 1.9 GM/DL Calcium Level 7.3 MG/DL Alkaline Phosphatase 94 U/L Aspartate Amino Transf (AST/SGOT) 34 U/L Alanine Aminotransferase (ALT/SGPT) 16 U/L Total Bilirubin 0.4 MG/DL Sodium Level 130 MEQ/L Potassium Level 4.3 MEQ/L Chloride Level 98 MEQ/L Carbon Dioxide Level 23.7 MEQ/L Anion Gap 8 MEQ/L Estimat Glomerular Filtration Rate 170 ML/MIN Protein Corrected Calcium 8.5 MG/DL Lipase 60 U/L Physical Examination HEENT: Normocephalic; atraumatic; no jaundice. CHEST: Resp even/unlabored. CARDIAC: RRR. ABDOMEN: Soft, epigastric fullness, nontender; no hepatosplenomegaly; bowel sounds are present in all four quadrants. EXTREMITIES: Mild pedal edema. SKIN: Normal; no rash; no jaundice. RADIOLOGY AIDE: No focal deficits; alert and oriented times three. (Kayla Iraheta) Assessment and Plan Plan ASSESSMENT: - Upper gib with melena x 6 days. Pt with known metastatic lung cancer. He is not on chemotherapy at this time. He does report that he is on a blood thinner, but does not recall the name. It is not listed on his home meds or on his discharge summary from earlier this month. Reports black tarry stool with lower abdominal cramping , occasional heartburn- no n/v, hematemesis. Denies hx PUD. Never had egd. Was eating clear liquids at 0945 when I saw him. NPO. Protonix with BID dosing. Plan for EGD today. - Anemia, acute blood loss. H/H was 9.1/29.6 on admission, platelets 247, and PT 17.4, INR 1.5, APTT 36.4. - Metastatic adenocarcinoma of lung with extensive metastasis to the mediastinal lymph nodes, left supraclavicular lymph nodes,bilateral adrenal glands, and liver, who presented to the emergency room for evaluation of black tarry stools. 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 He was started on palliative radiation, but was not able to be started on outpatient palliative systemic therapy with Dr. Arana, secondary to lack of insurance. He was hospitalized at this facility earlier this month and was seen by Dr. Chavez. The plan was to start palliative chemotherapy as outpt, but the patient has not yet followed up as outpatient. PLAN: - Plan for egd today - Obtain consents - NPO - Protonix 40mg IV BID - Monitor HH - Transfuse as necessary - Supportive care - Further recommendations to follow based on results of above - Pt seen and examined by Dr. Manning and myself and this note is written on his behalf (Kayla Iraheta) Physician Comments Patient seen and examined Agree with above Continue current supportive care Monitor labs EGD next (Braulio Manning MD) Kayla Iraheta Feb 09, 2017 09:31 Braulio Manning MD Feb 09, 2017 16:12
[2017-02-09 11:47] VITALS: BP 109/86; PULSE 97; RESP 19; TEMP 96.1; O2SAT 100
--- NOTE | 2017-02-09 11:55 | PD.CONS ---
Consult Service Palliative Care Consult Requested By Dr. Hannah . Primary Care Physician No Primary Care Physician . Reason for Consultation a. To assist with evaluation and management of symptoms including: Pain, dyspnea b. To assist medical decision maker(s) with: better understanding of current medical conditions; weighing benefits/burdens of medical treatment options; making medical treatment decisions. . HPI History of Present Illness This 61-year-old male, with a past history of adenocarcinoma of lung stage IV ( diagnosed November 2016), SVC thrombosis, PE, and prior GI bleeding, presented to the emergency department overnight because of weakness and abdominal pain. The patient initially presented to [facility] in November 2016 and was found to have stage IV lung cancer. He had some signs of SVC syndrome and radiation was provided. He was uninsured, and he was referred for outpatient chemotherapy consideration. However, the patient presented to our emergency department on 01/05/17 because of dyspnea, and he was noted to have significant hyponatremia. CT angiography of the chest at that time revealed a new PE, and he was also noted to have metastatic disease in lymph nodes, bone, and adrenals. He returned to the hospital on 01/26/17 because of abdominal pain and loose stools. 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 He was in the process of getting qualified for Medicaid coverage, with a plan to initiate Keytruda (with an anticipated response rate of 65%). However, the patient has been having dark-colored loose stools the past for 5 days, and he had been becoming increasingly weak. During the night, he slumped to the floor when he was trying to walk due to his weakness, and his brother brought him back to the emergency department in the proof inspector hours today. He was noted again to have signs of GI bleeding, and he was admitted to the hospital. Gastroenterology has seen the patient this morning, and he is scheduled for EGD; he has also been begun on Protonix. The patient has had worsening mid/lower abdominal pain over the past month, and it has been fairly constant, not positional, and it does not radiate. He has been on 10 mg Lortab at home, and he says that has helped "just a little." Since admission here, he now has Lortab and some low-dose parenteral morphine ordered as PRN meds, although I do not believe he has had any yet. He says he has not had vomiting or nausea, and he does not believe his abdomen is any more distended than usual the past few days. He has been declining in the past couple months, losing at least 10 pounds, and he has less appetite, eating less. Palliative Care was consulted to assist with symptom management, and to enter into discussions with the patient regarding his illnesses, his prognosis, and the benefits and burdens of the various treatment choices. . Function/Cognitive Trajectory The patient has been living with his brother and family in recent weeks, and he has been getting increasingly weak. Overnight, he was too weak to stand and walk and he had slumped to the floor, but prior to that he was able to ambulate a few steps on his own. He has been declining, losing weight. . Review of Systems Constitutional: COMPLAINS OF: Weight loss Endocrine: DENIES: Polyuria Eyes: DENIES: Eye inflammation Ears, nose, mouth, throat: DENIES: Epistaxis Respiratory: COMPLAINS OF: Shortness of breath (especially with any minimal exertion), DENIES: Cough Cardiovascular: COMPLAINS OF: Dyspnea on Exertion, Lower Extremity Edema, DENIES: Chest pain, Syncope Gastrointestinal: COMPLAINS OF: Black stools, Diarrhea, DENIES: Nausea, Vomiting Genitourinary: DENIES: Hematuria Musculoskeletal: DENIES: Joint Swelling, Back pain Integumentary: DENIES: Rash Hematologic/Lymphatics: COMPLAINS OF: Lymphadenopathy (left neck) Immunologic/Allergic: DENIES: Urticaria Neurologic: DENIES: Headache, Localized weakness, Seizures Psychiatric: DENIES: Confusion, Hallucinations Past Family Social History Coded Allergies: No Known Allergies (Unverified , 02/09/17) Past Medical History * Adenocarcinoma of lung, stage IV, widespread metastatic disease * Complications of malignancy, including SVC thrombus/syndrome, hyponatremia, cachexia * History of prior GI bleeding * Scoliosis * Malnutrition/cachexia * Degenerative arthritis . Past Surgical History Biopsy of lung mass/mediastinal lymph node mass . Reported Medications Reported Meds & Active Scripts Active Feosol (Ferrous Sulfate) 325 Mg (65 Mg Iron) Tab 200 Mg PO BIDPC Oxygen (O2) Device Liter RYAN.CANULA CONTINUOUS Oxygen Concentrator Portable Gaseous 2 L/min via Nasal Canula Continuous For 99 months Adult Aerosol Mask (Nebulizer Accessories) 1 Each Each Unit Nebulizer 1 Mis Mis Ea .ROUTE DIRECTED Senna Plus 8.6-50 mg (Sennosides-Docusate Sodium) 8.6 Mg-50 Mg Tab 2 Tab PO BID [Lactulose Liq] 30 ML Syrp 30 Ml PO DAILY PRN Hydrocodone-Acetaminophen 10-325 mg Tab 1 Tab PO Q4H PRN Duoneb (Ipratropium-Albuterol Neb) 0.5-2.5 Mg/3 Ml Neb 1 Ampule NEB Q4HR WHILE AWAKE NEB Megestrol Liq (Megestrol Acetate) 40 Mg/Ml Susp 400 Mg PO BID Symbicort Inh (Budesonide/Formoterol Fumarate) 160-4.5 Mcg/Act Aero 1 Puff INH Q12HR Ventolin Hfa 18 GM Inh (Albuterol Sulfate) 90 Mcg/Act Aer 2 Puff INH Q4H PRN . Current Medications Medications (Trade) Dose Ordered Sig/Shravan Route Start Time Stop Time Status Last Admin (NS Flush) 2 ml UNSCH PRN IV FLUSH 02/09/17 08:00 (NS Flush) 2 ml BID IV FLUSH 02/09/17 09:00 02/09/17 09:15 (Tylenol) 650 mg Q4H PRN PO 02/09/17 08:00 (Zofran Inj) 4 mg Q6H PRN IVP 02/09/17 08:00 (Tylenol) 650 mg Q6H PRN PO 02/09/17 08:00 ([place] 5-325 Mg) 1 tab Q4H PRN PO 02/09/17 08:00 ([place] 7.5-325 Mg) 1 tab Q4H PRN PO 02/09/17 08:00 (Morphine Inj) 1 mg Q4H PRN IV PUSH 02/09/17 08:00 (Narcan Inj) 0.4 mg UNSCH PRN IV PUSH 02/09/17 08:00 (Milk Of Magnesia Liq) 30 ml Q12H PRN PO 02/09/17 08:00 (Protonix Inj) 40 mg Q12H IV PUSH 02/09/17 09:00 02/09/17 09:13 Family History Mother is and had breast cancer, and other family members also had breast cancer. The patient is unfamiliar with his father's medical history. He does not believe there are any other cancers in his family. . Substance Use Tobacco: Long-term 1 pack per day smoker who says that he quit a couple months ago. Alcohol: None Prescription med abuse: None Illicits: Reportedly uses marijuana . Psychosocial History The patient was born and has lived in this area his entire life. He currently lives with his brother Marino, and Marino's and her parents. The patient has never been and he says he has no children. 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 He has not been able to work because of weakness for the past several months. . Spiritual/Cultural Factors The patient has a Spiritism background, but has been on affiliated with any rastafari or clergy for many years. He is open to lead python developer visits. . Living Will: Copy in medical record Health Care Surrogate: Never completed Durable Power of Furniture Assembly Supervisor: Never completed Date completed: 02/09/17 . Health Care Surrogate(s): The patient has appointed his brother Marino Zeng as HCS, and that role has been accepted by his brother. . Today's verbally stated goals: The patient understands that he has a terminal condition, and he is definitely hoping that he will be granted Medicaid coverage soon so that he can begin the Keytruda. He definitely does not want to be coded or placed on life support machines. . Family/friends goals: The patient's brother agrees with the patient's goals and wishes. . Ethical and Legal Issues There are no ethical issues that would impact his care were decision-making at this time. The patient has capacity for decision-making. When he loses that capacity, he has appointed his brother Marino Zeng as HCS. . Physical Exam Vital Signs Date Time Temp Pulse Resp B/P (MAP) Pulse Ox O2 Delivery O2 Flow Rate FiO2 02/09/17 09:26 02/09/17 07:35 105 17 126/83 (97) 100 Nasal Cannula 2.00 02/09/17 04:52 98.6 101 20 144/83 (103) 96 Exam CONSTITUTIONAL/GENERAL: This is a cachectic, weak patient, in no apparent distress. TUBES/LINES/DRAINS: Peripheral IV SKIN: No jaundice, rashes, or lesions.No wounds seen anteriorly. Skin temperature appropriate. Not diaphoretic. HEAD: Atraumatic. Normocephalic. EYES: Pupils equal and round and reactive. Extraocular motions intact. No scleral icterus. No injection or drainage. Fundi not examined. ENT: Hearing grossly normal. Nose without bleeding or purulent drainage. NECK: Trachea midline. Supple, nontender. Firm palpable adenopathy left supraclavicular. CARDIOVASCULAR: Regular rate and rhythm without murmurs, gallops, or rubs. No JVD. Peripheral pulses symmetric. RESPIRATORY/CHEST: Symmetric, unlabored respirations. Some scattered rhonchi are present GASTROINTESTINAL: Abdomen soft, non-tender. There is some appearance of distention of the upper abdomen but that may be due to his pronounced scoliosis. No hepato-splenomegaly, or palpable masses. No guarding. Bowel sounds present. GENITOURINARY: Without palpable bladder distension. MUSCULOSKELETAL: Extremities without clubbing, cyanosis. There is 1+ edema in the feet/ankles. No joint tenderness or effusion noted. No calf tenderness. No mottling or clubbing. LYMPHATICS: Easily palpable left supraclavicular adenopathy. NEUROLOGICAL: Awake and alert. Motor and sensory grossly within normal limits. Follows commands. Cognitively sharp. Moves all extremities. PSYCHIATRIC: No obvious anxiety/depression. no apparent hallucinations or other psychotic thought process. . Diagnostic Tests Laboratory Laboratory Tests Test 02/09/17 05:15 White Blood Count 13.4 TH/MM3 (4.0-11.0) Red Blood Count 3.53 MIL/MM3 (4.50-5.90) Hemoglobin 9.1 GM/DL (13.0-17.0) Hematocrit 29.6 % (39.0-51.0) Mean Corpuscular Volume 83.8 FL (80.0-100.0) Mean Corpuscular Hemoglobin 25.8 PG (27.0-34.0) Mean Corpuscular Hemoglobin Concent 30.8 % (32.0-36.0) Red Cell Distribution Width 22.1 % (11.6-17.2) Platelet Count 247 TH/MM3 (150-450) Mean Platelet Volume 7.2 FL (7.0-11.0) Neutrophils (%) (Auto) 76.7 % (16.0-70.0) Lymphocytes (%) (Auto) 7.4 % (9.0-44.0) Monocytes (%) (Auto) 5.0 % (0.0-8.0) Eosinophils (%) (Auto) 10.0 % (0.0-4.0) Basophils (%) (Auto) 0.9 % (0.0-2.0) Neutrophils # (Auto) 10.3 TH/MM3 (1.8-7.7) Lymphocytes # (Auto) 1.0 TH/MM3 (1.0-4.8) Monocytes # (Auto) 0.7 TH/MM3 (0-0.9) Eosinophils # (Auto) 1.3 TH/MM3 (0-0.4) Basophils # (Auto) 0.1 TH/MM3 (0-0.2) CBC Comment DIFF FINAL Differential Comment Prothrombin Time 17.4 SEC (9.8-11.6) Prothromb Time International Ratio 1.5 RATIO Activated Partial Thromboplast Time 36.4 SEC (24.3-30.1) Blood Urea Nitrogen 12 MG/DL (7-18) Creatinine 0.59 MG/DL (0.60-1.30) Random Glucose 100 MG/DL (74-106) Total Protein 4.9 GM/DL (6.4-8.2) Albumin 1.9 GM/DL (3.4-5.0) Calcium Level 7.3 MG/DL (8.5-10.1) Alkaline Phosphatase 94 U/L (45-117) Aspartate Amino Transf (AST/SGOT) 34 U/L (15-37) Alanine Aminotransferase (ALT/SGPT) 16 U/L (12-78) Total Bilirubin 0.4 MG/DL (0.2-1.0) Sodium Level 130 MEQ/L (136-145) Potassium Level 4.3 MEQ/L (3.5-5.1) Chloride Level 98 MEQ/L (98-107) Carbon Dioxide Level 23.7 MEQ/L (21.0-32.0) Anion Gap 8 MEQ/L (5-15) Estimat Glomerular Filtration Rate 170 ML/MIN (>89) Protein Corrected Calcium 8.5 MG/DL (8.5-10.1) Lipase 60 U/L (73-393) Result Diagram: 02/09/17 0515 02/09/17 0515 Procedures He is scheduled for EGD 02/09/17 . Patient/Family Conference Present at Family Conference: The patient and I are present in the room, and the patient's brother Marino then was contacted by telephone. . Family Conference Time (mins): 44 Family Conference Location: Bedside, Telephone Issues Discussed: * Palliative care role, purpose, approach * Additional medical, psychosocial, and spiritual history * Patients general health, functional status, and cognitive changes in the months leading up to the current hospitalization * Patient/family understanding of the current medical problems * Patient/family understanding of prognosis * Patients goals of care as best understood from advance directives and/or conversations and/or values * Current medical treatment options and benefits/burdens of those options * Likely scenarios comparing ongoing aggressive care with a transition to comfort measures only * Questions answered to the best of my ability * Palliative care contact information provided . Assessment and Plan Disease Oriented Problem List: (1) GI bleeding, anemia (2) adenocarcinoma of lung, stage IV, widespread metastatic disease (3) complications of malignancy, including SVC thrombus/syndrome, hyponatremia, cachexia (4) history of prior GI bleeding, unknown etiology (5) scoliosis, pronounced (6) malnutrition/cachexia (7) degenerative arthritis Symptom Scale: (1) pain 0-10 Scale: 3 (2) weakness/cachexia 0-10 Scale: Unable to quantify Pertinent Non-Medical Issues Psychosocial: Never , no children, lives with brother. 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 Spiritual: Spiritism background, open to lead python developer visits. Legal: Patient has capacity for decision-making, and he has named his brother Marino as HCS. Ethical issues impacting care: None. . Important Contacts Patient's brother Marino Zeng [phone] . Prognosis The patient has stage IV adenocarcinoma of the lung and is terminal. He will be appropriate for hospice services when his aggressive care is completed. . Code Status: No Code Plan * DO NOT RESUSCITATE, per request of patient and his brother 02/09/17 * DECISION-MAKING: The patient has capacity for decision-making at this time. He has designated his brother Marino Zeng as HCS. * GOALS: The patient is hoping that his Medicaid insurance will be approved in the very near future so that he can start on the proposed Keytruda, and he is hoping he is one of the 65% that will get a good response so that he will have some additional quality time. "If things go bad, I don't want to be on any machines; just let me go then." * SYMPTOMS: He has had worsening abdominal pain in recent weeks; Lortab and parenteral morphine are ordered PRN. * Healthcare surrogate form completed, naming patient's brother Marino Zeng as HCS. * Community DNR form completed. * Labeling Specialist visits requested. * Palliative Care will continue to follow the patient during this hospitalization. . Time Spent Total Floor Time (mins): 79 Face to Face Time (mins): 51 >50% Counseling/Coord of Care: Yes Thank you for the opportunity to participate in the care of Mr. Zeng. Attestation To help prompt me to consider important information that might be impacting today's encounter and assessment, information from prior notes written by myself or my colleagues may have been "brought forward" into today's note. My signature on this note, however, is an attestation that I personally performed the exam, history, and/or decision-making noted today, and, unless otherwise indicated, the interactions with patient, family, and staff as well as the review of records all occurred today. I also attest that the listed assessment and stated plan reflect my best clinical judgment today based on the combination of historical information, prior notes, and today's exam/ interactions. When time spent is documented, it refers only to time spent today by the signer, or if indicated, combined time spent today by collaborating physician/nurse practitioner. Jennifer Soto MD Feb 09, 2017 11:55
--- NOTE | 2017-02-09 13:07 | HHI.HP ---
[facility] No Primary Care Physician Admission Diagnosis GI bleed, Coagulopathy Diagnoses: (1) GI bleeding (2) Coagulopathy (3) adenocarcinoma of lung, stage IV, widespread metastatic disease Chief Complaint: GI bleed Travel History International Travel<30 Days: No Contact w/Intl Traveler <30 Da: No Traveled to Known Affected Are: No History of Present Illness 61 year-old -[place] male with a history of metastases lung cancer diagnosed in November 2016, presented to the ED for evaluation of black tarry stool with lower abdominal cramping, which started over the past weekend. patient denies any hemoptysis, hematemesis or hematuria. Denies any prior history of peptic ulcer disease. He reveals a on blood thinner however does not recall when he stopped taking it. Abnormal labs include H&H 9.1/29.6, platelets 247, INR 1.5 and PT 17.4. He also complains of weakness as well as shortness of breath. Review of Systems Except as stated in HPI: all other systems reviewed are Neg Past Family Social History Past Medical History * Adenocarcinoma of lung, stage IV, widespread metastatic disease * Complications of malignancy, including SVC thrombus/syndrome, hyponatremia, cachexia * History of prior GI bleeding * Scoliosis * Malnutrition/cachexia * Degenerative arthritis . Past Surgical History Biopsy of lung mass/mediastinal lymph node mass . Reported Medications Feosol (Ferrous Sulfate) 325 Mg (65 Mg Iron) Tab 200 Mg PO BIDPC Oxygen (O2) Device Liter RYAN.CANULA CONTINUOUS Oxygen Concentrator Portable Gaseous 2 L/min via Nasal Canula Continuous For 99 months Adult Aerosol Mask (Nebulizer Accessories) 1 Each Each Unit Nebulizer 1 Mis Mis Ea .ROUTE DIRECTED Senna Plus 8.6-50 mg (Sennosides-Docusate Sodium) 8.6 Mg-50 Mg Tab 2 Tab PO BID [Lactulose Liq] 30 ML Syrp 30 Ml PO DAILY PRN Hydrocodone-Acetaminophen 10-325 mg Tab 1 Tab PO Q4H PRN Duoneb (Ipratropium-Albuterol Neb) 0.5-2.5 Mg/3 Ml Neb 1 Ampule NEB Q4HR WHILE AWAKE NEB Megestrol Liq (Megestrol Acetate) 40 Mg/Ml Susp 400 Mg PO BID Symbicort Inh (Budesonide/Formoterol Fumarate) 160-4.5 Mcg/Act Aero 1 Puff INH Q12HR Ventolin Hfa 18 GM Inh (Albuterol Sulfate) 90 Mcg/Act Aer 2 Puff INH Q4H PRN Allergies: Coded Allergies: No Known Allergies (Unverified , 02/09/17) Family History Mother is and had breast cancer, and other family members also had breast cancer. . Social History Quit smoking 2 months ago, smoked for many years prior to that- unable to quantify No ETOH No illicit drug use Physical Exam Vital Signs Vital Signs Date Time Temp Pulse Resp B/P (MAP) Pulse Ox O2 Delivery O2 Flow Rate FiO2 02/09/17 11:47 96.1 97 19 109/86 (94) 100 02/09/17 09:26 02/09/17 07:35 105 17 126/83 (97) 100 Nasal Cannula 2.00 02/09/17 04:52 98.6 101 20 144/83 (103) 96 Physical Exam GENERAL: Frail male in no acute distress SKIN: No rashes, ecchymoses or lesions. Cool and dry. HEAD: Atraumatic. Normocephalic. No temporal or scalp tenderness. EYES: Pupils equal round and reactive. Extraocular motions intact. No scleral icterus. No injection or drainage. ENT: Nose without bleeding, purulent drainage or septal hematoma. Throat without erythema, tonsillar hypertrophy or exudate. Uvula midline. Airway patent. NECK: Trachea midline. No JVD or lymphadenopathy. Supple, nontender, no meningeal signs. CARDIOVASCULAR: Regular rate and rhythm without murmurs, gallops, or rubs. RESPIRATORY: Clear to auscultation. Breath sounds equal bilaterally. No wheezes , rales, or rhonchi. GASTROINTESTINAL: Abdomen soft, non-tender, nondistended. No hepato-splenomegaly , or palpable masses. No guarding. MUSCULOSKELETAL: Extremities without clubbing, cyanosis, or edema. No joint tenderness, effusion, or edema noted. No calf tenderness. Negative Homans sign bilaterally. NEUROLOGICAL: Awake and alert. Cranial nerves II through XII intact. Motor and sensory grossly within normal limits. Five out of 5 muscle strength in all muscle groups. Normal speech. Laboratory Laboratory Tests Test 02/09/17 05:15 White Blood Count 13.4 Red Blood Count 3.53 Hemoglobin 9.1 Hematocrit 29.6 Mean Corpuscular Volume 83.8 Mean Corpuscular Hemoglobin 25.8 Mean Corpuscular Hemoglobin Concent 30.8 Red Cell Distribution Width 22.1 Platelet Count 247 Mean Platelet Volume 7.2 Neutrophils (%) (Auto) 76.7 Lymphocytes (%) (Auto) 7.4 Monocytes (%) (Auto) 5.0 Eosinophils (%) (Auto) 10.0 Basophils (%) (Auto) 0.9 Neutrophils # (Auto) 10.3 Lymphocytes # (Auto) 1.0 Monocytes # (Auto) 0.7 Eosinophils # (Auto) 1.3 Basophils # (Auto) 0.1 CBC Comment DIFF FINAL Differential Comment Prothrombin Time 17.4 Prothromb Time International Ratio 1.5 Activated Partial Thromboplast Time 36.4 Blood Urea Nitrogen 12 Creatinine 0.59 Random Glucose 100 Total Protein 4.9 Albumin 1.9 Calcium Level 7.3 Alkaline Phosphatase 94 Aspartate Amino Transf (AST/SGOT) 34 Alanine Aminotransferase (ALT/SGPT) 16 Total Bilirubin 0.4 Sodium Level 130 Potassium Level 4.3 Chloride Level 98 Carbon Dioxide Level 23.7 Anion Gap 8 Estimat Glomerular Filtration Rate 170 Protein Corrected Calcium 8.5 Lipase 60 Result Diagram: 02/09/1751402/09/1715 Caprini VTE Risk Assessment Caprini VTE Risk Assessment: No/Low Risk (score <= 1) Caprini Risk Assessment Model Point Value = 1 Point Value = 2 Point Value = 3 Point Value = 5 Age 41-60 Minor surgery BMI > 25 kg/m2 Swollen legs Varicose veins or History of unexplained or recurrent spontaneous Oral contraceptives or hormone replacement Sepsis (< 1 month) Serious lung disease, including pneumonia (< 1 month) Abnormal pulmonary function Acute myocardial infarction Congestive heart failure (< 1 month) History of inflammatory bowel disease Medical patient at bed rest Age 61-74 Arthroscopic surgery Major open surgery (> 45 min) Laparoscopic surgery (> 45 min) Malignancy Confined to bed (> 72 hours) Immobilizing plaster cast Central venous access Age >= 75 History of VTE Family history of VTE Factor V Leiden Prothrombin [id number] Lupus anticoagulant Anticardiolipin antibodies Elevated serum homocysteine Heparin-induced thrombocytopenia Other congenital or acquired thrombophilia Stroke (< 1 month) Elective arthroplasty Hip, pelvis, or leg fracture Acute spinal cord injury (< 1 month) Prophylaxis Regimen Total Risk Factor Score Risk Level Prophylaxis Regimen 0-1 Low Early ambulation 2 Moderate Order ONE of the following: *Sequential Compression Device (SCD) *Heparin 5000 units SQ BID 3-4 Higher Order ONE of the following medications: *Heparin 5000 units SQ TID *Enoxaparin/Lovenox 40 mg SQ daily (WT < 150 kg, CrCl > 30 mL/min) *Enoxaparin/Lovenox 30 mg SQ daily (WT < 150 kg, CrCl > 10-29 mL/min) *Enoxaparin/Lovenox 30 mg SQ BID (WT < 150 kg, CrCl > 30 mL/min) AND/OR *Sequential Compression Device (SCD) 5 or more Highest Order ONE of the following medications: *Heparin 5000 units SQ TID (Preferred with Epidurals) *Enoxaparin/Lovenox 40 mg SQ daily (WT < 150 kg, CrCl > 30 mL/min) *Enoxaparin/Lovenox 30 mg SQ daily (WT < 150 kg, CrCl > 10-29 mL/min) *Enoxaparin/Lovenox 30 mg SQ BID (WT < 150 kg, CrCl > 30 mL/min) AND *Sequential Compression Device (SCD) Assessment and Plan Problem List: (1) GI bleeding ICD Code: K92.2 - Gastrointestinal hemorrhage, unspecified Status: Acute (2) Coagulopathy ICD Code: D68.9 - Coagulation defect, unspecified Status: Acute (3) adenocarcinoma of lung, stage IV, widespread metastatic disease Assessment and Plan 61-year-old man with GI bleeding Coagulopathy Consult gastroenterology for evaluation for possible EGD +/-colonoscopy Start Protonix 40 mg twice a day IV Serial monitoring of H&H Normochromic normocytic anemia H&H currently stable Transfuse accordingly for hemoglobin less than 8 Leukocytosis Stress reactive Continue to monitor Hypotension Start Gentle IV fluid hydration and monitor BP History of metastasis to lung cancer Consult palliative care medicine for addressing goals of end-of-life Consider hospice consultation Resume Megace and consult PT Outpatient follow-up with oncology COPD No current exacerbation DuoNeb when necessary and resume long-acting bronchodilator Other chronic medical conditions Resume outpatient medications DVT prophylaxis: Bilateral SCDs, chemical anti-prophylaxis is contraindicated secondary to GI bleed GI prophylaxis: PPI Code Status DO NOT RESUSCITATE Discussed Condition With Patient, ED physician Physician Certification 2 Midnight Certification Type: Admission for Inpatient Services Order for Inpatient Services The services are ordered in accordance with Medicare regulations or non- Medicare payer requirements, as applicable. In the case of services not specified as inpatient-only, they are appropriately provided as inpatient services in accordance with the 2-midnight benchmark. Estimated LOS (days): 2 days is the estimated time the patient will need to remain in the hospital, assuming treatment plan goals are met and no additional complications. Post-Hospital Plan: Not yet determined Timothy Hannah MD Feb 09, 2017 13:07
[2017-02-09] MEDS ORDERED: RESP: ALBUTEROL 2.5 MG/IPRATROPIUM 0.5 MG NEB (PRN) NEB (13:15)
[2017-02-09] MEDS: SODIUM CHLOR 0.9% 1000 ML INJ 1,000 ML IV SCH (13:15)
[2017-02-09] MEDS ORDERED: DO NOT ADM ANY ANTICOAGULANT DRUGS PRN (16:10)
--- NOTE | 2017-02-09 16:15 | PD.PROCEDR ---
GI Procedure REFERRING PHYSICIAN DARYA PROCEDURE PERFORMED EGD with biopsy INDICATION FOR PROCEDURE Melena, anemia PROCEDURE: The procedure, risks and benefits were discussed with Mr. Zeng and informed consent was obtained. Anesthesia sedated him with Diprivan. He was placed in the left lateral decubitus position. EGD: The Pentax videoscope was introduced through the oropharynx and advanced to the second portion of the duodenum under direct visualization. Retroflexion was performed in the stomach. FINDINGS: Esophagus this was normal Stomach there was a small superficial antral ulcer no visible vessel no blood or bleeding patchy erythema was noted in the antrum antral biopsies were taken further evaluation the stomach was otherwise unremarkable Duodenum this was unremarkable ESTIMATED BLOOD LOSS: None SPECIMENS REMOVED: Antral biopsies COMPLICATIONS: None IMPRESSION: Gastritis Gastric ulcer PLAN: Await biopsies Continue PPI Avoid NSAIDs and aspirin Monitor labs and transfuse as needed Consider repeat EGD in 2 months Braulio Manning MD Feb 09, 2017 16:15
[2017-02-09 17:43] VITALS: BP 111/75; PULSE 110; RESP 16; TEMP 97.8; O2SAT 93
[2017-02-09 19:44] LABS: HEMATOCRIT 34.2 % (39.0-51.0); REVIEW FLAG FINAL
[2017-02-09 20:00] VITALS: BP 102/82; PULSE 108; RESP 20; TEMP 98; O2SAT 97
[2017-02-09] MEDS: MEGESTROL ACETATE SUSP 400 MG/10 ML CUP PO SCH (21:00)
[2017-02-09] MEDS: ACETAMINOPHEN/HYDROcodone 325 MG/7.5 MG TAB PO PRN (21:01)
--- NOTE | 2017-02-09 21:21 | EKG ---
Date Performed: 02/09/2017 Time Performed: 05:05:01 PTAGE: 61 years EKG: Sinus rhythm LOW QRS VOLTAGE IN EXTREMITY LEADS BORDERLINE ECG NO PREVIOUS TRACING DOCTOR: Gary Roman Interpretating Date/Time 02/09/2017 21:20:03
--- NOTE | 2017-02-09 21:23 | MB ---
cc: BARTOLO LORENZ MD DATE OF CONSULTATION: 02/09/2017. REASON FOR CONSULTATION: 1. Metastatic adenocarcinoma of the lung. 2. Recurrent upper GI bleeding. 3. 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 4. Outpatient anticoagulation. REQUESTING PHYSICIAN: Consult requested by the Hospitalist Physicians. CHIEF COMPLAINT: The patient reports progressive weakness and fatigue. He reports having had black tarry stools associated with abdominal cramps. These are the acute issues leading up to the hospitalization. In addition to this, the patient reports generalized weakness and pain. HISTORY OF PRESENT ILLNESS: Mr. Zeng is a 61-year-old male with an extensive past history of tobaccoism. This patient initially presented in November of 2016 to [facility] where he was evaluated for facial swelling, upper extremity swelling and chest pain. He was found to have a large mass involving the right upper lobe of the lung associated with bulky mediastinal lymphadenopathy. He had an SVC thrombus and SVC syndrome. He underwent image-guided biopsy of the lesion and was found to have adenocarcinoma of the lung. Subsequently he received palliative radiation to the mediastinum with interval reduction of the tumor mass. Additionally he was initiated on anticoagulation for management of his SVC thrombus. After his initial hospitalization, he had at least one additional hospitalization at [facility] for GI bleeding. His initial workup was coordinated by Dr. Arana of [facility]. The genetic testing on his tumor revealed high expression for PDL-1 at 80%. The tumor was also found to be positive for the MET mutation (exon 14 mutation-positive). The patient is yet to initiate any systemic therapeutic interventions. Mr. Zeng was last seen by me in early January when he was admitted to the hospital with pain and facial swelling. He was recommended outpatient followup but has not been able to follow up. He was admitted to the hospital, I believe yesterday, and underwent an EGD today for history of melena. He was found to have a superficial antral ulcer without evidence of bleeding. He was recommended discontinuation of anticoagulation and initiation of PPI. The oncology service has been asked to see him to help further coordinate his care. Additionally, the patient has been seen by palliative care. PAST MEDICAL HISTORY: 1. Metastatic adenocarcinoma of the lung. 2. Superior vena cava syndrome. 3. Supraventricular tachycardia thrombus. 4. History of gastric ulcer. 5. History of tobaccoism. 6. Extensive scoliosis of the spine with deformity. PAST SURGICAL HISTORY: 1. Image-guided biopsy of the lung / mediastinal mass. 2. Multiple EGDs. FAMILY HISTORY: Mother with breast cancer, multiple aunts on the mom's side with breast cancer. ALLERGIES: NO KNOWN DRUG ALLERGIES. SOCIAL HISTORY: The patient is single. Never . He has no children. He lives at home with a roommate. He has a brother who is supportive. CURRENT INPATIENT MEDICATIONS: 1. Normal saline 70 cc per hour. 2. Tylenol 650 milligrams p.o. q. 4 hours. 3. Symbicort one puff inhaled twice daily. 4. Magnesium hydroxide 30 mL p.o. q. 12 hours. 5. Megace 400 milligrams p.o. twice a day. 6. Morphine 1 milligram IV q. 4 hours as needed for pain. 7. Zofran 4 milligrams IV as needed q. 6 hours for nausea and vomiting. 8. Pantoprazole 40 milligrams IV q. 12 hours. REVIEW OF SYSTEMS: CONSTITUTIONAL: The patient reports generalized pain, fatigue, weakness, loss of appetite. He is generally bed-bound. HEAD, EYES, EARS, NOSE, THROAT: Denies headaches, blurry vision, difficulty swallowing, he denies soreness in the throat. NECK: He does not report pain in his neck especially on the left side. RESPIRATORY: Reports shortness of breath with minimal exertion and reports cough. He denies hemoptysis. CARDIOVASCULAR: Denies angina-like chest pain, PND, orthopnea. MUSCULOSKELETAL: Reports swelling of the left upper extremity and face and neck. Severe scoliosis with chronic back pain, deformity of his back and torso and difficulty ambulating. He ambulates with crutches and walkers. GI: Denies nausea, vomiting, diarrhea. He does report melena and denies hematochezia. UG: No complaints. 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 PHYSICAL EXAMINATION: VITAL SIGNS: Temperature 97.8 degrees Fahrenheit, heart rate 110 beats a minute, respiratory rate 16, blood pressure 101/75, O2 sats 90% 2 liters nasal cannula. GENERAL APPEARANCE: Mr. Zeng is a middle-aged male, he is laying in bed. He appears to be in no acute distress. He does appear to be somewhat sedated, apparently he has just returned from his EGD. HEAD, EYES, EARS, NOSE, THROAT: Conjunctivae are mildly pale, sclerae are anicteric, Extraocular muscles intact. Pupils equal, round and reactive to light and accommodation. Oral exam shows dry mucous membranes. NECK: Palpable pathologically enlarged left supraclavicular lymphadenopathy. RESPIRATORY EXAM: Decreased bibasilar breath sounds, prolonged expiratory phase, weak inspiratory effort. CARDIOLOGY STUDIES: Tachycardiac, S1-S2. No obvious murmurs, rubs or gallops. ABDOMEN EXAM: Belly is thin and soft, no organ enlargement. Some tenderness over the upper right and left quadrants. LOWER EXTREMITIES: Decreased muscle mass and tone. MUSCULOSKELETAL: He has severe deformity of his spine and torso INTERNET ECOMMERCE SPECIALIST: Moving all fours limbs spontaneously. LABORATORY FINDINGS: Blood work dated 02/09/2017: WBC count 13.4, hemoglobin 9.1 gm/dl, hematocrit 30%, platelet count is 247,000, absolute neutrophil count is 10.3. Chemistries: Sodium 130, potassium 4.3, chloride 98, bicarbonate 23.7, BUN is 12, creatinine 0.6, random glucose is 100, protein corrected calcium is 8.3. Albumin is 1.9. Total protein S 4.9, alkaline phosphatase is 94, ALT is 16, ALT 34, total bilirubin 0.4. Coags: INR is 1.5, PTT is 36.4, PT is 17.4. ASSESSMENT: Mr. Zeng is a 61-year-old man with a diagnosis of metastatic adenocarcinoma of the lung. His disease is positive for the PDL-1 expression (80% expression) and is also positive for the MET mutation involving exon 14. He has metastatic disease to the liver, adrenal glands as well as mediastinal and supraclavicular lymph nodes. The primary tumor involves the right suprahilar lung. He has an ECOG performance status at best of 3. He is a candidate for palliative immunotherapy with Keytruda in the first-line setting. However, it has been a challenge getting him into clinic to see me. Dr. Arana of [facility] had a similar issue prior to me assuming Mr. Zeng's care. Mr. Zeng is in the hospital right now with GI bleeding. He has a history of prior GI bleeding as well and this has occurred in the setting of him being on anticoagulation for management of an SVC thrombus. RECOMMENDATIONS: 1. Metastatic adenocarcinoma of the lung: Mr. Zeng is a candidate for palliative systemic therapy. However delivery of systemic chemotherapy or systemic immunotherapy is contingent upon him being able to see either myself or my associates in clinic. Due to his poor psychosocial support system and due to his physical debility secondary to his severe scoliosis, he just has not been able to follow up in the clinic. I see him only when he is in the hospital. Treatment options for him include first line Keytruda and first line crizotinib. It may be reasonable for me to help procure this drug i.e., crizotinib in pill form and put him on that so he can take this as an outpatient. However it would be difficult monitoring the safety of this medication if he is unable to see me in clinic. 2. 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 3. Anemia: Support with periodic transfusions. 4. Disposition: Today I will have a family meeting with his brother and his [id number] so we can discuss possible ways of making sure Mr. Zeng is able to see me in clinic so we may deliver palliative systemic therapy. I will also explain to them that treatment is palliative in nature and will help prolong his life and help control disease-related symptoms but it will not be curative. MD RONALD Deleon/REYNOLD /6:43 PM /8:57 PM
[2017-02-09 21:34] VITALS: O2SAT 100
[2017-02-09] MEDS: BUDESONIDE-FORMOTEROL 160/4.5 MCG INHALER INH SCH (21:42)
[2017-02-09] MEDS ORDERED: TEMAZEPAM 15 MG CAP PO PRN (22:00)
[2017-02-10] VITALS (13 sets, daily range): BP systolic 88–147; BP diastolic 72–104; PULSE 62–107; RESP 18–20; TEMP 97.3–98.4; O2SAT 95–100
[2017-02-10] MEDS: ACETAMINOPHEN/HYDROcodone 325 MG/7.5 MG TAB PO PRN ×2 (03:51→11:03)
[2017-02-10] MEDS: NALOXONE HCL 0.4 MG/ML AMP IV PUSH PRN ×2 (06:25→06:35)
[2017-02-10] MEDS: SODIUM CHLOR 0.9% 1000 ML INJ 1,000 ML IV SCH (06:53)
[2017-02-10 07:10] LABS: AUTOMATED NEUTROPHIL # 6.5 TH/MM3 (1.8-7.7); BASOPHIL # 0.1 TH/MM3 (0-0.2); BASOPHIL % 0.8 % (0.0-2.0); EOSINOPHIL # 1.1 TH/MM3 (0-0.4); EOSINOPHIL % 12.7 % (0.0-4.0); HEMATOCRIT 28.7 % (39.0-51.0); HEMO FLAGS DIFF FINAL; LYMPH % 5.9 % (9.0-44.0); LYMPHOCYTE # 0.5 TH/MM3 (1.0-4.8); MEAN CELL VOLUME 82.7 FL (80.0-100.0); MEAN CORPUSCULAR HEMOGLOBIN 25.6 PG (27.0-34.0); MEAN CORPUSCULAR HGB CONC 30.9 % (32.0-36.0); MONO % 8.5 % (0.0-8.0); NEUT % 72.1 % (16.0-70.0); PLATELET COUNT 246 TH/MM3 (150-450); RED BLOOD COUNT 3.47 MIL/MM3 (4.50-5.90); RED CELL DISTRIBUTION WIDTH 21.9 % (11.6-17.2)
--- NOTE | 2017-02-10 07:31 | HHI.FPPN ---
Addendum to progress note ADDENDUM Reason for addendum: Additonal documentation Additional information Residents paged for Isabel at 6:21 a.m. Patient is a 61 year-old -[place] male with a history of metastatic lung cancer, which was diagnosed in November 2016, who presented to the ED for evaluation of black tarry stool with lower abdominal cramping. At admission, H& H 9.1/29.6, platelets 247, INR 1.5 and PT 17.4. EGD performed yesterday; no active bleeding identified. Subjective: Unable to arouse patient. As per nurse, patient had received [place] 7.5 mg around 4 AM to relieve abdominal pain. Prior to pain medication, patient was alert and oriented. Objective: Patient laying in hospital bed, sleeping; he is snoring. He does not respond to verbal commands and is unresponsive to sternal rub. Pupils found to be pinpoint. Initial vitals: Blood pressure 88/72; heart rate 99; O2 sats 100% on 2 L nasal cannula. On exam, patient was found to be tachycardic. Rattling heard in upper lung ravi, likely due to snoring. Breath sounds equal bilaterally. 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 Narcan 0.4 mg 2 STAT EKG Order telemetry Primary team may consider PE workup. Course: Following first dose of Narcan, patient's pupils were noted to be dilated. Patient now snoring loudly. Patient still not responsive to verbal commands or sternal rub. Vitals: Blood pressure 140/96, heart rate 101, O2 sats 100% on 2 L nasal cannula. Following second dose of Narcan, patient showing signs of waking up, yawning. He is snoring loudly. Patient still not responsive to verbal commands or sternal rub. Vitals: Blood pressure 147/104, heart rate 106, O2 sats 100% on 2 L nasal cannula. Patient seen and discussed with Dr. Mullen. Suzanne Pereyra MD R1 Feb 10, 2017 07:31
[2017-02-10] MEDS ORDERED: DEXTROSE 50% IN WATER 50 ML SYRINGE ONE ×3 (08:05→17:26)
[2017-02-10 08:07] LABS: CALCIUM-PROTEIN CORRECTED 8.1 MG/DL (8.5-10.1); POTASSIUM 3.6 MEQ/L (3.5-5.1); TOTAL BILIRUBIN ADULT 0.4 MG/DL (0.2-1.0)
[2017-02-10 08:08] LABS: BICARBONATE 21.9 MEQ/L (21.0-32.0)
[2017-02-10] MEDS ORDERED: GLUCAGON 1 MG/ML VIAL OTHER PRN (08:15)
[2017-02-10] MEDS: PANTOPRAZOLE SODIUM 40 MG VIAL IV PUSH SCH (08:58)
[2017-02-10] MEDS: SODIUM CHLORIDE 0.9% FLUSH 10 ML FLUSH IV FLUSH SCH ×2 (08:58→19:28)
[2017-02-10] MEDS: MEGESTROL ACETATE SUSP 400 MG/10 ML CUP PO SCH ×2 (09:00→19:42)
--- NOTE | 2017-02-10 11:36 | HHI.GIFU ---
Subjective Remarks Resting in bed. Complains of mild to moderate epigastric discomfort. No nausea or vomiting. Reports that he hasn't had any other black tarry stools. [place] was called on patient this morning for change in mental status and his blood glucose was noted to be 22. He was given D50W and is currently lethargic but oriented 3 in following commands (Kayla Iraheta) Objective Vitals I&O Vital Signs Date Time Temp Pulse Resp B/P (MAP) Pulse Ox O2 Delivery O2 Flow Rate FiO2 02/10/17 08:00 98.4 89 100/82 (88) 100 02/10/17 07:00 89 02/10/17 06:45 107 143/94 (110) 98 02/10/17 06:35 107 147/104 (118) 100 02/10/17 06:30 103 140/96 (111) 100 02/10/17 06:20 92 88/72 (77) 100 02/10/17 05:50 94 97/74 (82) 95 02/10/17 04:00 97.5 62 19 107/84 (92) 95 02/10/17 00:00 97.3 100 20 100/80 (87) 99 02/09/17 21:34 100 Nasal Cannula 1.00 02/09/17 20:00 98.0 108 20 102/82 (89) 97 02/09/17 17:43 97.8 110 16 111/75 (87) 93 02/09/17 16:35 101 16 100 02/09/17 16:30 100 14 111/83 (92) 10 Nasal Cannula 2 02/09/17 16:15 97 14 112/80 (91) 99 Nasal Cannula 2 02/09/17 16:09 97.7 98 14 108/75 (86) 100 02/09/17 11:47 96.1 97 19 109/86 (94) 100 I/O 02/09/17 02/09/17 02/09/17 02/10/17 02/10/17 02/10/17 07:00 15:00 23:00 07:00 15:00 23:00 Intake Total 400 ml Output Total 50 ml Balance 400 ml -50 ml Other 400 ml Output Urine Total 50 ml Laboratory Laboratory Tests Test 02/09/17 18:32 02/10/17 05:59 Hemoglobin 9.8 8.9 Hematocrit 34.2 28.7 White Blood Count 9.0 Red Blood Count 3.47 Mean Corpuscular Volume 82.7 Mean Corpuscular Hemoglobin 25.6 Mean Corpuscular Hemoglobin Concent 30.9 Red Cell Distribution Width 21.9 Platelet Count 246 Mean Platelet Volume 7.1 Neutrophils (%) (Auto) 72.1 Lymphocytes (%) (Auto) 5.9 Monocytes (%) (Auto) 8.5 Eosinophils (%) (Auto) 12.7 Basophils (%) (Auto) 0.8 Neutrophils # (Auto) 6.5 Lymphocytes # (Auto) 0.5 Monocytes # (Auto) 0.8 Eosinophils # (Auto) 1.1 Basophils # (Auto) 0.1 CBC Comment DIFF FINAL Differential Comment Blood Urea Nitrogen 12 Creatinine 0.49 Random Glucose 10 Total Protein 4.6 Albumin 1.7 Calcium Level 6.8 Alkaline Phosphatase 95 Aspartate Amino Transf (AST/SGOT) 23 Alanine Aminotransferase (ALT/SGPT) 13 Total Bilirubin 0.4 Sodium Level 131 Potassium Level 3.6 Chloride Level 101 Carbon Dioxide Level 21.9 Anion Gap 8 Estimat Glomerular Filtration Rate 211 Protein Corrected Calcium 8.1 Physical Exam HEENT: Normocephalic; atraumatic; no jaundice. CHEST: Resp even/unlabored. CARDIAC: RRR. ABDOMEN: Soft, epigastric fullness, nontender; no hepatosplenomegaly; bowel sounds are present in all four quadrants. EXTREMITIES: Mild pedal edema. SKIN: Normal; no rash; no jaundice. 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 (Kayla IrahetaP) Assessment and Plan Plan ASSESSMENT: - Upper gib with melena x 6 days. Pt with known metastatic lung cancer. He is not on chemotherapy at this time. S/P EGD (02/09/17)---> gastritis, gastric ulcer. PPI. No active GI bleeding. H/H 8.9/28.7. - Anemia, acute blood loss. HH 8.9/28.7. - Hypoglycemia, per attending. - Metastatic adenocarcinoma of lung with extensive metastasis to the mediastinal lymph nodes, left supraclavicular lymph nodes,bilateral adrenal glands, and liver, who presented to the emergency room for evaluation of black tarry stools. 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 He was started on palliative radiation, but was not able to be started on outpatient palliative systemic therapy with Dr. Arana, secondary to lack of insurance. He was hospitalized at this facility earlier this month and was seen by Dr. Chavez. The plan was to start palliative chemotherapy as outpt, but the patient has not yet followed up as outpatient. Palliative care/Hospice consulted. PLAN: - Heart healthy diet - Protonix 40mg po BID - Monitor HH - Transfuse as necessary - Supportive care - Further recommendations to follow based on results of above - Pt seen and examined by Dr. Manning and myself and this note is written on his behalf (Kayla Iraheta) Physician Comments Patient seen and examined Agree with above Continue with current supportive care Monitor labs (Braulio Manning MD) Kayla Iraheta Feb 10, 2017 11:36 Braulio Manning MD Feb 10, 2017 18:42
[2017-02-10] MEDS: INSULIN ASPART SUPPLEMENTAL SCALE SQ SCH ×4 (12:00→21:27)
--- NOTE | 2017-02-10 12:49 | HHI.PR ---
Subjective Remarks Follow-up GI bleed/metastases lung and now symptomatic hypoglycemia 02/10/17-patient seen and examined, although lethargic however is oriented and alert 3. [place] was called early this morning secondary to severe lethargy. Patient's found to have glucose 10, has responded to D50W. Patient denies any more episode of tarry black stool. Brother by the bedside. patient is now requesting grits and pineapple for breakfast Objective Vitals Vital Signs Date Time Temp Pulse Resp B/P (MAP) Pulse Ox O2 Delivery O2 Flow Rate FiO2 02/10/17 08:00 98.4 89 100/82 (88) 100 02/10/17 07:00 89 02/10/17 06:45 107 143/94 (110) 98 02/10/17 06:35 107 147/104 (118) 100 02/10/17 06:30 103 140/96 (111) 100 02/10/17 06:20 92 88/72 (77) 100 02/10/17 05:50 94 97/74 (82) 95 02/10/17 04:00 97.5 62 19 107/84 (92) 95 02/10/17 00:00 97.3 100 20 100/80 (87) 99 02/09/17 21:34 100 Nasal Cannula 1.00 02/09/17 20:00 98.0 108 20 102/82 (89) 97 02/09/17 17:43 97.8 110 16 111/75 (87) 93 02/09/17 16:35 101 16 100 02/09/17 16:30 100 14 111/83 (92) 10 Nasal Cannula 2 02/09/17 16:15 97 14 112/80 (91) 99 Nasal Cannula 2 02/09/17 16:09 97.7 98 14 108/75 (86) 100 I/O 02/09/17 02/09/17 02/09/17 02/10/17 02/10/17 02/10/17 07:00 15:00 23:00 07:00 15:00 23:00 Intake Total 400 ml Output Total 50 ml Balance 400 ml -50 ml Other 400 ml Output Urine Total 50 ml Result Diagram: 02/10/17 0559 02/10/17 0559 Objective Remarks GENERAL: Frail, somehow lethargic but oriented SKIN: Warm and dry. HEAD: Normocephalic. EYES: No scleral icterus. No injection or drainage. NECK: Supple, trachea midline. No JVD or lymphadenopathy. CARDIOVASCULAR: Regular rate and rhythm without murmurs, gallops, or rubs. RESPIRATORY: Breath sounds equal bilaterally. No accessory muscle use. GASTROINTESTINAL: Abdomen soft, non-tender, nondistended. MUSCULOSKELETAL: No cyanosis, or edema. BACK: Nontender without obvious deformity. No CVA tenderness. A/P Problem List: (1) GI bleeding ICD Code: K92.2 - Gastrointestinal hemorrhage, unspecified Status: Acute (2) Coagulopathy ICD Code: D68.9 - Coagulation defect, unspecified Status: Acute (3) adenocarcinoma of lung, stage IV, widespread metastatic disease (4) Hypoglycemia, suspected, in hospital patient ICD Code: E16.2 - Hypoglycemia, unspecified Assessment and Plan 61-year-old man with Metabolic encephalopathy Secondary to hypoglycemia Resolving Hypoglycemia suspecting hospital as patient Responding with treatment with D50W Continue with hypoglycemia protocol Upper GI bleeding Coagulopathy Appreciate input from gastroenterology S/P EGD (02/09/17)---> gastritis, gastric ulcer. Continue Protonix 40 mg twice a day PO Serial monitoring of H&H No active bleeding since admission Normochromic normocytic anemia H&H currently stable Transfuse accordingly for hemoglobin less than 8 Leukocytosis Stress reactive Resolved Hypotension Continue with Gentle IV fluid hydration and monitor BP History of metastasis to lung cancer Appreciate input from palliative care medicine Will consult hospice 02/10/17 Continue Megace and consult PT Appreciate input from oncology COPD No current exacerbation DuoNeb when necessary and resume long-acting bronchodilator Other chronic medical conditions Continue outpatient medications DVT prophylaxis: Bilateral SCDs, chemical anti-prophylaxis is contraindicated secondary to GI bleed GI prophylaxis: PPI Timothy Hannah MD Feb 10, 2017 12:49
[2017-02-10] MEDS: DEXTROSE 50% IN WATER 50 ML VIAL(D50) IV PUSH PRN ×3 (13:13→17:30)
[2017-02-10] MEDS: MORPHINE SULFATE 4 MG/ML INJ IV PUSH PRN ×2 (14:15→19:42)
--- NOTE | 2017-02-10 17:02 | EKG ---
Date Performed: 02/10/2017 Time Performed: 06:37:14 PTAGE: 61 years EKG: Sinus tachycardia with PVC(s). --- Suspect limb lead reversal - only V1-V6 analyzed --- Pos sible anterior infarct - age undetermined Inferior T wave changes are nonspecific Abnormal ECG PREVIOUS TRACING : 02/09/2017 05.05 Compared to prior tracing no significant change DOCTOR: Alexy Cary Interpretating Date/Time 02/10/2017 17:01:00
[2017-02-10] MEDS ORDERED: DEXTROSE 5% IN WATE 1000ML INJ 1,000 ML IV SCH (19:00)
[2017-02-10 19:03] LABS: HEMATOCRIT 32.5 % (39.0-51.0)
[2017-02-10 19:04] LABS: REVIEW FLAG FINAL
[2017-02-10] MEDS: BUDESONIDE-FORMOTEROL 160/4.5 MCG INHALER INH SCH (19:42)
[2017-02-10] MEDS: PANTOPRAZOLE SOD 40 MG DELAYED RELEASE TAB PO SCH (19:42)
[2017-02-11] VITALS (10 sets, daily range): BP systolic 100–148; BP diastolic 70–76; PULSE 22–108; RESP 16–18; TEMP 97.2–100; O2SAT 95–100
[2017-02-11] MEDS: MORPHINE SULFATE 4 MG/ML INJ IV PUSH PRN ×4 (00:19→15:34)
[2017-02-11 07:36] LABS: AUTOMATED NEUTROPHIL # 8.2 TH/MM3 (1.8-7.7); BASOPHIL # 0.1 TH/MM3 (0-0.2); BASOPHIL % 0.7 % (0.0-2.0); EOSINOPHIL # 1.2 TH/MM3 (0-0.4); EOSINOPHIL % 10.5 % (0.0-4.0); HEMATOCRIT 29.8 % (39.0-51.0); HEMO FLAGS DIFF FINAL; LYMPH % 7.4 % (9.0-44.0); LYMPHOCYTE # 0.8 TH/MM3 (1.0-4.8); MEAN CELL VOLUME 83.4 FL (80.0-100.0); MEAN CORPUSCULAR HEMOGLOBIN 25.3 PG (27.0-34.0); MEAN CORPUSCULAR HGB CONC 30.4 % (32.0-36.0); MONO % 7.6 % (0.0-8.0); NEUT % 73.8 % (16.0-70.0); PLATELET COUNT 228 TH/MM3 (150-450); RED BLOOD COUNT 3.57 MIL/MM3 (4.50-5.90); RED CELL DISTRIBUTION WIDTH 21.3 % (11.6-17.2); WHITE BLOOD COUNT 11.2 TH/MM3 (4.0-11.0)
[2017-02-11] MEDS: INSULIN ASPART SUPPLEMENTAL SCALE SQ SCH ×4 (08:00→21:00)
[2017-02-11 08:27] LABS: CALCIUM-PROTEIN CORRECTED 7.9 MG/DL (8.5-10.1); POTASSIUM 3.8 MEQ/L (3.5-5.1); TOTAL BILIRUBIN ADULT 0.4 MG/DL (0.2-1.0)
[2017-02-11] MEDS: PANTOPRAZOLE SOD 40 MG DELAYED RELEASE TAB PO SCH ×2 (08:46→21:35)
[2017-02-11] MEDS: SODIUM CHLORIDE 0.9% FLUSH 10 ML FLUSH IV FLUSH SCH ×2 (08:47→21:35)
[2017-02-11] MEDS: MEGESTROL ACETATE SUSP 400 MG/10 ML CUP PO SCH ×2 (08:47→21:36)
[2017-02-11] MEDS: BUDESONIDE-FORMOTEROL 160/4.5 MCG INHALER INH SCH ×2 (08:47→21:35)
[2017-02-11] MEDS: ACETAMINOPHEN/HYDROcodone 325 MG/7.5 MG TAB PO PRN ×3 (08:49→21:34)
--- NOTE | 2017-02-11 10:07 | HHI.GIFU ---
Subjective Remarks Resting in bed. Reports lower abdominal pain. States he had morphine last night and this made the pain go away. Denies nausea of vomiting. Tolerating diet. Denies any further black, tarry stools. (Meri Toscano) Objective Vitals I&O Vital Signs Date Time Temp Pulse Resp B/P (MAP) Pulse Ox O2 Delivery O2 Flow Rate FiO2 02/11/17 09:25 22 02/11/17 09:14 98 Nasal Cannula 3.00 02/11/17 04:37 16 02/11/17 04:30 97.2 108 16 102/70 (81) 95 02/11/17 00:06 105 02/10/17 20:07 98 Nasal Cannula 2.00 02/10/17 17:01 98.3 94 18 108/86 (93) 100 02/10/17 12:30 20 02/10/17 12:00 97.9 104 96/80 (85) 98 I/O 02/10/17 02/10/17 02/10/17 02/11/17 02/11/17 02/11/17 07:00 15:00 23:00 07:00 15:00 23:00 Intake Total 240 ml Output Total 50 ml 200 ml Balance -50 ml 40 ml Intake Oral 240 ml Output Urine Total 50 ml 200 ml Laboratory Laboratory Tests Test 02/10/17 18:24 02/11/17 07:07 Hemoglobin 9.8 9.0 Hematocrit 32.5 29.8 White Blood Count 11.2 Red Blood Count 3.57 Mean Corpuscular Volume 83.4 Mean Corpuscular Hemoglobin 25.3 Mean Corpuscular Hemoglobin Concent 30.4 Red Cell Distribution Width 21.3 Platelet Count 228 Mean Platelet Volume 7.1 Neutrophils (%) (Auto) 73.8 Lymphocytes (%) (Auto) 7.4 Monocytes (%) (Auto) 7.6 Eosinophils (%) (Auto) 10.5 Basophils (%) (Auto) 0.7 Neutrophils # (Auto) 8.2 Lymphocytes # (Auto) 0.8 Monocytes # (Auto) 0.8 Eosinophils # (Auto) 1.2 Basophils # (Auto) 0.1 CBC Comment DIFF FINAL Differential Comment Blood Urea Nitrogen 11 Creatinine 0.71 Random Glucose 382 Total Protein 4.7 Albumin 1.7 Calcium Level 6.7 Alkaline Phosphatase 99 Aspartate Amino Transf (AST/SGOT) 20 Alanine Aminotransferase (ALT/SGPT) 14 Total Bilirubin 0.4 Sodium Level 122 Potassium Level 3.8 Chloride Level 90 Carbon Dioxide Level 21.0 Anion Gap 11 Estimat Glomerular Filtration Rate 138 Protein Corrected Calcium 7.9 Physical Exam HEENT: Normocephalic; atraumatic; no jaundice. CHEST: Resp even/unlabored. CARDIAC: RRR. ABDOMEN: Soft, nontender; no hepatosplenomegaly; bowel sounds are present x 4 quadrants EXTREMITIES: Mild pedal edema. SKIN: Normal; no rash; no jaundice. 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 Pt with known metastatic lung cancer. He is not on chemotherapy at this time. S/P EGD (02/09/17)---> gastritis, gastric ulcer. PPI. No active GI bleeding. H/H 01/19.8 - Anemia, acute blood loss. HH 01/19.8 - Hypoglycemia, per attending. - Metastatic adenocarcinoma of lung with extensive metastasis to the mediastinal lymph nodes, left supraclavicular lymph nodes,bilateral adrenal glands, and liver, who presented to the emergency room for evaluation of black tarry stools. 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 He was started on palliative radiation, but was not able to be started on outpatient palliative systemic therapy with Dr. Arana, secondary to lack of insurance. He was hospitalized at this facility earlier this month and was seen by Dr. Chavez. The plan was to start palliative chemotherapy as outpt, but the patient has not yet followed up as outpatient. Palliative care/Hospice consulted. PLAN: - Heart healthy diet - Protonix 40mg po BID - Monitor HH. transfuse as necessary - Supportive care - Further recommendations to follow based on results of above Patient seen and examined by Dr. Manning and myself and this note is written on his behalf (Meri Toscano) Physician Comments Patient seen and examined Agree with above Continue with current supportive care Monitor labs No active bleeding Continue PPI Not much to add from a GI standpoint therefore we shall sign off (NigelBraulio issa Bessie Joyce ARNP Feb 11, 2017 10:07 Braulio Manning MD Feb 11, 2017 13:27
--- NOTE | 2017-02-11 11:35 | HHI.PR ---
Subjective Remarks Follow-up GI bleed/metastases lung and now symptomatic hypoglycemia 02/10/17-patient seen and examined, although lethargic however is oriented and alert 3. [place] was called early this morning secondary to severe lethargy. Patient's found to have glucose 10, has responded to D50W. Patient denies any more episode of tarry black stool. Brother by the bedside. patient is now requesting grits and pineapple for breakfast 02/11/17-patient seen and examined, complained of abdominal pain her glucose up to 300+. Sodium down to 123. Good appetite. Patient denies any GI bleed. Objective Vitals Vital Signs Date Time Temp Pulse Resp B/P (MAP) Pulse Ox O2 Delivery O2 Flow Rate FiO2 02/11/17 09:25 22 02/11/17 09:14 98 Nasal Cannula 3.00 02/11/17 04:37 16 02/11/17 04:30 97.2 108 16 102/70 (81) 95 02/11/17 00:06 105 02/10/17 20:07 98 Nasal Cannula 2.00 02/10/17 17:01 98.3 94 18 108/86 (93) 100 02/10/17 12:30 20 02/10/17 12:00 97.9 104 96/80 (85) 98 I/O 02/10/17 02/10/17 02/10/17 02/11/17 02/11/17 02/11/17 07:00 15:00 23:00 07:00 15:00 23:00 Intake Total 240 ml 240 ml Output Total 50 ml 200 ml 125 ml Balance -50 ml 40 ml 115 ml Intake Oral 240 ml 240 ml Output Urine Total 50 ml 200 ml 125 ml Result Diagram: 02/11/1707 02/11/1707 Objective Remarks GENERAL: Frail, somehow lethargic but oriented SKIN: Warm and dry. HEAD: Normocephalic. EYES: No scleral icterus. No injection or drainage. NECK: Supple, trachea midline. No JVD or lymphadenopathy. CARDIOVASCULAR: Regular rate and rhythm without murmurs, gallops, or rubs. RESPIRATORY: Breath sounds equal bilaterally. No accessory muscle use. GASTROINTESTINAL: Abdomen soft, non-tender, nondistended. MUSCULOSKELETAL: No cyanosis, or edema. BACK: Nontender without obvious deformity. No CVA tenderness. A/P Problem List: (1) GI bleeding ICD Code: K92.2 - Gastrointestinal hemorrhage, unspecified Status: Acute (2) Coagulopathy ICD Code: D68.9 - Coagulation defect, unspecified Status: Acute (3) adenocarcinoma of lung, stage IV, widespread metastatic disease (4) Hypoglycemia, suspected, in hospital patient ICD Code: E16.2 - Hypoglycemia, unspecified Assessment and Plan 61-year-old man with Metabolic encephalopathy Secondary to hypoglycemia Resolved Hypoglycemia suspecting hospital as patient Improved D5W him a therefore will discontinue it Continue with hypoglycemia protocol Upper GI bleeding Coagulopathy Appreciate input from gastroenterology S/P EGD (02/09/17)---> gastritis, gastric ulcer. Continue Protonix 40 mg twice a day PO Serial monitoring of H&H No active bleeding since admission Normochromic normocytic anemia H&H currently stable Transfuse accordingly for hemoglobin less than 8 Leukocytosis Stress reactive Resolved Hypotension Continue with Gentle IV fluid hydration and monitor BP History of metastasis to lung cancer Appreciate input from palliative care medicine hospice consulted 02/10/17 Continue Megace and consult PT Appreciate input from oncology COPD No current exacerbation DuoNeb when necessary and resume long-acting bronchodilator Hyponatremia Start NS at 50 mL/hour Other chronic medical conditions Continue outpatient medications DVT prophylaxis: Bilateral SCDs, chemical anti-prophylaxis is contraindicated secondary to GI bleed GI prophylaxis: PPI Timothy Hannah MD Feb 11, 2017 11:35
[2017-02-11] MEDS ORDERED: SODIUM CHLOR 0.9% 1000 ML INJ 1,000 ML IV SCH (11:45)
[2017-02-11] MEDS: DEXTROSE 50% IN WATER 50 ML VIAL(D50) IV PUSH PRN (17:52)
[2017-02-12 00:09] VITALS: PULSE 97
[2017-02-12 00:59] VITALS: BP 93/69; PULSE 99; RESP 16; TEMP 97.3; O2SAT 95
[2017-02-12] MEDS: ACETAMINOPHEN/HYDROcodone 325 MG/7.5 MG TAB PO PRN ×2 (01:13→09:09)
[2017-02-12] MEDS ORDERED: diphenhydrAMINE HCL 25 MG CAP PO ONE ×2 (02:30→11:30)
[2017-02-12 03:48] VITALS: BP 94/80; PULSE 96; RESP 16; TEMP 97.4; O2SAT 97
[2017-02-12 04:06] VITALS: PULSE 99
[2017-02-12 07:07] LABS: INTERNATIONAL NORMALIZED RATIO 1.4 RATIO; PROTHROMBIN TIME - PATIENT 15.6 SEC (9.8-11.6)
[2017-02-12 07:38] LABS: BICARBONATE 21.2 MEQ/L (21.0-32.0); POTASSIUM 4.6 MEQ/L (3.5-5.1)
[2017-02-12 07:56] LABS: CALCIUM-PROTEIN CORRECTED 8.3 MG/DL (8.5-10.1)
[2017-02-12] MEDS: INSULIN ASPART SUPPLEMENTAL SCALE SQ SCH ×2 (08:00→12:00)
[2017-02-12] MEDS: PANTOPRAZOLE SOD 40 MG DELAYED RELEASE TAB PO SCH (08:06)
[2017-02-12] MEDS: DEXTROSE 50% IN WATER 50 ML VIAL(D50) IV PUSH PRN (08:06)
[2017-02-12] MEDS: MEGESTROL ACETATE SUSP 400 MG/10 ML CUP PO SCH (08:06)
[2017-02-12] MEDS: BUDESONIDE-FORMOTEROL 160/4.5 MCG INHALER INH SCH (08:06)
[2017-02-12] MEDS: SODIUM CHLORIDE 0.9% FLUSH 10 ML FLUSH IV FLUSH SCH (08:07)
[2017-02-12 08:20] VITALS: BP 109/84; PULSE 100; RESP 17; TEMP 97.3; O2SAT 100
--- NOTE | 2017-02-12 08:40 | PD.ONC.PN ---
Subjective Subjective Remarks Patient seen and examined, he reports feeling comfortable. He tells me he was seen by Hospice yesterday and tells me he is agreeable to hospice. There have been no issues with recurrent GI bleeding over the weekend. Objective Data Date Time Temp Pulse Resp B/P (MAP) Pulse Ox O2 Delivery O2 Flow Rate FiO2 02/12/17 08:20 97.3 100 17 109/84 (92) 100 02/12/17 04:06 99 02/12/17 03:48 97.4 96 16 94/80 (85) 97 02/12/17 00:59 97.3 99 16 93/69 (77) 95 02/12/17 00:09 97 02/11/17 20:58 Nasal Cannula 3.00 02/11/17 20:06 103 02/11/17 19:50 97.3 98 18 109/74 (86) 100 02/11/17 16:55 98.5 90 16 100/72 (81) 97 02/11/17 12:00 98.2 92 18 102/74 (83) 95 02/11/17 09:25 22 02/11/17 09:14 98 Nasal Cannula 3.00 02/12/17 02/12/17 02/12/17 07:00 15:00 23:00 Intake Total 570 ml 280 ml Output Total 100 ml 125 ml Balance 470 ml 155 ml Result Diagram: 02/11/17 0707 02/12/17 0551 Laboratory Results Laboratory Tests Test 02/12/17 05:51 Prothrombin Time 15.6 SEC Prothromb Time International Ratio 1.4 RATIO Blood Urea Nitrogen 18 MG/DL Creatinine 1.06 MG/DL Random Glucose 30 MG/DL Total Protein 5.0 GM/DL Calcium Level 7.2 MG/DL Sodium Level 130 MEQ/L Potassium Level 4.6 MEQ/L Chloride Level 99 MEQ/L Carbon Dioxide Level 21.2 MEQ/L Anion Gap 10 MEQ/L Estimat Glomerular Filtration Rate 87 ML/MIN Protein Corrected Calcium 8.3 MG/DL Administered Medications Medications (Trade) Dose Ordered Sig/Shravan Route PRN Reason Start Time Stop Time Status Last Admin Dose Admin Sodium Chloride (NS Flush) 2 ml BID IV FLUSH 02/09/17 09:00 02/12/17 08:07 Ondansetron HCl (Zofran Inj) 4 mg Q6H PRN IVP NAUSEA OR VOMITING 02/09/17 08:00 02/09/17 21:09 Acetaminophen/ Hydrocodone Bitart (Strang 7.5-325 Mg) 1 tab Q4H PRN PO PAIN SCALE 6 TO 10 02/09/17 08:00 02/12/17 01:13 Morphine Sulfate (Morphine Inj) 1 mg Q4H PRN IV PUSH BREAKTHROUGH PAIN 02/09/17 08:00 02/11/17 15:34 Naloxone HCl (Narcan Inj) 0.4 mg UNSCH PRN IV PUSH SEE LABEL COMMENTS 02/09/17 08:00 02/10/17 06:35 Budesonide/ Formoterol Fumarate (Symbicort 160-4.5 Inh) 1 puff Q12HR INH 02/09/17 21:00 02/12/17 08:06 Megestrol Acetate (Megace Liq) 400 mg BID PO 02/09/17 21:00 02/12/17 08:06 Dextrose (D50w (Vial) Inj) 50 ml UNSCH PRN IV PUSH HYPOGLYCEMIA-SEE COMMENTS 02/10/17 08:15 02/12/17 08:06 Insulin Aspart (NovoLOG SUPPLEMENTAL SCALE) 1 ACHS SLIDING SCALE SQ 02/10/17 12:00 02/11/17 08:00 Pantoprazole Sodium (Protonix) 40 mg Q12HR PO 02/10/17 21:00 02/12/17 08:06 Sodium Chloride 1,000 ml @ 42 mls/hr [id number] IV 02/11/17 11:45 02/11/17 13:46 Objective Remarks GENERAL APPEARANCE: Mr. Zeng is a middle-aged male, he is laying in bed. He appears to be in no acute distress. He does appear to be somewhat sedated, apparently he has just returned from his EGD. HEAD, EYES, EARS, NOSE, THROAT: Conjunctivae are mildly pale, sclerae are anicteric, Extraocular muscles intact. Pupils equal, round and reactive to light and accommodation. Oral exam shows dry mucous membranes. NECK: Palpable pathologically enlarged left supraclavicular lymphadenopathy. RESPIRATORY EXAM: Decreased bibasilar breath sounds, prolonged expiratory phase, weak inspiratory effort. CARDIOLOGY STUDIES: Tachycardiac, S1-S2. No obvious murmurs, rubs or gallops. ABDOMEN EXAM: Belly is thin and soft, no organ enlargement. Some tenderness over the upper right and left quadrants. LOWER EXTREMITIES: Decreased muscle mass and tone. MUSCULOSKELETAL: He has severe deformity of his spine and torso RENDERER: Moving all fours limbs spontaneously. Assessment/Plan Assessment Mr. Zeng is a 61-year-old man with a diagnosis of metastatic adenocarcinoma of the lung. His disease is positive for the PDL-1 expression (80% expression) and is also positive for the MET mutation involving exon 14. He has metastatic disease to the liver, adrenal glands as well as mediastinal and supraclavicular lymph nodes. The primary tumor involves the right suprahilar lung. He has an ECOG performance status at best of 3. He is a candidate for palliative immunotherapy with Keytruda in the first-line setting. However, it has been a challenge getting him into clinic to see me. Dr. Arana of [facility] had a similar issue prior to me assuming Mr. Zeng's care. Mr. Zeng is in the hospital right now with GI bleeding. He has a history of prior GI bleeding as well and this has occurred in the setting of him being on anticoagulation for management of an SVC thrombus. Plan 1. Metastatic adenocarcinoma of the lung: Mr. Zeng appears to be comfortable, his disease related pain is well controlled at this time. He unfortunately is a suboptimal candidate for palliative systemic immunotherapy at this time due to his poor ECOG performance status. He has been evaluated by palliative care and hospice and in my assessment he is good candidate for palliative / best supportive care as opposed to aggressive disease directed therapy. Mr. Zeng indicates he is agreeable to hospice, he verbalizes understanding that if he accepts hospice, he will not be started on disease directed therapy. 2. 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 3. Anemia: Support with periodic transfusions. Disposition: August d/c to hospice care center when ready. Case discussed with Dr. Hannah. Phillip Chavez MD Feb 12, 2017 08:40
--- NOTE | 2017-02-12 11:23 | HHI.PR ---
Subjective Remarks Follow-up GI bleed/metastases lung and now symptomatic hypoglycemia 02/10/17-patient seen and examined, although lethargic however is oriented and alert 3. Stephanie was called early this morning secondary to severe lethargy. Patient's found to have glucose 10, has responded to D50W. Patient denies any more episode of tarry black stool. Brother by the bedside. patient is now requesting grits and pineapple for breakfast 02/11/17-patient seen and examined, complained of abdominal pain her glucose up to 300+. Sodium down to 123. Good appetite. Patient denies any GI bleed. 02/12/17-patient seen and examined,patient has low BG but asymptomatic from it. Case d/w Dr Chavez and patient agreed about discharge to hospice Objective Vitals Vital Signs Date Time Temp Pulse Resp B/P (MAP) Pulse Ox O2 Delivery O2 Flow Rate FiO2 02/12/17 08:20 97.3 100 17 109/84 (92) 100 02/12/17 04:06 99 02/12/17 03:48 97.4 96 16 94/80 (85) 97 02/12/17 00:59 97.3 99 16 93/69 (77) 95 02/12/17 00:09 97 02/11/17 20:58 Nasal Cannula 3.00 02/11/17 20:06 103 02/11/17 19:50 97.3 98 18 109/74 (86) 100 02/11/17 16:55 98.5 90 16 100/72 (81) 97 02/11/17 12:00 98.2 92 18 102/74 (83) 95 I/O 02/11/17 02/11/17 02/11/17 02/12/17 02/12/17 02/12/17 07:00 15:00 23:00 07:00 15:00 23:00 Intake Total 740 ml 570 ml 280 ml Output Total 125 ml 100 ml 125 ml Balance 615 ml 470 ml 155 ml Intake Oral 240 ml 120 ml IV Total 500 ml 450 ml 280 ml Output Urine Total 125 ml 100 ml 125 ml Result Diagram: 02/11/17 0707 02/12/17 0551 Objective Remarks GENERAL: Frail, somehow lethargic but oriented SKIN: Warm and dry. HEAD: Normocephalic. EYES: No scleral icterus. No injection or drainage. NECK: Supple, trachea midline. No JVD or lymphadenopathy. CARDIOVASCULAR: Regular rate and rhythm without murmurs, gallops, or rubs. RESPIRATORY: Breath sounds equal bilaterally. No accessory muscle use. GASTROINTESTINAL: Abdomen soft, non-tender, nondistended. MUSCULOSKELETAL: No cyanosis, or edema. BACK: Nontender without obvious deformity. No CVA tenderness. A/P Problem List: (1) GI bleeding ICD Code: K92.2 - Gastrointestinal hemorrhage, unspecified Status: Acute (2) Coagulopathy ICD Code: D68.9 - Coagulation defect, unspecified Status: Acute (3) adenocarcinoma of lung, stage IV, widespread metastatic disease (4) Hypoglycemia, suspected, in hospital patient ICD Code: E16.2 - Hypoglycemia, unspecified Assessment and Plan 61-year-old man with Metabolic encephalopathy Secondary to hypoglycemia Resolved Hypoglycemia suspecting in hospital patient Continue with hypoglycemia protocol Upper GI bleeding Coagulopathy Appreciate input from gastroenterology S/P EGD (02/09/17)---> gastritis, gastric ulcer. Continue Protonix 40 mg twice a day PO Serial monitoring of H&H No active bleeding since admission Normochromic normocytic anemia H&H currently stable Transfuse accordingly for hemoglobin less than 8 Leukocytosis Stress reactive Resolved Hypotension Continue with Gentle IV fluid hydration and monitor BP History of metastasis to lung cancer Appreciate input from palliative care medicine Per Oncology patient is a suboptimal candidate for palliative systemic immunotherapy at this time due to his poor ECOG performance status Continue Megace and consult PT Will discharge patient home with Hospice after case discussed with Katarina Jade RN COPD No current exacerbation DuoNeb when necessary and resume long-acting bronchodilator Hyponatremia Start NS at 50 mL/hour Other chronic medical conditions Continue outpatient medications DVT prophylaxis: Bilateral SCDs, chemical anti-prophylaxis is contraindicated secondary to GI bleed GI prophylaxis: PPI Timothy Hannah MD Feb 12, 2017 11:23
--- NOTE | 2017-02-12 11:30 | HHI.DS ---
Discharge Summary Admission Date Feb 09, 2017 at 07:36 Discharge Date: Feb 12, 2017 Admitting Diagnosis GI bleed, Coagulopathy (1) GI bleeding ICD Code: K92.2 - Gastrointestinal hemorrhage, unspecified Status: Acute (2) Coagulopathy ICD Code: D68.9 - Coagulation defect, unspecified Status: Acute (3) adenocarcinoma of lung, stage IV, widespread metastatic disease (4) Hypoglycemia, suspected, in hospital patient ICD Code: E16.2 - Hypoglycemia, unspecified Procedures EGD Brief History - From Admission 61 year-old -[place] male with a history of metastases lung cancer diagnosed in November 2016, presented to the ED for evaluation of black tarry stool with lower abdominal cramping, which started over the past weekend. patient denies any hemoptysis, hematemesis or hematuria. Denies any prior history of peptic ulcer disease. He reveals a on blood thinner however does not recall when he stopped taking it. Abnormal labs include H&H 9.1/29.6, platelets 247, INR 1.5 and PT 17.4. He also complains of weakness as well as shortness of breath. CBC/BMP: 02/11/17 0707 02/12/17 0551 Significant Findings Laboratory Tests Test 02/09/17 18:32 02/10/17 05:59 02/10/17 18:24 02/11/17 07:07 Hemoglobin 9.8 GM/DL (13.0-17.0) 8.9 GM/DL (13.0-17.0) 9.8 GM/DL (13.0-17.0) 9.0 GM/DL (13.0-17.0) Hematocrit 34.2 % (39.0-51.0) 28.7 % (39.0-51.0) 32.5 % (39.0-51.0) 29.8 % (39.0-51.0) Red Blood Count 3.47 MIL/MM3 (4.50-5.90) 3.57 MIL/MM3 (4.50-5.90) Mean Corpuscular Hemoglobin 25.6 PG (27.0-34.0) 25.3 PG (27.0-34.0) Mean Corpuscular Hemoglobin Concent 30.9 % (32.0-36.0) 30.4 % (32.0-36.0) Red Cell Distribution Width 21.9 % (11.6-17.2) 21.3 % (11.6-17.2) Neutrophils (%) (Auto) 72.1 % (16.0-70.0) 73.8 % (16.0-70.0) Lymphocytes (%) (Auto) 5.9 % (9.0-44.0) 7.4 % (9.0-44.0) Monocytes (%) (Auto) 8.5 % (0.0-8.0) Eosinophils (%) (Auto) 12.7 % (0.0-4.0) 10.5 % (0.0-4.0) Lymphocytes # (Auto) 0.5 TH/MM3 (1.0-4.8) 0.8 TH/MM3 (1.0-4.8) Eosinophils # (Auto) 1.1 TH/MM3 (0-0.4) 1.2 TH/MM3 (0-0.4) Creatinine 0.49 MG/DL (0.60-1.30) Random Glucose 10 MG/DL (74-106) 382 MG/DL (74-106) Total Protein 4.6 GM/DL (6.4-8.2) 4.7 GM/DL (6.4-8.2) Albumin 1.7 GM/DL (3.4-5.0) 1.7 GM/DL (3.4-5.0) Calcium Level 6.8 MG/DL (8.5-10.1) 6.7 MG/DL (8.5-10.1) Sodium Level 131 MEQ/L (136-145) 122 MEQ/L (136-145) Protein Corrected Calcium 8.1 MG/DL (8.5-10.1) 7.9 MG/DL (8.5-10.1) White Blood Count 11.2 TH/MM3 (4.0-11.0) Neutrophils # (Auto) 8.2 TH/MM3 (1.8-7.7) Chloride Level 90 MEQ/L (98-107) Test 02/12/17 05:51 Prothrombin Time 15.6 SEC (9.8-11.6) Random Glucose 30 MG/DL (74-106) Total Protein 5.0 GM/DL (6.4-8.2) Calcium Level 7.2 MG/DL (8.5-10.1) Sodium Level 130 MEQ/L (136-145) Estimat Glomerular Filtration Rate 87 ML/MIN (>89) Protein Corrected Calcium 8.3 MG/DL (8.5-10.1) PE at Discharge GENERAL: Frail, somehow lethargic but oriented SKIN: Warm and dry. HEAD: Normocephalic. EYES: No scleral icterus. No injection or drainage. NECK: Supple, trachea midline. No JVD or lymphadenopathy. CARDIOVASCULAR: Regular rate and rhythm without murmurs, gallops, or rubs. RESPIRATORY: Breath sounds equal bilaterally. No accessory muscle use. GASTROINTESTINAL: Abdomen soft, non-tender, nondistended. MUSCULOSKELETAL: No cyanosis, or edema. BACK: Nontender without obvious deformity. No CVA tenderness. Hospital Course Patient admitted secondary to upper GI bleed for which gastroenterology was consulted and he underwent EGD. Patient was treated with PPI. Hospitalization was complicated by episode of hypoglycemia and patient responding to treatment per hyperglycemia protocol. Oncology was consulted secondary to patient history of metastasis lung disease, however per team patient is a suboptimal candidate for palliative systemic immunotherapy at this time due to his poor ECOG performance status. They agreed on hospice discharge. All electrolyte abnormalities were corrected prior to discharge. Patient will be discharged to hospice care center Pt Condition on Discharge: Deteriorating Discharge Disposition: Hospice/Med Facility Discharge Time: > 30 minutes Discharge Instructions Follow up Referrals: PCP Follow-up - 2-3 Days New Medications: Pantoprazole (Pantoprazole) 40 Mg Tab 40 MG PO Q12HR for Prevent Stress Ulcers, #60 TAB Continued Medications: Albuterol 18 GM Inh (Ventolin Hfa 18 GM Inh) 90 Mcg/Act Aer 2 PUFF INH Q4H PRN for SHORTNESS OF BREATH, #1 INHALER 0 Refills Budesonide-Formoterol Inh (Symbicort Inh) 160-4.5 Mcg/Act Aero 1 PUFF INH Q12HR for Shortness of Breath, #1 INHALER 0 Refills Ferrous Sulfate (Feosol) 325 Mg (65 Mg Iron) Tab 200 MG PO BIDPC for Nutritional Supplement, #60 TAB 0 Refills Hydrocodone-Acetaminophen (Hydrocodone-Acetaminophen) 10-325 mg Tab 1 TAB PO Q4H PRN for PAIN SCALE 6 TO 10, #60 TAB Ipratropium-Albuterol Neb (Duoneb) 0.5-2.5 Mg/3 Ml Neb 1 AMPULE NEB Q4HR WHILE AWAKE NEB for Shortness of Breath, #180 ML Megestrol Liq (Megestrol Liq) 40 Mg/Ml Susp 400 MG PO BID for Nutritional Supplement, #600 ML Sennosides-Docusate Sodium (Senna Plus 8.6-50 mg) 8.6 Mg-50 Mg Tab 2 TAB PO BID for Constipation, #120 TAB Discontinued Medications: [Lactulose Liq] () 30 ML SYRP 30 ML PO DAILY PRN for SEVERE CONSITIPATION, #900 ML Timothy Hannah MD Feb 12, 2017 11:30
[2017-02-12] MEDS ORDERED: PANT40TA3 PO (11:44)
[2017-02-12 12:03] VITALS: BP 96/71; PULSE 107; RESP 17; TEMP 98; O2SAT 97
== END 2017-02-12 15:03 | disposition hospice, inpatient (51) | DRG 377 ==
LOC: NEPE 04:46 → NEDA 07:36 → N06A 08:41 → HCIS 17:16
PROVIDERS: ADMIT Hospitalist; ATTEND Hospitalist
PROC: 0DB68ZX Excision of Stomach, Via Natural or Artificial Opening Endoscopic, Diagnostic (ICD-10-PCS; principal; 2017-02-09 15:36)
DX: K25.4 Chronic or unspecified gastric ulcer with hemorrhage (principal); G93.41 Metabolic encephalopathy; R64 Cachexia; Z51.5 Encounter for palliative care; D68.9 Coagulation defect, unspecified; C78.7 Secondary malignant neoplasm of liver and intrahepatic bile duct; C34.11 Malignant neoplasm of upper lobe, right bronchus or lung; C77.1 Secondary and unspecified malignant neoplasm of intrathoracic lymph nodes; C79.72 Secondary malignant neoplasm of left adrenal gland; C79.71 Secondary malignant neoplasm of right adrenal gland; E46 Unspecified protein-calorie malnutrition; K29.51 Unspecified chronic gastritis with bleeding; E87.1 Hypo-osmolality and hyponatremia; D62 Acute posthemorrhagic anemia; Z68.1 Body mass index [BMI] 19.9 or less, adult; I95.9 Hypotension, unspecified; D72.829 Elevated white blood cell count, unspecified; J44.9 Chronic obstructive pulmonary disease, unspecified; E16.2 Hypoglycemia, unspecified; K29.70 Gastritis, unspecified, without bleeding; K21.9 Gastro-esophageal reflux disease without esophagitis; F12.90 Cannabis use, unspecified, uncomplicated; M41.9 Scoliosis, unspecified; R06.83 Snoring; M19.90 Unspecified osteoarthritis, unspecified site; Z66 Do not resuscitate; Z80.3 Family history of malignant neoplasm of breast; Z86.711 Personal history of pulmonary embolism; Z86.718 Personal history of other venous thrombosis and embolism; Z99.81 Dependence on supplemental oxygen
CPT/HCPCS: 80048; 80053; 82948; 83690; 84155; 85014; 85018; 85025; 85610; 85730; 88305; 88312; 93005; 96361; 96374; C9113; J1815; J2270; J2310; J2405; J7030; J7040; J7070